=== PATIENT | female | born 1940 | race Hispanic/Latino ===

== ENCOUNTER 2019-06-23 12:27 | Inpatient (IN) | payer MEDICARE, OTHER ==
[~2019-06-23] VITALS: Ht 157.5 cm; Wt 82.2 kg
--- OUTSIDE RECORDS SUMMARY | 2019-06-23 12:31 | XMS REPORT | Continuity of Care Document ---
Author Author [employer] Address Unknown Phone Unavailable Care Team Providers Care Aurist Name Role Phone [employer] Unavailable Unavailable Problems Problem Status Onset Date Classification Date Reported Comments Source Noninfective gastroenteritis and colitis, unspecified 11/03/2017 02/09/2018 [facility] CHEST PAIN, HEADACHE Active 05/26/2016 [facility] HEADACHE Active 05/26/2016 [facility] Essential (primary) hypertension 02/09/2018 [facility] Type 2 diabetes mellitus without complications 02/09/2018 [facility] Anxiety (finding) Active Problem 02/09/2018 [facility] Cerebrovascular accident (disorder) Resolved Problem 02/09/2018 [facility] Diabetes mellitus (disorder) Active Problem 02/09/2018 [facility] Gastroesophageal reflux disease (disorder) Active Problem 02/09/2018 [facility] Hypertensive disorder, systemic arterial (disorder) Active Problem 02/09/2018 [facility] Insomnia (disorder) Active Problem 02/09/2018 [facility] Meningitis (disorder) Resolved Problem 02/09/2018 [facility] Medications Medication Details Route Status Patient Instructions Ordering Provider Order Date Source Famotidine 20 MG Oral Tablet [Pepcid] 20 mg=1 tab, PO, BID, # 14 tab, 0 Refill(s) Active 11/04/2017 [facility] Ondansetron 4 MG Oral Tablet [Zofran] 4 mg=1 tab, PO, BID, PRN Nausea, # 10 tab, 0 Refill(s) Active 11/04/2017 [facility] Ondansetron 4 mg, 2 mL, Route: IVP, Drug form: INJ, ONCE, Dosing Weight 81.818, kg, Priority: STAT, Start date: 11/03/17 18:30:00 [employer], Stop date: 11/03/17 18:30:00 CSTNotes: (Same as: Zofran) MEDICATION WASTE Product Size: 4 mg Product Wasted: ___ mg Inactive 11/04/2017 [facility] Famotidine 20 mg, 2 mL, Route: IVP, Drug form: INJ, ONCE, Dosing Weight 81.818, kg, Priority: STAT, Start date: 11/03/17 18:30:00 [employer]URN[employer], Stop date: 11/03/17 18:30:00 CSTNotes: (Same as: Pepcid) Can be dilute in 5-10cc NS IVP: Slow IV push over at least 2 minutes. Inactive 11/04/2017 [facility] GI cocktail 30 mL, Route: PO, Drug Form: SUSP, Dosing Weight 81.818, kg, ONCE, STAT, Start date: 11/03/17 18:30:00 [employer]URN[employer], Stop date: 11/03/17 18:30:00 CSTNotes: G.I. Cocktail=antacid with simethicone 22.5 mL - lidocaine viscous 7.5 mL Inactive 11/04/2017 [facility] Solu-Medrol 125 mg, 2 mL, Route: IV, Drug form: INJ, ONCE, Dosing Weight 83.6, kg, Priority: NOW, Start date: 05/27/16 16:54:00 CDT, Stop date: 05/27/16 16:54:00 CDTNotes: (Same as:Solu-MEDROL, A-Methapred) Inactive 05/27/2016 [facility] gabapentin 300 MG Oral Capsule 300 mg=1 cap, PO, BID, # 60 cap, 0 Refill(s) Active 05/27/2016 [facility] Protonix 40 mg, 1 tab, Route: PO, Drug form: ECTAB, Before Dinner, Dosing Weight 83.636, kg, Start date: 05/27/16 16:30:00 CDT, Duration: 30 day, Stop date: 06/25/16 16:30:00 CDTNotes: Tablet should not be chewed or crushed. (Same as: Protonix) Inactive 05/27/2016 [facility] Acetaminophen 300 MG / Codeine Phosphate 30 MG Oral Tablet [Tylenol with Codeine #3] 1 tab, PO, Q6H, PRN Pain, X 5 day, # 20 tab, 0 Refill(s) Active 05/27/2016 [facility] Acetaminophen 325 MG / Hydrocodone Bitartrate 5 MG Oral Tablet 1 tab, Route: PO, Drug Form: TAB, Dosing Weight 83.6, kg, Q6H, PRN Pain Score 4-6, Start date: 05/27/16 12:07:00 CDT, Duration: 30 day, Stop date: 06/26/16 12:06:00 CDTNotes: (Same as: [place] 325/5) Do not exceed 4gm/day of acetaminophen. Inactive 05/27/2016 [facility] Saline Flush 0.9% 10 ml, Route: IVP, Drug Form: INJ, Dosing Weight 83.636, kg, Q12H, Start date: 05/27/16 9:00:00 CDT, Duration: 30 day, Stop date: 06/25/16 21:00:00 CDTNotes: (Same as: BD Posiflush) Inactive 05/27/2016 [facility] Streptococcus pneumoniae serotype 1 capsular antigen diphtheria [id number] protein conjugate vaccine / Streptococcus pneumoniae serotype 14 capsular antigen diphtheria [id number] protein conjugate vaccine / Streptococcus pneumoniae serotype 18C capsular antigen d 0.5 mL, Route: IM, Drug Form: INJ, Daily, Start date: 05/27/16 9:00:00 CDT, Duration: 1 doses or times, Stop date: 05/27/16 9:00:00 CDTNotes: Lightly roll vial (DO NOT SHAKE) before administration. (Same as: Prevnar 13) Inactive 05/27/2016 [facility] Aspirin 81 mg, 1 tab, Route: PO, Drug form: ECTAB, Daily, Dosing Weight 83.636, kg, Start date: 05/27/16 9:00:00 CDT, Duration: 30 day, Stop date: 06/25/16 9:00:00 CDTNotes: Do not crush or chew. (Same As: Ecotrin) Inactive 05/27/2016 [facility] Hydrochlorothiazide 12.5 MG / valsartan 160 MG Oral Tablet 1 tab, PO, Daily, # 30 tab, 0 Refill(s) Active 05/27/2016 [facility] Alprazolam 0.25 MG Oral Tablet 0.25 mg=1 tab, PO, TID, PRN as needed for anxiety, 0 Refill(s) Active 05/27/2016 [facility] Trazodone Hydrochloride 50 MG Oral Tablet 50 mg=1 tab, PO, Bedtime, # 30 tab, 1 Refill(s) Active 05/27/2016 [facility] glimepiride 2 mg oral tablet 2 mg=1 tab, PO, Breakfast, # 30 tab, 0 Refill(s) Active 05/27/2016 [facility] omeprazole 40 mg oral delayed release capsule 40 mg=1 cap, PO, Daily, # 30 cap, 0 Refill(s) Active 05/27/2016 [facility] ferrous sulfate 325 mg oral enteric coated tablet 325 mg=1 tab, PO, BID, give with orange juice, # 60 tab, 1 Refill(s) Active 05/27/2016 [facility] Saline Flush 0.9% 10 ml, Route: IVP, Drug Form: INJ, Dosing Weight 83.636, kg, PRN, PRN Line Flush, Start date: 05/27/16 5:56:00 CDT, Duration: 30 day, Stop date: 06/26/16 5:55:00 CDTNotes: (Same as: BD Posiflush) Inactive 05/27/2016 [facility] Morphine 2 mg, 1 mL, Route: IVP, Drug form: INJ, Q15Min, Dosing Weight 83.636, kg, PRN Chest Pain, Start date: 05/27/16 5:56:00 CDT, Duration: 2 doses or times, Stop date: Limited # of timesNotes: (Same as:MO RPhine Sulfate) Inactive 05/27/2016 [facility] Nitroglycerin 0.4 mg, 1 tab, Route: SL, Drug form: TAB, Q5Min, Dosing Weight 83.636, kg, PRN Chest Pain, Start date: 05/27/16 5:56:00 CDT, Duration: 3 doses or times, Stop date: Limited # of timesNotes: (Same as:N itroquick, Nitrostat) "Do Not Crush" Sublingual tablet Inactive 05/27/2016 [facility] Ondansetron 4 mg, 1 tab, Route: PO, Drug form: TAB, Q8H, Dosing Weight 83.636, kg, PRN Nausea & Vomiting, Start date: 05/27/16 5:56:00 CDT, Duration: 30 day, Stop date: 06/26/16 5:55:00 CDTNotes: (Same as: Zofran) Inactive 05/27/2016 [facility] Acetaminophen 650 mg, 2 tab, Route: PO, Drug form: TAB, Q4H, Dosing Weight 83.636, kg, PRN Headache 1-5, Start date: 05/27/16 5:56:00 CDT, Duration: 30 day, Stop date: 06/26/16 5:55:00 CDTNotes: Do not exceed 4 gm /day. (Same as: Tylenol) Inactive 05/27/2016 [facility] Lovenox 40 mg, 0.4 mL, Route: SUB-Q, Drug form: INJ, [id number], Dosing Weight 83.636, kg, Start date: 05/27/16 5:00:00 CDT, Duration: 30 day, Stop date: 06/25/16 5:00:00 CDTNotes: (Same as: Lovenox) Inactive 05/27/2016 [facility] Aspirin 325 mg, 1 tab, Route: PO, Drug form: TAB, ONCE, Dosing Weight 83.636, kg, Priority: STAT, Start date: 05/27/16 3:38:00 CDT, Stop date: 05/27/16 3:38:00 CDTNotes: Take with food. Inactive 05/27/2016 [facility] Ibuprofen 600 mg, Route: PO, ONCE, Dosing Weight 83.636, kg, Priority: STAT, Start date: 05/27/16 0:21:00 CDT, Stop date: 05/27/16 0:21:00 CDT Inactive 05/27/2016 [facility] Acetaminophen 650 mg, Route: PO, Drug form: TAB, ONCE, Dosing Weight 83.636, kg, Priority: STAT, Start date: 05/27/16 0:21:00 CDT, Stop date: 05/27/16 0:21:00 CDT Inactive 05/27/2016 [facility] Allergies, Adverse Reactions, Alerts No Known Medication Allergies Immunizations Immunization Date Given Site Status Last Updated Comments Source pneumococcal 13-valent vaccine 05/27/2016 Not Given [facility] Results Order Name Results Value Reference Range Date Interpretation Comments Source CARDIAC ENZYMES CK MB Index <1.7 0.0 - 2.5 11/03/2017 [facility] CARDIAC ENZYMES CK MB <0.5 0.5 - 3.6 11/03/2017 [facility] CARDIAC ENZYMES Total CK 30 12 - 191 11/03/2017 [facility] CARDIAC ENZYMES Troponin-I <0.02 0.00 - 0.40 11/03/2017 [facility] CHEM PANEL Lipase Lvl 140 73 - 393 11/03/2017 [facility] CHEM PANEL eGFR 77 11/03/2017 Result Comment: The eGFR is calculated using the CKD-EPI formula. In most young, healthy individuals the eGFR will be >90 mL/min/1.73m2. The eGFR declines with age. An eGFR of 60-89 may be normal in some populations, particularly the elderly, for whom the CKD-EPI formula has not been extensively validated. Use of the eGFR is not recommended in the following populations:

Individuals with unstable creatinine concentrations, including patients and those with serious co-morbid conditions.

Patients with extremes in muscle mass or diet.

The data above are obtained from the National Kidney Disease Education Program (NKDEP) which additionally recommends that when the eGFR is used in patients with extremes of body mass index for purposes of drug dosing, the eGFR should be multiplied by the estimated BMI. [facility] CHEM PANEL A/G Ratio 0.9 0.7 - 1.6 11/03/2017 [facility] CHEM PANEL Globulin 4.4 2.7 - 4.2 11/03/2017 [facility] CHEM PANEL AGAP 14.7 10.0 - 20.0 11/03/2017 [facility] CHEM PANEL B/C Ratio 19 6 - 25 11/03/2017 [facility] CHEM PANEL Bili Total 0.5 0.2 - 1.3 11/03/2017 [facility] CHEM PANEL Alk Phos 85 39 - 136 11/03/2017 [facility] CHEM PANEL Albumin Lvl 3.8 3.5 - 5.0 11/03/2017 [facility] CHEM PANEL ALT 24 0 - 65 11/03/2017 [facility] CHEM PANEL AST 17 0 - 37 11/03/2017 [facility] CHEM PANEL Calcium Lvl 9.1 8.5 - 10.5 11/03/2017 [facility] CHEM PANEL Total Protein 8.2 6.4 - 8.4 11/03/2017 [facility] CHEM PANEL Potassium Lvl 3.7 3.5 - 5.1 11/03/2017 [facility] CHEM PANEL Chloride Lvl 102 95 - 109 11/03/2017 [facility] CHEM PANEL CO2 23 24 - 32 11/03/2017 [facility] CHEM PANEL Glucose Lvl 162 70 - 99 11/03/2017 [facility] CHEM PANEL BUN 15 7 - 22 11/03/2017 [facility] CHEM PANEL Creatinine Lvl 0.77 0.50 - 1.40 11/03/2017 [facility] CHEM PANEL Sodium Lvl 136 135 - 145 11/03/2017 [facility] CHEM PANEL eGFR 86 11/03/2017 Result Comment: The eGFR is calculated using the CKD-EPI formula. In most young, healthy individuals the eGFR will be >90 mL/min/1.73m2. The eGFR declines with age. An eGFR of 60-89 may be normal in some populations, particularly the elderly, for whom the CKD-EPI formula has not been extensively validated. Use of the eGFR is not recommended in the following populations:

Individuals with unstable creatinine concentrations, including patients and those with serious co-morbid conditions.

Patients with extremes in muscle mass or diet.

The data above are obtained from the National Kidney Disease Education Program (NKDEP) which additionally recommends that when the eGFR is used in patients with extremes of body mass index for purposes of drug dosing, the eGFR should be multiplied by the estimated BMI. [facility] CHEM PANEL POC Creatinine 0.7 0.5 - 1.4 11/03/2017 [facility] HEMATOLOGY Lymphocytes 12.3 20.0 - 40.0 11/03/2017 [facility] HEMATOLOGY Segs 83.2 45.0 - 75.0 11/03/2017 [facility] HEMATOLOGY Segs-Bands # 11.1 1.5 - 8.1 11/03/2017 [facility] HEMATOLOGY Basophils 0.4 0.0 - 1.0 11/03/2017 [facility] HEMATOLOGY Eosinophils 0.4 0.0 - 4.0 11/03/2017 [facility] HEMATOLOGY Monocytes 3.7 2.0 - 12.0 11/03/2017 [facility] HEMATOLOGY Lymphocytes # 1.6 1.0 - 5.5 11/03/[address] [facility] Monocytes # 0.5 0.0 - 0.8 11/03/2017 [facility] HEMATOLOGY RBC 4.52 4.20 - 5.40 11/03/[address] [facility] Hgb 13.5 12.0 - 16.0 11/03/[address] [facility] WBC 13.3 3.7 - 10.4 11/03/[address] [facility] Platelet 267 133 - 450 11/03/[address] [facility] MPV 7.4 7.4 - 10.4 11/03/2017 [facility] HEMATOLOGY MCH 29.9 27.0 - 31.0 11/03/2017 [facility] HEMATOLOGY MCHC 33.7 32.0 - 36.0 11/03/2017 [facility] HEMATOLOGY RDW 14.3 11.5 - 14.5 11/03/2017 [facility] HEMATOLOGY Hct 40.2 36.0 - 48.0 11/03/2017 [facility] HEMATOLOGY MCV 88.8 80.0 - 98.0 11/03/2017 [facility] CARDIAC ENZYMES Total CK 46 12 - 191 05/27/2016 [facility] CARDIAC ENZYMES Troponin-I <0.02 0.00 - 0.40 05/27/2016 [facility] CARDIAC ENZYMES Troponin-I <0.02 0.00 - 0.40 05/27/2016 [facility] CARDIAC ENZYMES Total CK 48 12 - 191 05/27/2016 [facility] LIPIDS VLDL 73 05/27/2016 [facility] LIPIDS LDL (Calculated) 66 <=99 mg/dL 05/27/2016 [facility] LIPIDS Trig 364 <=149 mg/dL 05/27/2016 [facility] LIPIDS Chol 168 <=199 mg/dL 05/27/2016 [facility] LIPIDS HDL 29 >=61 mg/dL 05/27/2016 [facility] LIPIDS CHD Risk 5.79 3.90 - 5.80 05/27/2016 [facility] URINE AND STOOL UA Urobilinogen <=1.0 mg/dL 0.1 - 1.0 05/27/2016 [facility] URINE AND STOOL UA Color Ltyellow 05/27/2016 [facility] URINE AND STOOL UA RBC 1 0 - 2 05/27/2016 [facility] URINE AND STOOL UA Ketones Negative mg/dL Negative mg/dL 05/27/2016 [facility] URINE AND STOOL UA Nitrite Negative (05/27/16 1:15 AM) Negative 05/27/2016 [facility] URINE AND STOOL UA Leuk Est Trace *ABN* (05/27/16 1:15 AM) Negative 05/27/2016 [facility] URINE AND STOOL UA Sq Epi Occasional /LPF Few /LPF 05/27/2016 [facility] URINE AND STOOL UA WBC 2 0 - 5 05/27/2016 [facility] URINE AND STOOL UA Protein Negative mg/dL Negative mg/dL 05/27/2016 [facility] URINE AND STOOL UA Spec Grav 1.010 <=1.030 05/27/2016 [facility] URINE AND STOOL UA pH 6.0 5.0 - 8.0 05/27/2016 [facility] URINE AND STOOL UA Blood Negative (05/27/16 1:15 AM) Negative 05/27/2016 [facility] URINE AND STOOL UA Bili Negative *NA* (05/27/16 1:15 AM) Negative 05/27/2016 [facility] URINE AND STOOL UA Glucose Negative mg/dL Negative mg/dL 05/27/2016 [facility] URINE AND STOOL UA Turbidity Clear (05/27/16 1:15 AM) Clear 05/27/2016 [facility] CARDIAC ENZYMES Total CK 67 12 - 191 05/27/2016 [facility] CARDIAC ENZYMES CK MB 1.0 0.5 - 3.6 05/27/2016 [facility] CARDIAC ENZYMES Troponin-I <0.02 0.00 - 0.40 05/27/2016 [facility] CARDIAC ENZYMES CK MB Index 1.5 0.0 - 2.5 05/27/2016 [facility] CHEM PANEL Globulin 4.1 2.7 - 4.2 05/27/2016 [facility] CHEM PANEL A/G Ratio 0.9 0.7 - 1.6 05/27/2016 [facility] CHEM PANEL AGAP 10.6 10.0 - 20.0 05/27/2016 [facility] CHEM PANEL B/C Ratio 22 6 - 25 05/27/2016 [facility] CHEM PANEL eGFR 81 05/27/2016 Result Comment: The eGFR is calculated using the CKD-EPI formula. In most young, healthy individuals the eGFR will be >90 mL/min/1.73m2. The eGFR declines with age. An eGFR of 60-89 may be normal in some populations, particularly the elderly, for whom the CKD-EPI formula has not been extensively validated. Use of the eGFR is not recommended in the following populations:

Individuals with unstable creatinine concentrations, including patients and those with serious co-morbid conditions.

Patients with extremes in muscle mass or diet.

The data above are obtained from the National Kidney Disease Education Program (NKDEP) which additionally recommends that when the eGFR is used in patients with extremes of body mass index for purposes of drug dosing, the eGFR should be multiplied by the estimated BMI. [facility] CHEM PANEL Bili Total 0.2 0.2 - 1.3 05/27/2016 [facility] CHEM PANEL BUN 16 7 - 22 05/27/2016 [facility] CHEM PANEL Glucose Lvl 121 70 - 99 05/27/2016 [facility] CHEM PANEL Chloride Lvl 103 95 - 109 05/27/2016 [facility] CHEM PANEL Potassium Lvl 3.6 3.5 - 5.1 05/27/2016 [facility] CHEM PANEL Total Protein 7.7 6.4 - 8.4 05/27/2016 [facility] CHEM PANEL Creatinine Lvl 0.74 0.50 - 1.40 05/27/2016 [facility] CHEM PANEL Calcium Lvl 8.8 8.5 - 10.5 05/27/2016 [facility] CHEM PANEL Sodium Lvl 136 135 - 145 05/27/2016 [facility] CHEM PANEL CO2 26 24 - 32 05/27/2016 [facility] CHEM PANEL Alk Phos 68 39 - 136 05/27/2016 [facility] CHEM PANEL AST 24 0 - 37 05/27/2016 [facility] CHEM PANEL ALT 33 0 - 65 05/27/2016 [facility] CHEM PANEL Albumin Lvl 3.6 3.5 - 5.0 05/27/2016 [facility] HEMATOLOGY MCH 30.6 27.0 - 31.0 05/27/2016 [facility] HEMATOLOGY MCV 89.6 80.0 - 98.0 05/27/2016 [facility] HEMATOLOGY Hct 37.1 36.0 - 48.0 05/27/2016 [facility] HEMATOLOGY Hgb 12.7 12.0 - 16.0 05/27/2016 [facility] HEMATOLOGY RDW 13.3 11.5 - 14.5 05/27/2016 [facility] HEMATOLOGY Platelet 261 133 - 450 05/27/2016 [facility] HEMATOLOGY MPV 7.1 7.4 - 10.4 05/27/2016 [facility] HEMATOLOGY MCHC 34.1 32.0 - 36.0 05/27/2016 [facility] HEMATOLOGY RBC 4.14 4.20 - 5.40 05/27/2016 [facility] HEMATOLOGY WBC 7.1 3.7 - 10.4 05/27/2016 [facility] HEMATOLOGY Eosinophils 3.6 0.0 - 4.0 05/27/2016 [facility] HEMATOLOGY Basophils 0.6 0.0 - 1.0 05/27/2016 [facility] HEMATOLOGY Monocytes 6.6 2.0 - 12.0 05/27/2016 [facility] HEMATOLOGY Segs 51.1 45.0 - 75.0 05/27/2016 [facility] HEMATOLOGY Lymphocytes 38.1 20.0 - 40.0 05/27/2016 [facility] HEMATOLOGY Monocytes # 0.5 0.0 - 0.8 05/27/2016 [facility] HEMATOLOGY Lymphocytes # 2.7 1.0 - 5.5 05/27/2016 [facility] HEMATOLOGY Segs-Bands # 3.7 1.5 - 8.1 05/27/2016 [facility] HEMATOLOGY Eosinophils # 0.3 0.0 - 0.5 05/27/2016 [facility] Pathology Reports No Data Provided for This Section Diagnostic Reports Report Value Date Source Brain wo contrast CT Patient Name: FAHEEM KNAPP : 1940; Age: 75 years y/o Female MR: [id number] Study: Brain wo contrast CT 05/26/2016 10:12 PM CDT Ordering Physician: Agus Acevedo Comparison: 08/04/2005 Clinical Indication: Headache with Dizziness and Giddiness; cephalgia Multiple computerized axial tomograms of the head were obtained without contrast. Age-appropriate cortical and cerebellar volume loss is noted with compensatory enlargement of the ventricles and subarachnoid spaces. Vascular calcification is noted at the carotid siphons and/or vertebrobasilar arteries. There is no acute cortical infarction, hemorrhage or mass lesion noted. No mass effect or midline shift. Ventricles are otherwise normal in size, shape and position. The base of skull and bony calvarium are intact. Old infarcts are present at the dorsal right cerebellar hemisphere. Old lacunar infarcts are present at the left basal ganglia. A 10 x 11 mm old lacunar infarction is present at the left basal ganglia interval from the previous exam. Mastoid air cells and paranasal sinuses are otherwise clear. IMPRESSION: 1. No acute intracranial abnormality. 2. Senescent and chronic ischemic changes are noted intracranially similar to the previous exam. There is interval demonstration of a 10 x 11 mm chronic or old lacunar infarction present at the left basal ganglia when compared to the previous exam. SL: [id number] 05/26/2016 [facility] Consultation Notes No Data Provided for This Section Discharge Summaries No Data Provided for This Section History and Physicals No Data Provided for This Section Vital Signs Vital Sign Value Date Comments Source Systolic (mm Hg) 147 11/04/2017 [facility] Diastolic (mm Hg) 62 11/04/2017 [facility] Respitory Rate 17 11/04/2017 [facility] Temperature Oral (F) 98.4 F 11/04/2017 [facility] Systolic (mm Hg) 165 11/04/2017 [facility] Diastolic (mm Hg) 56 11/04/2017 [facility] Respitory Rate 20 11/04/2017 [facility] Temperature Oral (F) 98.3 F 11/04/2017 [facility] Systolic (mm Hg) 160 11/04/2017 [facility] Diastolic (mm Hg) 62 11/04/2017 [facility] Respitory Rate 21 11/04/2017 [facility] Weight 81.818 11/03/2017 [facility] BMI Calculated 35.23 11/03/2017 [facility] Height 152.4 cm 11/03/2017 [facility] Temperature Oral (F) 97.8 F 11/03/2017 [facility] Heart Rate 89 11/03/2017 [facility] Respitory Rate 15 05/27/2016 [facility] Systolic (mm Hg) 151 05/27/2016 [facility] Diastolic (mm Hg) 65 05/27/2016 [facility] Temperature Oral (F) 98.0 F 05/27/2016 [facility] Heart Rate 74 05/27/2016 [facility] Systolic (mm Hg) 124 05/27/2016 [facility] Diastolic (mm Hg) 56 05/27/2016 [facility] Respitory Rate 15 05/27/2016 [facility] Heart Rate 66 05/27/2016 [facility] Temperature Oral (F) 98.3 F 05/27/2016 [facility] Respitory Rate 18 05/27/2016 [facility] Systolic (mm Hg) 150 05/27/2016 [facility] Diastolic (mm Hg) 72 05/27/2016 [facility] Temperature Oral (F) 97.6 F 05/27/2016 [facility] Height 152.4 cm 05/27/2016 [facility] Weight 83.6 05/27/2016 [facility] BMI Calculated 35.99 05/27/2016 [facility] Heart Rate 64 05/27/2016 [facility] Weight 83.636 05/27/2016 [facility] Encounters Location Location Details Encounter Type Encounter Number Reason For Visit Attending Provider ADM Date DC Date Status Source [facility] Observation [id number] Marcus Kohli 05/27/2016 05/27/2016 [facility] [id number] Ike Arizmendi 11/03/2017 11/04/2017 [facility] Procedures Procedure Code Date Perfomer Comments Source Cholecystectomy [id number] [facility] Assessment and Plan No Data Provided for This Section Plan of Care No Data Provided for This Section Social History Social History Date Source Social History TypeResponse Substance Abuse Use: None. Alcohol Never Smoking Status Never smoker; Previous treatment: None; Exposure to Tobacco Smoke None; Cigarette Smoking Last 365 Days No; Reg Smoking Cessation Counseling No entered on: 11/03/17 05/27/2016 [facility] Family History No Data Provided for This Section Advance Directives No Data Provided for This Section Functional Status No Data Provided for This Section
--- OUTSIDE RECORDS SUMMARY | 2019-06-23 12:31 | XMS REPORT | Summary of Care ---
Author Author [facility] Organization [facility] Address Unknown Phone Unavailable Encounter HQ Meghna(FIN) [id number] Date(s): 11/03/17 - 11/03/17 [facility] [address] [place] [address]- Encounter Diagnosis Enteritis (Discharge Diagnosis) - 11/03/17 Noninfective gastroenteritis and colitis, unspecified (Final) - 11/08/17 Essential (primary) hypertension (Final) - Type 2 diabetes mellitus without complications (Final) - Discharge Disposition: Home or Self Care Attending Physician: Ike Arizmendi DO Vital Signs 1 2 3 Most recent to oldest [Reference Range]: 152.4 cm (11/03/17 2:55 PM) Height 98.4 DegF (11/03/17 8:50 PM) 98.3 DegF (11/03/17 7:05 PM) 97.8 DegF (11/03/17 2:55 PM) Temperature Oral [96.4-99.1 DegF] 147/62 mmHg *HI* (11/03/17 8:50 PM) 165/56 mmHg *HI* (11/03/17 8:00 PM) 160/62 mmHg *HI* (11/03/17 7:05 PM) Blood Pressure [90-140/60-90 mmHg] 17 BRMIN (11/03/17 8:50 PM) 20 BRMIN (11/03/17 8:00 PM) 21 BRMIN *HI* (11/03/17 7:05 PM) Respiratory Rate [14-20 BRMIN] 89 bpm (11/03/17 2:55 PM) Peripheral Pulse Rate [60-100 bpm] 81.818 kg (11/03/17 2:55 PM) Weight 35.23 m2 (11/03/17 2:55 PM) Body Mass Index Problem List Condition Effective Dates Status Health Status Informant Anxiety(Confirmed) Active Stroke(Confirmed) Resolved Diabetes(Confirmed) Active GERD Active (gastroesophageal reflux disease)(Confirmed) HTN Active (hypertension)(Confi rmed) Insomnia(Confirmed) Active Meningitis(Confirmed Resolved ) Allergies, Adverse Reactions, Alerts Substance Reaction Severity Status NKDA Active Medications famotidine 20 mg, 2 mL, Route: IVP, Drug form: INJ, ONCE, Dosing Weight 81.818, kg, Priorit y: STAT, Start date: 11/03/17 18:30:00 [employer], Stop date: 11/03/17 18:30:00 [employer] Notes: (Same as: Pepcid)Can be dilute in 5-10cc NS IVP: Slow IV push over at le ast 2 minutes. Start Date: 11/03/17 Stop Date: 11/03/17 Status: Completed GI cocktail 30 mL, Route: PO, Drug Form: SUSP, Dosing Weight 81.818, kg, ONCE, STAT, Start d ate: 11/03/17 18:30:00 [employer], Stop date: 11/03/17 18:30:00 [employer] Notes: G.I. Cocktail=antacid with simethicone 22.5 mL - lidocaine viscous 7.5 mL Start Date: 11/03/17 Stop Date: 11/03/17 Status: Completed ondansetron 4 mg, 2 mL, Route: IVP, Drug form: INJ, ONCE, Dosing Weight 81.818, kg, Priority : STAT, Start date: 11/03/17 18:30:00 [employer], Stop date: 11/03/17 18:30:00 [employer] Notes: (Same as: Zofran) MEDICATION WASTE Product Size: 4 mgProduct Was marin: ___ mg Start Date: 11/03/17 Stop Date: 11/03/17 Status: Completed Pepcid 20 mg oral tablet 20 mg=1 tab, PO, BID, # 14 tab, 0 Refill(s) Start Date: 11/03/17 Stop Date: 11/10/17 Status: Ordered Zofran 4 mg oral tablet 4 mg=1 tab, PO, BID, PRN Nausea, # 10 tab, 0 Refill(s) Start Date: 11/03/17 Stop Date: 11/08/17 Status: Ordered Results ELECTROLYTES Most recent to 1 2 oldest [Reference Range]: Sodium Lvl [135-145 136 mEq/L mEq/L] (11/03/17 5:36 PM) Potassium Lvl 3.7 mEq/L [3.5-5.1 mEq/L] (11/03/17 5:36 PM) Chloride Lvl [95-109 102 mEq/L mEq/L] (11/03/17 5:36 PM) CO2 [24-32 mEq/L] 23 mEq/L *LOW* (11/03/17 5:36 PM) AGAP [10.0-20.0 14.7 mEq/L mEq/L] (11/03/17 5:36 PM) CHEM PANEL Most recent to 1 2 oldest [Reference Range]: Creatinine Lvl 0.77 mg/dL [0.50-1.40 mg/dL] (11/03/17 5:36 PM) eGFR 77 mL/min/1.73m2 1 86 mL/min/1.73m2 2 *NA* *NA* (11/03/17 5:36 PM) (11/03/17 5:36 PM) BUN [7-22 mg/dL] 15 mg/dL (11/03/17 5:36 PM) B/C Ratio [6-25] 19 (11/03/17 5:36 PM) Glucose Lvl [70-99 162 mg/dL mg/dL] *HI* (11/03/17 5:36 PM) POC Creatinine 0.7 mg/dL [0.5-1.4 mg/dL] (11/03/17 5:36 PM) Total Protein 8.2 g/dL [6.4-8.4 g/dL] (11/03/17 5:36 PM) Albumin Lvl [3.5-5.0 3.8 g/dL g/dL] (11/03/17 5:36 PM) Globulin [2.7-4.2 4.4 g/dL g/dL] *HI* (11/03/17 5:36 PM) A/G Ratio [0.7-1.6] 0.9 (11/03/17 5:36 PM) Calcium Lvl 9.1 mg/dL [8.5-10.5 mg/dL] (11/03/17 5:36 PM) ALT [0-65 unit/L] 24 unit/L (11/03/17 5:36 PM) AST [0-37 unit/L] 17 unit/L (11/03/17 5:36 PM) Alk Phos [39-136 85 unit/L unit/L] (11/03/17 5:36 PM) Bili Total [0.2-1.3 0.5 mg/dL mg/dL] (11/03/17 5:36 PM) Lipase Lvl [73-393 140 unit/L unit/L] (11/03/17 5:36 PM) 1Result Comment: The eGFR is calculated using the [...] from the National Kidney Disease Education Program ( NKDEP) which additionally recommends that when the eGFR is used in patients with extremes of body mass index for purposes of drug dosing, the eGFR should be mul tiplied by the estimated BMI. 2Result Comment: The eGFR is calculated using the [...] from the National Kidney Disease Education Program ( NKDEP) which additionally recommends that when the eGFR is used in patients with extremes of body mass index for purposes of drug dosing, the eGFR should be mul tiplied by the estimated BMI. CARDIAC ENZYMES Most recent to 1 2 oldest [Reference Range]: Total CK [12-191 30 unit/L unit/L] (11/03/17 5:36 PM) CK MB [0.5-3.6 <0.5 ng/mL ng/mL] (11/03/17 5:36 PM) CK MB Index <1.7 [0.0-2.5] (11/03/17 5:36 PM) Troponin-I <0.02 ng/mL [0.00-0.40 ng/mL] (11/03/17 5:36 PM) HEMATOLOGY Most recent to 1 2 oldest [Reference Range]: WBC [3.7-10.4 K/CMM] 13.3 K/CMM *HI* (11/03/17 5:36 PM) RBC [4.20-5.40 4.52 M/CMM M/CMM] (11/03/17 5:36 PM) Hgb [12.0-16.0 g/dL] 13.5 g/dL (11/03/17 5:36 PM) Hct [36.0-48.0 %] 40.2 % (11/03/17 5:36 PM) MCV [80.0-98.0 fL] 88.8 fL (11/03/17 5:36 PM) MCH [27.0-31.0 pg] 29.9 pg (11/03/17 5:36 PM) MCHC [32.0-36.0 33.7 g/dL g/dL] (11/03/17 5:36 PM) RDW [11.5-14.5 %] 14.3 % (11/03/17 5:36 PM) MPV [7.4-10.4 fL] 7.4 fL (11/03/17 5:36 PM) Platelet [133-450 267 K/CMM K/CMM] (11/03/17 5:36 PM) Segs [45.0-75.0 %] 83.2 % *HI* (11/03/17 5:36 PM) Lymphocytes 12.3 % [20.0-40.0 %] *LOW* (11/03/17 5:36 PM) Monocytes [2.0-12.0 3.7 % %] (11/03/17 5:36 PM) Eosinophils [0.0-4.0 0.4 % %] (11/03/17 5:36 PM) Basophils [0.0-1.0 0.4 % %] (11/03/17 5:36 PM) Segs-Bands # 11.1 K/CMM [1.5-8.1 K/CMM] *HI* (11/03/17 5:36 PM) Lymphocytes # 1.6 K/CMM [1.0-5.5 K/CMM] (11/03/17 5:36 PM) Monocytes # [0.0-0.8 0.5 K/CMM K/CMM] (11/03/17 5:36 PM) Immunizations Not Given Vaccine Date Status Refusal Reason pneumococcal 13-valent vaccine 05/27/16 Not Given Patient Refuses Procedures Procedure Date Related Diagnosis Body Site Status Cholecystectomy Completed Social History Social History Type Response Substance Abuse Use: None. Alcohol Never Smoking Status Never smoker; Previous treatment: None; Exposure to Tobacco Smoke None; Cigarette Smoking Last 365 Days No; Reg Smoking Cessation Counseling No entered on: 11/03/17 Assessment and Plan No data available for this section
--- OUTSIDE RECORDS SUMMARY | 2019-06-23 12:31 | XMS REPORT | Summary of Care ---
Author Author [facility] Organization [facility] Address Unknown Phone Unavailable Encounter HQ Meghna(PABLO) [id number] Date(s): 05/26/16 - 05/27/16 [facility] [address] [place] [address]- [phone] Discharge Disposition: Home or Self Care Attending Physician: Marcus Kohli MD Admitting Physician: Marcus Kohli MD Vital Signs 1 2 3 Most recent to oldest [Reference Range]: 152.4 cm (05/27/16 5:56 AM) Height 98.0 DegF (05/27/16 3:47 PM) 98.3 DegF (05/27/16 11:40 AM) 97.6 DegF (05/27/16 7:20 AM) Temperature Oral [96.4-99.1 DegF] 151/65 mmHg *HI* (05/27/16 3:47 PM) 124/56 mmHg (05/27/16 11:40 AM) 150/72 mmHg *HI* (05/27/16 7:20 AM) Blood Pressure [90-140/60-90 mmHg] 15 BRMIN (05/27/16 3:47 PM) 15 BRMIN (05/27/16 11:40 AM) 18 BRMIN (05/27/16 7:20 AM) Respiratory Rate [14-20 BRMIN] 74 bpm (05/27/16 3:47 PM) 66 bpm (05/27/16 11:40 AM) 64 bpm (05/26/16 11:54 PM) Peripheral Pulse Rate [60-100 bpm] 83.6 kg (05/27/16 5:56 AM) 83.636 kg (05/26/16 10:08 PM) Weight 35.99 m2 (05/27/16 5:56 AM) Body Mass Index Problem List Condition Effective Dates Status Health Status Informant Anxiety(Confirmed) Active Stroke(Confirmed) Resolved Diabetes(Confirmed) Active GERD Active (gastroesophageal reflux disease)(Confirmed) HTN Active (hypertension)(Confi rmed) Insomnia(Confirmed) Active Meningitis(Confirmed Resolved ) Allergies, Adverse Reactions, Alerts Substance Reaction Severity Status NKDA Active Medications acetaminophen 650 mg, 2 tab, Route: PO, Drug form: TAB, Q4H, Dosing Weight 83.636, kg, PRN Hea dache 1-5, Start date: 05/27/16 5:56:00 CDT, Duration: 30 day, Stop date: 5:55:00 CDT Notes: Do not exceed 4 gm/day. (Same as: Tylenol) Start Date: 05/27/16 Stop Date: 05/27/16 Status: Discontinued acetaminophen 650 mg, Route: PO, Drug form: TAB, ONCE, Dosing Weight 83.636, kg, Priority: STA T, Start date: 05/27/16 0:21:00 CDT, Stop date: 05/27/16 0:21:00 CDT Start Date: 05/27/16 Stop Date: 05/27/16 Status: Completed acetaminophen-hydrocodone 325 mg-5 mg oral tablet 1 tab, Route: PO, Drug Form: TAB, Dosing Weight 83.6, kg, Q6H, PRN Pain Score 4- 6, Start date: 05/27/16 12:07:00 CDT, Duration: 30 day, Stop date: 06/26/16 12:0 6:00 CDT Notes: (Same as: [place] 325/5) Do not exceed 4gm/day of acetaminophen. Start Date: 05/27/16 Stop Date: 05/27/16 Status: Discontinued ALPRAZOLam 0.25 mg oral tablet 0.25 mg=1 tab, PO, TID, PRN as needed for anxiety, 0 Refill(s) Start Date: 05/27/16 Status: Ordered aspirin 325 mg, 1 tab, Route: PO, Drug form: TAB, ONCE, Dosing Weight 83.636, kg, Priori ty: STAT, Start date: 05/27/16 3:38:00 CDT, Stop date: 05/27/16 3:38:00 CDT Notes: Take with food. Start Date: 05/27/16 Stop Date: 05/27/16 Status: Completed aspirin 81 mg, 1 tab, Route: PO, Drug form: ECTAB, Daily, Dosing Weight 83.636, kg, Star t date: 05/27/16 9:00:00 CDT, Duration: 30 day, Stop date: 06/25/16 9:00:00 CDT Notes: Do not crush or chew.(Same As: Ecotrin) Start Date: 05/27/16 Stop Date: 05/27/16 Status: Discontinued ferrous sulfate 325 mg oral enteric coated tablet 325 mg=1 tab, PO, BID, give with orange juice, # 60 tab, 1 Refill(s) Start Date: 05/27/16 Status: Ordered gabapentin 300 mg oral capsule 300 mg=1 cap, PO, BID, # 60 cap, 0 Refill(s) Start Date: 05/27/16 Status: Ordered glimepiride 2 mg oral tablet 2 mg=1 tab, PO, Breakfast, # 30 tab, 0 Refill(s) Start Date: 05/27/16 Status: Ordered hydrochlorothiazide-valsartan 12.5 mg-160 mg oral tablet 1 tab, PO, Daily, # 30 tab, 0 Refill(s) Start Date: 05/27/16 Status: Ordered ibuprofen 600 mg, Route: PO, ONCE, Dosing Weight 83.636, kg, Priority: STAT, Start date: 0 05/27/16 0:21:00 CDT, Stop date: 05/27/16 0:21:00 CDT Start Date: 05/27/16 Stop Date: 05/27/16 Status: Completed Lovenox 40 mg, 0.4 mL, Route: SUB-Q, Drug form: INJ, [id number], Dosing Weight 83.636, kg, Start date: 05/27/16 5:00:00 CDT, Duration: 30 day, Stop date: 06/25/16 5:00:00 CDT Notes: (Same as: Lovenox) Start Date: 05/27/16 Stop Date: 05/27/16 Status: Discontinued morphine Sulfate 2 mg, 1 mL, Route: IVP, Drug form: INJ, Q15Min, Dosing Weight 83.636, kg, PRN Ch est Pain, Start date: 05/27/16 5:56:00 CDT, Duration: 2 doses or times, Stop lucy e: Limited # of times Notes: (Same as:MORPhine Sulfate) Start Date: 05/27/16 Stop Date: 05/27/16 Status: Discontinued nitroglycerin SL Tab 0.4 mg, 1 tab, Route: SL, Drug form: TAB, Q5Min, Dosing Weight 83.636, kg, PRN C hest Pain, Start date: 05/27/16 5:56:00 CDT, Duration: 3 doses or times, Stop da te: Limited # of times Notes: (Same as:Nitroquick, Nitrostat)"Do Not Crush" Sublingual tablet Start Date: 05/27/16 Stop Date: 05/27/16 Status: Discontinued omeprazole 40 mg oral delayed release capsule 40 mg=1 cap, PO, Daily, # 30 cap, 0 Refill(s) Start Date: 05/27/16 Status: Ordered ondansetron 4 mg, 1 tab, Route: PO, Drug form: TAB, Q8H, Dosing Weight 83.636, kg, PRN Nause a & Vomiting, Start date: 05/27/16 5:56:00 CDT, Duration: 30 day, Stop date: 06/26/16 5:55:00 CDT Notes: (Same as: Zofran) Start Date: 05/27/16 Stop Date: 05/27/16 Status: Discontinued pneumococcal 13-valent vaccine 0.5 mL, Route: IM, Drug Form: INJ, Daily, Start date: 05/27/16 9:00:00 CDT, Dura tion: 1 doses or times, Stop date: 05/27/16 9:00:00 CDT Notes: Lightly roll vial (DO NOT SHAKE) before administration. (Same as: Prevna r 13) Start Date: 05/27/16 Stop Date: 05/27/16 Status: Completed Protonix 40 mg, 1 tab, Route: PO, Drug form: ECTAB, Before Dinner, Dosing Weight 83.636, kg, Start date: 05/27/16 16:30:00 CDT, Duration: 30 day, Stop date: 06/25/16 16: 30:00 CDT Notes: Tablet should not be chewed or crushed.(Same as: Protonix) Start Date: 05/27/16 Stop Date: 05/27/16 Status: Discontinued Saline Flush 0.9% 10 ml, Route: IVP, Drug Form: INJ, Dosing Weight 83.636, kg, PRN, PRN Line Flush , Start date: 05/27/16 5:56:00 CDT, Duration: 30 day, Stop date: 06/26/16 5:55:0 0 CDT Notes: (Same as: BD Posiflush) Start Date: 05/27/16 Stop Date: 05/27/16 Status: Discontinued Saline Flush 0.9% 10 ml, Route: IVP, Drug Form: INJ, Dosing Weight 83.636, kg, Q12H, Start date: 0 05/27/16 9:00:00 CDT, Duration: 30 day, Stop date: 06/25/16 21:00:00 CDT Notes: (Same as: BD Posiflush) Start Date: 05/27/16 Stop Date: 05/27/16 Status: Discontinued Solu-MEDROL 125 mg, 2 mL, Route: IV, Drug form: INJ, ONCE, Dosing Weight 83.6, kg, Priority: NOW, Start date: 05/27/16 16:54:00 CDT, Stop date: 05/27/16 16:54:00 CDT Notes: (Same as:Solu-MEDROL, A-Methapred) Start Date: 05/27/16 Stop Date: 05/27/16 Status: Completed trazodone 50 mg oral tablet 50 mg=1 tab, PO, Bedtime, # 30 tab, 1 Refill(s) Start Date: 05/27/16 Status: Ordered Tylenol with Codeine #3 oral tablet 1 tab, PO, Q6H, PRN Pain, X 5 day, # 20 tab, 0 Refill(s) Start Date: 05/27/16 Stop Date: 06/01/16 Status: Ordered Results ELECTROLYTES 1 2 3 Most recent to oldest [Reference Range]: 136 mEq/L (05/27/16 1:08 AM) Sodium Lvl [135-145 mEq/L] 3.6 mEq/L (05/27/16 1:08 AM) Potassium Lvl [3.5-5.1 mEq/L] 103 mEq/L (05/27/16 1:08 AM) Chloride Lvl [95-109 mEq/L] 26 mEq/L (05/27/16 1:08 AM) CO2 [24-32 mEq/L] 10.6 mEq/L (05/27/16 1:08 AM) AGAP [10.0-20.0 mEq/L] CHEM PANEL 1 2 3 Most recent to oldest [Reference Range]: 0.74 mg/dL (05/27/16 1:08 AM) Creatinine Lvl [0.50-1.40 mg/dL] 81 mL/min/1.73m2 1 *NA* (05/27/16 1:08 AM) eGFR 16 mg/dL (05/27/16 1:08 AM) BUN [7-22 mg/dL] 22 (05/27/16 1:08 AM) B/C Ratio [6-25] 121 mg/dL *HI* (05/27/16 1:08 AM) Glucose Lvl [70-99 mg/dL] 7.7 g/dL (05/27/16 1:08 AM) Total Protein [6.4-8.4 g/dL] 3.6 g/dL (05/27/16 1:08 AM) Albumin Lvl [3.5-5.0 g/dL] 4.1 g/dL (05/27/16 1:08 AM) Globulin [2.7-4.2 g/dL] 0.9 (05/27/16 1:08 AM) A/G Ratio [0.7-1.6] 8.8 mg/dL (05/27/16 1:08 AM) Calcium Lvl [8.5-10.5 mg/dL] 33 unit/L (05/27/16 1:08 AM) ALT [0-65 unit/L] 24 unit/L (05/27/16 1:08 AM) AST [0-37 unit/L] 68 unit/L (05/27/16 1:08 AM) Alk Phos [39-136 unit/L] 0.2 mg/dL (05/27/16 1:08 AM) Bili Total [0.2-1.3 mg/dL] 1Result Comment: The eGFR is calculated using [...] tiplied by the estimated BMI. CARDIAC ENZYMES 1 2 3 Most recent to oldest [Reference Range]: 46 unit/L (05/27/16 1:03 PM) 48 unit/L (05/27/16 6:39 AM) 67 unit/L (05/27/16 1:08 AM) Total CK [12-191 unit/L] 1.0 ng/mL (05/27/16 1:08 AM) CK MB [0.5-3.6 ng/mL] 1.5 (05/27/16 1:08 AM) CK MB Index [0.0-2.5] <0.02 ng/mL (05/27/16 1:03 PM) <0.02 ng/mL (05/27/16 6:39 AM) <0.02 ng/mL (05/27/16 1:08 AM) Troponin-I [0.00-0.40 ng/mL] LIPIDS 1 2 3 Most recent to oldest [Reference Range]: 5.79 (05/27/16 6:39 AM) CHD Risk [3.90-5.80] 168 mg/dL (05/27/16 6:39 AM) Chol [<=199 mg/dL] 364 mg/dL *HI* (05/27/16 6:39 AM) Trig [<=149 mg/dL] 29 mg/dL *LOW* (05/27/16 6:39 AM) HDL [>=61 mg/dL] 66 mg/dL (05/27/16 6:39 AM) LDL (Calculated) [<=99 mg/dL] 73 *NA* (05/27/16 6:39 AM) VLDL URINE AND STOOL 1 2 3 Most recent to oldest [Reference Range]: Clear (05/27/16 1:15 AM) UA Turbidity [Clear] Ltyellow *NA* (05/27/16 1:15 AM) UA Color 6.0 (05/27/16 1:15 AM) UA pH [5.0-8.0] 1.010 (05/27/16 1:15 AM) UA Spec Grav [<=1.030] Negative mg/dL *NA* (05/27/16 1:15 AM) UA Glucose [Negative mg/dL] Negative (05/27/16 1:15 AM) UA Blood [Negative] Negative mg/dL *NA* (05/27/16 1:15 AM) UA Ketones [Negative mg/dL] Negative mg/dL (05/27/16 1:15 AM) UA Protein [Negative mg/dL] <=1.0 mg/dL *NA* (05/27/16 1:15 AM) UA Urobilinogen [0.1-1.0 mg/dL] Negative *NA* (05/27/16 1:15 AM) UA Bili [Negative] Trace *ABN* (05/27/16 1:15 AM) UA Leuk Est [Negative] Negative (05/27/16 1:15 AM) UA Nitrite [Negative] 2 /HPF (05/27/16 1:15 AM) UA WBC [0-5 /HPF] 1 /HPF (05/27/16 1:15 AM) UA RBC [0-2 /HPF] Occasional /LPF *NA* (05/27/16 1:15 AM) UA Sq Epi [Few /LPF] HEMATOLOGY 1 2 3 Most recent to oldest [Reference Range]: 7.1 K/CMM (05/27/16 1:08 AM) WBC [3.7-10.4 K/CMM] 4.14 M/CMM *LOW* (05/27/16 1:08 AM) RBC [4.20-5.40 M/CMM] 12.7 g/dL (05/27/16 1:08 AM) Hgb [12.0-16.0 g/dL] 37.1 % (05/27/16 1:08 AM) Hct [36.0-48.0 %] 89.6 fL (05/27/16 1:08 AM) MCV [80.0-98.0 fL] 30.6 pg (05/27/16 1:08 AM) MCH [27.0-31.0 pg] 34.1 g/dL (05/27/16 1:08 AM) MCHC [32.0-36.0 g/dL] 13.3 % (05/27/16 1:08 AM) RDW [11.5-14.5 %] 261 K/CMM (05/27/16 1:08 AM) Platelet [133-450 K/CMM] 7.1 fL *LOW* (05/27/16 1:08 AM) MPV [7.4-10.4 fL] 51.1 % (05/27/16 1:08 AM) Segs [45.0-75.0 %] 38.1 % (05/27/16 1:08 AM) Lymphocytes [20.0-40.0 %] 6.6 % (05/27/16 1:08 AM) Monocytes [2.0-12.0 %] 3.6 % (05/27/16 1:08 AM) Eosinophils [0.0-4.0 %] 0.6 % (05/27/16 1:08 AM) Basophils [0.0-1.0 %] 3.7 K/CMM (05/27/16 1:08 AM) Segs-Bands # [1.5-8.1 K/CMM] 2.7 K/CMM (05/27/16 1:08 AM) Lymphocytes # [1.0-5.5 K/CMM] 0.5 K/CMM (05/27/16 1:08 AM) Monocytes # [0.0-0.8 K/CMM] 0.3 K/CMM (05/27/16 1:08 AM) Eosinophils # [0.0-0.5 K/CMM] Immunizations Not Given Vaccine Date Status Refusal Reason pneumococcal 13-valent vaccine 05/27/16 Not Given Patient Refuses Procedures Procedure Date Related Diagnosis Body Site Cholecystectomy Social History Social History Type Response Substance Abuse Use: None. Alcohol Never Smoking Status Never smoker; Ready to change: No; Concerns about tobacco use in household: No; Exposure to Tobacco Smoke None; Cigarette Smoking Last 365 Days No; Reg Smoking Cessation Counseling No Assessment and Plan No data available for this section
--- OUTSIDE RECORDS SUMMARY | 2019-06-23 12:32 | XMS REPORT ---
Author Author [facility] Address Unknown Phone Unavailable Care Team Providers Care Surgical Rn Name Role Phone Unavailable Unavailable Payers Payer Name Policy Type Policy Number Effective Date Expiration Date Problems This patient has no known problems. Allergies, Adverse Reactions, Alerts Allergy Name Allergy Type Status Severity Reaction(s) Onset Date Inactive Date Treating Clinician Comments No Known Allergies DA Active U 2018-11-30 00:00:00 No Known Allergies DA Active U 2016-10-23 00:00:00 Medications This patient has no known medications. Results Test Description Test Time Test Comments Text Results Atomic Results Result Comments GLUBED 2019-01-30 16:01:00 GLUBED (test code=GLUBED) 110 mg/dL 74-106 Performed by certified sprayer operator at [facility] [id number] 11:43:00* Test Item Value Reference Range Comments GLUBED (test code=GLUBED) 150 mg/dL 74-106 Performed by certified sprayer operator at [facility] [id number] 07:53:00* Test Item Value Reference Range Comments GLUBED (test code=GLUBED) 172 mg/dL 74-106 Performed by certified sprayer operator at [facility] COMPREHENSIVE METABOLIC [id number] 06:26:00* Test Item Value Reference Range Comments SODIUM (test code=NA) 144 mmol/L 136-145 POTASSIUM (test code=K) 3.5 mmol/L 3.5-5.1 CHLORIDE (test code=CL) 110.0 mmol/L 98-107 CARBON DIOXIDE (test code=CO2) 26.0 mmol/L 21-32 ANION GAP (test code=GAP) 11.5 10-20 GLUCOSE (test code=GLU) 148 mg/dL 74-106 BLOOD UREA NITROGEN (test code=BUN) 3 mg/dL 7-18 GLOMERULAR FILTRATION RATE (test code=GFR) > 60 mL/min >=60 Estimated GFR by using Modified MDRD formula.Chronic kidney disease is defined as either kidney damageor GFR <60 mL/min/1.73 m2 for >3 months. CREATININE (test code=CREAT) 0.50 mg/dL 0.55-1.02 Note change in reference range due to change in reagent. BUN/CREATININE RATIO (test code=BUN/CREA) 6.0 10-20 TOTAL PROTEIN (test code=PROT) 5.6 gram/dL 6.4-8.2 ALBUMIN (test code=ALB) 2.4 g/dL 3.4-5.0 GLOBULIN (test code=GLOB) 3.2 gram/dL 2.7-4.2 ALBUMIN/GLOBULIN RATIO (test code=A/G) 0.8 0.75-1.50 CALCIUM (test code=CA) 8.3 mg/dL 8.5-10.1 BILIRUBIN TOTAL (test code=BILT) 0.20 mg/dL 0.0-1.0 SGOT/AST (test code=AST) 17 IUnit/L 15-37 SGPT/ALT (test code=ALT) 14 IUnit/L 12-78 ALKALINE PHOSPHATASE TOTAL (test code=ALKP) 46 IUnit/L 45-117 Note change in reference range due to change in reagent. COMPREHENSIVE METABOLIC [id number] 06:19:00* Test Item Value Reference Range Comments SODIUM (test code=NA) 144 mmol/L 136-145 POTASSIUM (test code=K) 3.5 mmol/L 3.5-5.1 CHLORIDE (test code=CL) 110.0 mmol/L 98-107 CARBON DIOXIDE (test code=CO2) mmol/L 21-32 ANION GAP (test code=GAP) 10-20 GLUCOSE (test code=GLU) mg/dL 74-106 BLOOD UREA NITROGEN (test code=BUN) mg/dL 7-18 GLOMERULAR FILTRATION RATE (test code=GFR) mL/min >=60 CREATININE (test code=CREAT) mg/dL 0.55-1.02 BUN/CREATININE RATIO (test code=BUN/CREA) 10-20 TOTAL PROTEIN (test code=PROT) gram/dL 6.4-8.2 ALBUMIN (test code=ALB) g/dL 3.4-5.0 GLOBULIN (test code=GLOB) gram/dL 2.7-4.2 ALBUMIN/GLOBULIN RATIO (test code=A/G) 0.75-1.50 CALCIUM (test code=CA) mg/dL 8.5-10.1 BILIRUBIN TOTAL (test code=BILT) mg/dL 0.0-1.0 SGOT/AST (test code=AST) IUnit/L 15-37 SGPT/ALT (test code=ALT) IUnit/L 12-78 ALKALINE PHOSPHATASE TOTAL (test code=ALKP) IUnit/L 45-117 CBC W/AUTO [id number] 06:01:00* Test Item Value Reference Range Comments WHITE BLOOD CELL (test code=WBC) 7.0 K/mm3 4.5-12.5 RED BLOOD CELL (test code=RBC) 3.28 mill/mm3 3.7-5.2 HEMOGLOBIN (test code=HGB) 9.1 gram/dL 11.5-15.5 HEMATOCRIT (test code=HCT) 29.9 % 36.0-46.0 MEAN CELL VOLUME (test code=MCV) 91.2 fL 80-98 MEAN CELL HGB (test code=MCH) 27.7 picogram 27.0-33.0 MEAN CELL HGB CONCETRATION (test code=MCHC) 30.4 gram/dL 33.0-36.0 RED CELL DISTRIBUTION WIDTH (test code=RDW) 14.7 % 11.6-16.2 RED CELL DISTRIBUTION WIDTH SD (test code=RDW-SD) 49.1 fL 37.0-51.0 PLATELET COUNT (test code=PLT) 158 K/mm3 150-450 MEAN PLATELET VOLUME (test code=MPV) 10.4 fL 6.7-11.0 NEUTROPHIL % (test code=NT%) 63.0 % 39.0-69.0 IMMATURE GRANULOCYTE % (test code=IG%) 0.4 % 0.0-5.0 LYMPHOCYTE % (test code=LY%) 24.6 % 25.0-55.0 MONOCYTE % (test code=MO%) 8.7 % 0.0-10.0 EOSINOPHIL % (test code=EO%) 3.0 % 0.0-5.0 BASOPHIL % (test code=BA%) 0.3 % 0.0-1.0 NUCLEATED RBC % (test code=NRBC%) 0.0 % 0-0 NEUTROPHIL # (test code=NT#) 4.42 K/mm3 1.8-7.7 IMMATURE GRANULOCYTE # (test code=IG#) 0.03 x10 3/uL 0-0.03 LYMPHOCYTE # (test code=LY#) 1.73 K/mm3 1.0-5.0 MONOCYTE # (test code=MO#) 0.61 K/mm3 0-0.8 EOSINOPHIL # (test code=EO#) 0.21 K/mm3 0.0-0.5 BASOPHIL # (test code=BA#) 0.02 K/mm3 0.0-0.2 NUCLEATED RBC # (test code=NRBC#) 0.00 K/mm3 0.0-0.1 [id number] 22:13:00* Test Item Value Reference Range Comments GLUBED (test code=GLUBED) 178 mg/dL 74-106 Performed by certified sprayer operator at [facility] [id number] 15:16:00* Test Item Value Reference Range Comments GLUBED (test code=GLUBED) 109 mg/dL 74-106 Performed by certified sprayer operator at [facility] [id number] 11:45:00* Test Item Value Reference Range Comments GLUBED (test code=GLUBED) 163 mg/dL 74-106 Performed by certified sprayer operator at [facility] [id number] 08:13:00* Test Item Value Reference Range Comments GLUBED (test code=GLUBED) 145 mg/dL 74-106 Performed by certified sprayer operator at [facility] [id number] 20:10:00* Test Item Value Reference Range Comments GLUBED (test code=GLUBED) 155 mg/dL 74-106 Performed by certified sprayer operator at [facility] [id number] 17:08:00* Test Item Value Reference Range Comments GLUBED (test code=GLUBED) 110 mg/dL 74-106 Performed by certified sprayer operator at [facility] [id number] 13:35:00* Test Item Value Reference Range Comments GLUBED (test code=GLUBED) 213 mg/dL 74-106 Performed by certified sprayer operator at [facility] [id number] 07:27:00* Test Item Value Reference Range Comments GLUBED (test code=GLUBED) 133 mg/dL 74-106 Performed by certified sprayer operator at [facility] COMPREHENSIVE METABOLIC [id number] 06:24:00* Test Item Value Reference Range Comments SODIUM (test code=NA) 140 mmol/L 136-145 POTASSIUM (test code=K) 3.4 mmol/L 3.5-5.1 CHLORIDE (test code=CL) 108.0 mmol/L 98-107 CARBON DIOXIDE (test code=CO2) 26.0 mmol/L 21-32 ANION GAP (test code=GAP) 9.4 10-20 GLUCOSE (test code=GLU) 142 mg/dL 74-106 BLOOD UREA NITROGEN (test code=BUN) 4 mg/dL 7-18 GLOMERULAR FILTRATION RATE (test code=GFR) > 60 mL/min >=60 Estimated GFR by using Modified MDRD formula.Chronic kidney disease is defined as either kidney damageor GFR <60 mL/min/1.73 m2 for >3 months. CREATININE (test code=CREAT) 0.50 mg/dL 0.55-1.02 Note change in reference range due to change in reagent. BUN/CREATININE RATIO (test code=BUN/CREA) 8.0 10-20 TOTAL PROTEIN (test code=PROT) 5.7 gram/dL 6.4-8.2 ALBUMIN (test code=ALB) 2.4 g/dL 3.4-5.0 GLOBULIN (test code=GLOB) 3.3 gram/dL 2.7-4.2 ALBUMIN/GLOBULIN RATIO (test code=A/G) 0.7 0.75-1.50 CALCIUM (test code=CA) 8.1 mg/dL 8.5-10.1 BILIRUBIN TOTAL (test code=BILT) 0.20 mg/dL 0.0-1.0 SGOT/AST (test code=AST) 11 IUnit/L 15-37 SGPT/ALT (test code=ALT) 15 IUnit/L 12-78 ALKALINE PHOSPHATASE TOTAL (test code=ALKP) 46 IUnit/L 45-117 Note change in reference range due to change in reagent. COMPREHENSIVE METABOLIC [id number] 06:19:00* Test Item Value Reference Range Comments SODIUM (test code=NA) 140 mmol/L 136-145 POTASSIUM (test code=K) 3.4 mmol/L 3.5-5.1 CHLORIDE (test code=CL) 108.0 mmol/L 98-107 CARBON DIOXIDE (test code=CO2) mmol/L 21-32 ANION GAP (test code=GAP) 10-20 GLUCOSE (test code=GLU) mg/dL 74-106 BLOOD UREA NITROGEN (test code=BUN) mg/dL 7-18 GLOMERULAR FILTRATION RATE (test code=GFR) mL/min >=60 CREATININE (test code=CREAT) mg/dL 0.55-1.02 BUN/CREATININE RATIO (test code=BUN/CREA) 10-20 TOTAL PROTEIN (test code=PROT) gram/dL 6.4-8.2 ALBUMIN (test code=ALB) g/dL 3.4-5.0 GLOBULIN (test code=GLOB) gram/dL 2.7-4.2 ALBUMIN/GLOBULIN RATIO (test code=A/G) 0.75-1.50 CALCIUM (test code=CA) mg/dL 8.5-10.1 BILIRUBIN TOTAL (test code=BILT) mg/dL 0.0-1.0 SGOT/AST (test code=AST) IUnit/L 15-37 SGPT/ALT (test code=ALT) IUnit/L 12-78 ALKALINE PHOSPHATASE TOTAL (test code=ALKP) IUnit/L 45-117 CBC W/AUTO [id number] 06:01:00* Test Item Value Reference Range Comments WHITE BLOOD CELL (test code=WBC) 8.2 K/mm3 4.5-12.5 RED BLOOD CELL (test code=RBC) 3.10 mill/mm3 3.7-5.2 HEMOGLOBIN (test code=HGB) 8.7 gram/dL 11.5-15.5 HEMATOCRIT (test code=HCT) 28.5 % 36.0-46.0 MEAN CELL VOLUME (test code=MCV) 91.9 fL 80-98 MEAN CELL HGB (test code=MCH) 28.1 picogram 27.0-33.0 MEAN CELL HGB CONCETRATION (test code=MCHC) 30.5 gram/dL 33.0-36.0 RED CELL DISTRIBUTION WIDTH (test code=RDW) 14.7 % 11.6-16.2 RED CELL DISTRIBUTION WIDTH SD (test code=RDW-SD) 49.1 fL 37.0-51.0 PLATELET COUNT (test code=PLT) 182 K/mm3 150-450 MEAN PLATELET VOLUME (test code=MPV) 9.6 fL 6.7-11.0 NEUTROPHIL % (test code=NT%) 74.9 % 39.0-69.0 IMMATURE GRANULOCYTE % (test code=IG%) 0.5 % 0.0-5.0 LYMPHOCYTE % (test code=LY%) 15.9 % 25.0-55.0 MONOCYTE % (test code=MO%) 7.2 % 0.0-10.0 EOSINOPHIL % (test code=EO%) 1.3 % 0.0-5.0 BASOPHIL % (test code=BA%) 0.2 % 0.0-1.0 NUCLEATED RBC % (test code=NRBC%) 0.0 % 0-0 NEUTROPHIL # (test code=NT#) 6.10 K/mm3 1.8-7.7 IMMATURE GRANULOCYTE # (test code=IG#) 0.04 x10 3/uL 0-0.03 LYMPHOCYTE # (test code=LY#) 1.30 K/mm3 1.0-5.0 MONOCYTE # (test code=MO#) 0.59 K/mm3 0-0.8 EOSINOPHIL # (test code=EO#) 0.11 K/mm3 0.0-0.5 BASOPHIL # (test code=BA#) 0.02 K/mm3 0.0-0.2 NUCLEATED RBC # (test code=NRBC#) 0.00 K/mm3 0.0-0.1 [id number] 04:29:00* Test Item Value Reference Range Comments GLUBED (test code=GLUBED) 134 mg/dL 74-106 Performed by certified sprayer operator at [facility] [id number] 20:38:00* Test Item Value Reference Range Comments GLUBED (test code=GLUBED) 146 mg/dL 74-106 Performed by certified sprayer operator at [facility] [id number] 17:14:00 RUN DATE: 01/27/19 [place] - Lab PAGE 1 RUN TIME: 1714 Specimen Inqui ry RUN USER: INTERFACE PATIENT: DEBRA TOWNSEND ACCT #: [id number] LOC: KAY U #: [id number] AGE/SX: 78/F ROOM: [facility] RE01/19/19SHARYN DR: Shayne Jones MD : 42 BED: A DIS: STATUS: ADM IN TLOC: SPEC #: [id number] RECD: 01/25/19 STATUS: SOUT REQ #: [id number] FER: 01/25/[address] [facility] [address]: David Razo MD ENTERED: 01/25/19 SP TYPE: COLON OTHR DR: Geneva Sol MD,Gilda Molina MD, MD, David MDORDERED: GROSS COPIES TO: Cristian Sol MD [address] [place] [address] Ike Allen MD [address] [place] [address] Gilda Nicholas MD [address] [place] [address] David Razo MD [address] [place] [address] PROCEDURES: JAQUELINE (01/27/19-1224) TISSUES: SIGMOID COLON CLINICAL HISTORY CO LLECTION DATE: 01/25/19 RECURRENT SIGMOID DIVERTICULITIS CONTINUED ON NEXT PAGE RUN DATE: 01/27/19 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 Both mucosal margins are stapled closed. The segment measures 13 cm in length with a circumference up to 4.0 cm. With the attached fatty tissue the segment of colon measures 8 cm in diameter. The sp ecimen is opened to reveal pink-holliday folded mucosa. The specimen is allowed to fix prior to sectioning. After the specimen is allowed to fix it is r eexamined. A moderate amount of adipose tissue is attached to the colon. No nodules, masses, or polyps are seen. Multiple diverticula are present within the colon segment and the wall is thickened measuring up to 0.6 cm in thicknes s. A 0.5 cm nodule is present in the adipose tissue. A 0.6 cm smooth nodule is present in the adipose tissue. On cut section it has a yellow appearance. Samples of the diverticula are submitted for microscopic evaluation in casset pamela (1A-1D). The nodule is submitted for microscopic evaluation in cassette (1 E). GROSS PERFORMED AT [facility] [address] [place] [address] (P)[phone] MICROSCOPIC All of the stains, including any controls performed, stain appropriately. MICROSCOPIC PERFORMED AT [facility] [address] [place] [address] (P)[phone] CONTINUED ON NEXT PAGE RUN D ATE: 01/27/19 [facility] DOSHI GE 3 RUN TIME: 1714 Specimen Inquiry RUN USER: INTERFACE SPEC #: [id number] PATIENT: DEBRA TOWNSEND #[id number] (Continued) PERFORMING SITE Diagnosis pe rformed at: [facility] [address] [facility] [place] [address] Signed SIGNATURE ON FILE Willian Bhandari MD 01/27/19 1714 END OF REPORT [id number] 16:36:00* Test Item Value Reference Range Comments GLUBED (test code=GLUBED) 146 mg/dL 74-106 Performed by certified sprayer operator at [facility] [id number] 12:53:00* Test Item Value Reference Range Comments GLUBED (test code=GLUBED) 158 mg/dL 74-106 Performed by certified sprayer operator at [facility] [id number] 09:04:00* Test Item Value Reference Range Comments GLUBED (test code=GLUBED) 116 mg/dL 74-106 Performed by certified sprayer operator at [facility] COMPREHENSIVE METABOLIC [id number] 06:42:00* Test Item Value Reference Range Comments SODIUM (test code=NA) 141 mmol/L 136-145 POTASSIUM (test code=K) 3.4 mmol/L 3.5-5.1 CHLORIDE (test code=CL) 109.0 mmol/L 98-107 CARBON DIOXIDE (test code=CO2) 26.0 mmol/L 21-32 ANION GAP (test code=GAP) 9.4 10-20 GLUCOSE (test code=GLU) 113 mg/dL 74-106 BLOOD UREA NITROGEN (test code=BUN) 4 mg/dL 7-18 GLOMERULAR FILTRATION RATE (test code=GFR) > 60 mL/min >=60 Estimated GFR by using Modified MDRD formula.Chronic kidney disease is defined as either kidney damageor GFR <60 mL/min/1.73 m2 for >3 months. CREATININE (test code=CREAT) 0.60 mg/dL 0.55-1.02 Note change in reference range due to change in reagent. BUN/CREATININE RATIO (test code=BUN/CREA) 6.7 10-20 TOTAL PROTEIN (test code=PROT) 6.1 gram/dL 6.4-8.2 ALBUMIN (test code=ALB) 2.5 g/dL 3.4-5.0 GLOBULIN (test code=GLOB) 3.6 gram/dL 2.7-4.2 ALBUMIN/GLOBULIN RATIO (test code=A/G) 0.7 0.75-1.50 CALCIUM (test code=CA) 8.4 mg/dL 8.5-10.1 BILIRUBIN TOTAL (test code=BILT) 0.40 mg/dL 0.0-1.0 SGOT/AST (test code=AST) 16 IUnit/L 15-37 SGPT/ALT (test code=ALT) 17 IUnit/L 12-78 ALKALINE PHOSPHATASE TOTAL (test code=ALKP) 52 IUnit/L 45-117 Note change in reference range due to change in reagent. COMPREHENSIVE METABOLIC [id number] 06:27:00* Test Item Value Reference Range Comments SODIUM (test code=NA) 141 mmol/L 136-145 POTASSIUM (test code=K) 3.4 mmol/L 3.5-5.1 CHLORIDE (test code=CL) 109.0 mmol/L 98-107 CARBON DIOXIDE (test code=CO2) mmol/L 21-32 ANION GAP (test code=GAP) 10-20 GLUCOSE (test code=GLU) mg/dL 74-106 BLOOD UREA NITROGEN (test code=BUN) mg/dL 7-18 GLOMERULAR FILTRATION RATE (test code=GFR) mL/min >=60 CREATININE (test code=CREAT) mg/dL 0.55-1.02 BUN/CREATININE RATIO (test code=BUN/CREA) 10-20 TOTAL PROTEIN (test code=PROT) gram/dL 6.4-8.2 ALBUMIN (test code=ALB) g/dL 3.4-5.0 GLOBULIN (test code=GLOB) gram/dL 2.7-4.2 ALBUMIN/GLOBULIN RATIO (test code=A/G) 0.75-1.50 CALCIUM (test code=CA) mg/dL 8.5-10.1 BILIRUBIN TOTAL (test code=BILT) mg/dL 0.0-1.0 SGOT/AST (test code=AST) IUnit/L 15-37 SGPT/ALT (test code=ALT) IUnit/L 12-78 ALKALINE PHOSPHATASE TOTAL (test code=ALKP) IUnit/L 45-117 CBC W/AUTO [id number] 06:00:00* Test Item Value Reference Range Comments WHITE BLOOD CELL (test code=WBC) 10.8 K/mm3 4.5-12.5 RED BLOOD CELL (test code=RBC) 3.01 mill/mm3 3.7-5.2 HEMOGLOBIN (test code=HGB) 8.7 gram/dL 11.5-15.5 HEMATOCRIT (test code=HCT) 27.5 % 36.0-46.0 MEAN CELL VOLUME (test code=MCV) 91.4 fL 80-98 MEAN CELL HGB (test code=MCH) 28.9 picogram 27.0-33.0 MEAN CELL HGB CONCETRATION (test code=MCHC) 31.6 gram/dL 33.0-36.0 RED CELL DISTRIBUTION WIDTH (test code=RDW) 14.9 % 11.6-16.2 RED CELL DISTRIBUTION WIDTH SD (test code=RDW-SD) 49.9 fL 37.0-51.0 PLATELET COUNT (test code=PLT) 168 K/mm3 150-450 MEAN PLATELET VOLUME (test code=MPV) 9.7 fL 6.7-11.0 NEUTROPHIL % (test code=NT%) 72.9 % 39.0-69.0 IMMATURE GRANULOCYTE % (test code=IG%) 0.4 % 0.0-5.0 LYMPHOCYTE % (test code=LY%) 20.2 % 25.0-55.0 MONOCYTE % (test code=MO%) 5.9 % 0.0-10.0 EOSINOPHIL % (test code=EO%) 0.4 % 0.0-5.0 BASOPHIL % (test code=BA%) 0.2 % 0.0-1.0 NUCLEATED RBC % (test code=NRBC%) 0.0 % 0-0 NEUTROPHIL # (test code=NT#) 7.86 K/mm3 1.8-7.7 IMMATURE GRANULOCYTE # (test code=IG#) 0.04 x10 3/uL 0-0.03 LYMPHOCYTE # (test code=LY#) 2.17 K/mm3 1.0-5.0 MONOCYTE # (test code=MO#) 0.63 K/mm3 0-0.8 EOSINOPHIL # (test code=EO#) 0.04 K/mm3 0.0-0.5 BASOPHIL # (test code=BA#) 0.02 K/mm3 0.0-0.2 NUCLEATED RBC # (test code=NRBC#) 0.00 K/mm3 0.0-0.1 MANUAL DIFF REQUIRED (test code=MDIFF) NO [id number] 04:09:00* Test Item Value Reference Range Comments GLUBED (test code=GLUBED) 121 mg/dL 74-106 Performed by certified sprayer operator at [facility] [id number] 21:56:00* Test Item Value Reference Range Comments GLUBED (test code=GLUBED) 110 mg/dL 74-106 Performed by certified sprayer operator at [facility] [id number] 20:06:00* Test Item Value Reference Range Comments GLUBED (test code=GLUBED) 123 mg/dL 74-106 Performed by certified sprayer operator at [facility] [id number] 16:45:00* Test Item Value Reference Range Comments GLUBED (test code=GLUBED) 144 mg/dL 74-106 Performed by certified sprayer operator at [facility] [id number] 12:29:00* Test Item Value Reference Range Comments GLUBED (test code=GLUBED) 172 mg/dL 74-106 Performed by certified sprayer operator at [facility] [id number] 08:23:00* Test Item Value Reference Range Comments GLUBED (test code=GLUBED) 153 mg/dL 74-106 Performed by certified sprayer operator at [facility] BASIC METABOLIC [id number] 05:36:00* Test Item Value Reference Range Comments SODIUM (test code=NA) 145 mmol/L 136-145 POTASSIUM (test code=K) 3.4 mmol/L 3.5-5.1 CHLORIDE (test code=CL) 114.0 mmol/L 98-107 CARBON DIOXIDE (test code=CO2) 25.0 mmol/L 21-32 ANION GAP (test code=GAP) 9.4 10-20 GLUCOSE (test code=GLU) 148 mg/dL 74-106 BLOOD UREA NITROGEN (test code=BUN) 4 mg/dL 7-18 GLOMERULAR FILTRATION RATE (test code=GFR) > 60 mL/min >=60 Estimated GFR by using Modified MDRD formula.Chronic kidney disease is defined as either kidney damageor GFR <60 mL/min/1.73 m2 for >3 months. CREATININE (test code=CREAT) 0.60 mg/dL 0.55-1.02 Note change in reference range due to change in reagent. BUN/CREATININE RATIO (test code=BUN/CREA) 6.7 10-20 CALCIUM (test code=CA) 8.3 mg/dL 8.5-10.1 BASIC METABOLIC [id number] 05:32:00* Test Item Value Reference Range Comments SODIUM (test code=NA) 145 mmol/L 136-145 POTASSIUM (test code=K) 3.4 mmol/L 3.5-5.1 CHLORIDE (test code=CL) 114.0 mmol/L 98-107 CARBON DIOXIDE (test code=CO2) mmol/L 21-32 ANION GAP (test code=GAP) 10-20 GLUCOSE (test code=GLU) mg/dL 74-106 BLOOD UREA NITROGEN (test code=BUN) mg/dL 7-18 GLOMERULAR FILTRATION RATE (test code=GFR) mL/min >=60 CREATININE (test code=CREAT) mg/dL 0.55-1.02 BUN/CREATININE RATIO (test code=BUN/CREA) 10-20 CALCIUM (test code=CA) mg/dL 8.5-10.1 CBC W/AUTO [id number] 05:22:00* Test Item Value Reference Range Comments WHITE BLOOD CELL (test code=WBC) 10.9 K/mm3 4.5-12.5 RED BLOOD CELL (test code=RBC) 3.39 mill/mm3 3.7-5.2 HEMOGLOBIN (test code=HGB) 9.6 gram/dL 11.5-15.5 HEMATOCRIT (test code=HCT) 30.7 % 36.0-46.0 MEAN CELL VOLUME (test code=MCV) 90.6 fL 80-98 MEAN CELL HGB (test code=MCH) 28.3 picogram 27.0-33.0 MEAN CELL HGB CONCETRATION (test code=MCHC) 31.3 gram/dL 33.0-36.0 RED CELL DISTRIBUTION WIDTH (test code=RDW) 15.1 % 11.6-16.2 RED CELL DISTRIBUTION WIDTH SD (test code=RDW-SD) 49.8 fL 37.0-51.0 PLATELET COUNT (test code=PLT) 203 K/mm3 150-450 MEAN PLATELET VOLUME (test code=MPV) 9.6 fL 6.7-11.0 NEUTROPHIL % (test code=NT%) 77.3 % 39.0-69.0 IMMATURE GRANULOCYTE % (test code=IG%) 0.4 % 0.0-5.0 LYMPHOCYTE % (test code=LY%) 15.6 % 25.0-55.0 MONOCYTE % (test code=MO%) 6.5 % 0.0-10.0 EOSINOPHIL % (test code=EO%) 0.1 % 0.0-5.0 BASOPHIL % (test code=BA%) 0.1 % 0.0-1.0 NUCLEATED RBC % (test code=NRBC%) 0.0 % 0-0 NEUTROPHIL # (test code=NT#) 8.43 K/mm3 1.8-7.7 IMMATURE GRANULOCYTE # (test code=IG#) 0.04 x10 3/uL 0-0.03 LYMPHOCYTE # (test code=LY#) 1.70 K/mm3 1.0-5.0 MONOCYTE # (test code=MO#) 0.71 K/mm3 0-0.8 EOSINOPHIL # (test code=EO#) 0.01 K/mm3 0.0-0.5 BASOPHIL # (test code=BA#) 0.01 K/mm3 0.0-0.2 NUCLEATED RBC # (test code=NRBC#) 0.00 K/mm3 0.0-0.1 [id number] 04:32:00* Test Item Value Reference Range Comments GLUBED (test code=GLUBED) 145 mg/dL 74-106 Performed by certified sprayer operator at [facility] [id number] 21:13:00* Test Item Value Reference Range Comments GLUBED (test code=GLUBED) 186 mg/dL 74-106 Performed by certified sprayer operator at [facility] [id number] 17:23:00* Test Item Value Reference Range Comments GLUBED (test code=GLUBED) 214 mg/dL 74-106 Performed by certified sprayer operator at [facility] [id number] 16:30:00* Test Item Value Reference Range Comments GLUBED (test code=GLUBED) 229 mg/dL 74-106 Performed by certified sprayer operator at [facility] [id number] 08:10:00* Test Item Value Reference Range Comments GLUBED (test code=GLUBED) 127 mg/dL 74-106 Performed by certified sprayer operator at [facility] [id number] 03:54:00* Test Item Value Reference Range Comments GLUBED (test code=GLUBED) 105 mg/dL 74-106 Performed by certified sprayer operator at [facility] [id number] 20:40:00* Test Item Value Reference Range Comments GLUBED (test code=GLUBED) 156 mg/dL 74-106 Performed by certified sprayer operator at [facility] [id number] 16:41:00* Test Item Value Reference Range Comments GLUBED (test code=GLUBED) 119 mg/dL 74-106 Performed by certified sprayer operator at [facility] [id number] 12:20:00* Test Item Value Reference Range Comments GLUBED (test code=GLUBED) 159 mg/dL 74-106 Performed by certified sprayer operator at [facility] [id number] 08:03:00* Test Item Value Reference Range Comments GLUBED (test code=GLUBED) 125 mg/dL 74-106 Performed by certified sprayer operator at [facility] COMPREHENSIVE METABOLIC [id number] 06:37:00* Test Item Value Reference Range Comments SODIUM (test code=NA) 142 mmol/L 136-145 POTASSIUM (test code=K) 3.4 mmol/L 3.5-5.1 CHLORIDE (test code=CL) 112.0 mmol/L 98-107 CARBON DIOXIDE (test code=CO2) 24.0 mmol/L 21-32 ANION GAP (test code=GAP) 9.4 10-20 GLUCOSE (test code=GLU) 124 mg/dL 74-106 BLOOD UREA NITROGEN (test code=BUN) 6 mg/dL 7-18 GLOMERULAR FILTRATION RATE (test code=GFR) > 60 mL/min >=60 Estimated GFR by using Modified MDRD formula.Chronic kidney disease is defined as either kidney damageor GFR <60 mL/min/1.73 m2 for >3 months. CREATININE (test code=CREAT) 0.60 mg/dL 0.55-1.02 Note change in reference range due to change in reagent. BUN/CREATININE RATIO (test code=BUN/CREA) 10.0 10-20 TOTAL PROTEIN (test code=PROT) 6.3 gram/dL 6.4-8.2 ALBUMIN (test code=ALB) 2.9 g/dL 3.4-5.0 GLOBULIN (test code=GLOB) 3.4 gram/dL 2.7-4.2 ALBUMIN/GLOBULIN RATIO (test code=A/G) 0.9 0.75-1.50 CALCIUM (test code=CA) 8.8 mg/dL 8.5-10.1 BILIRUBIN TOTAL (test code=BILT) 0.30 mg/dL 0.0-1.0 SGOT/AST (test code=AST) 17 IUnit/L 15-37 SGPT/ALT (test code=ALT) 25 IUnit/L 12-78 ALKALINE PHOSPHATASE TOTAL (test code=ALKP) 58 IUnit/L 45-117 Note change in reference range due to change in reagent. CBC W/AUTO [id number] 06:31:00* Test Item Value Reference Range Comments WHITE BLOOD CELL (test code=WBC) 8.3 K/mm3 4.5-12.5 RED BLOOD CELL (test code=RBC) 3.51 mill/mm3 3.7-5.2 HEMOGLOBIN (test code=HGB) 9.7 gram/dL 11.5-15.5 HEMATOCRIT (test code=HCT) 31.5 % 36.0-46.0 MEAN CELL VOLUME (test code=MCV) 89.7 fL 80-98 MEAN CELL HGB (test code=MCH) 27.6 picogram 27.0-33.0 MEAN CELL HGB CONCETRATION (test code=MCHC) 30.8 gram/dL 33.0-36.0 RED CELL DISTRIBUTION WIDTH (test code=RDW) 14.8 % 11.6-16.2 RED CELL DISTRIBUTION WIDTH SD (test code=RDW-SD) 47.8 fL 37.0-51.0 PLATELET COUNT (test code=PLT) 244 K/mm3 150-450 MEAN PLATELET VOLUME (test code=MPV) 9.2 fL 6.7-11.0 NEUTROPHIL % (test code=NT%) 63.0 % 39.0-69.0 IMMATURE GRANULOCYTE % (test code=IG%) 0.5 % 0.0-5.0 LYMPHOCYTE % (test code=LY%) 26.1 % 25.0-55.0 MONOCYTE % (test code=MO%) 5.9 % 0.0-10.0 EOSINOPHIL % (test code=EO%) 4.1 % 0.0-5.0 BASOPHIL % (test code=BA%) 0.4 % 0.0-1.0 NUCLEATED RBC % (test code=NRBC%) 0.0 % 0-0 NEUTROPHIL # (test code=NT#) 5.25 K/mm3 1.8-7.7 IMMATURE GRANULOCYTE # (test code=IG#) 0.04 x10 3/uL 0-0.03 LYMPHOCYTE # (test code=LY#) 2.17 K/mm3 1.0-5.0 MONOCYTE # (test code=MO#) 0.49 K/mm3 0-0.8 EOSINOPHIL # (test code=EO#) 0.34 K/mm3 0.0-0.5 BASOPHIL # (test code=BA#) 0.03 K/mm3 0.0-0.2 NUCLEATED RBC # (test code=NRBC#) 0.00 K/mm3 0.0-0.1 COMPREHENSIVE METABOLIC [id number] 06:31:00* Test Item Value Reference Range Comments SODIUM (test code=NA) 142 mmol/L 136-145 POTASSIUM (test code=K) 3.4 mmol/L 3.5-5.1 CHLORIDE (test code=CL) 112.0 mmol/L 98-107 CARBON DIOXIDE (test code=CO2) mmol/L 21-32 ANION GAP (test code=GAP) 10-20 GLUCOSE (test code=GLU) mg/dL 74-106 BLOOD UREA NITROGEN (test code=BUN) mg/dL 7-18 GLOMERULAR FILTRATION RATE (test code=GFR) mL/min >=60 CREATININE (test code=CREAT) mg/dL 0.55-1.02 BUN/CREATININE RATIO (test code=BUN/CREA) 10-20 TOTAL PROTEIN (test code=PROT) gram/dL 6.4-8.2 ALBUMIN (test code=ALB) g/dL 3.4-5.0 GLOBULIN (test code=GLOB) gram/dL 2.7-4.2 ALBUMIN/GLOBULIN RATIO (test code=A/G) 0.75-1.50 CALCIUM (test code=CA) mg/dL 8.5-10.1 BILIRUBIN TOTAL (test code=BILT) mg/dL 0.0-1.0 SGOT/AST (test code=AST) IUnit/L 15-37 SGPT/ALT (test code=ALT) IUnit/L 12-78 ALKALINE PHOSPHATASE TOTAL (test code=ALKP) IUnit/L 45-117 [id number] 20:29:00* Test Item Value Reference Range Comments GLUBED (test code=GLUBED) 132 mg/dL 74-106 Performed by certified sprayer operator at [facility] [id number] 15:49:00* Test Item Value Reference Range Comments GLUBED (test code=GLUBED) 109 mg/dL 74-106 Performed by certified sprayer operator at [facility] [id number] 15:19:00* Test Item Value Reference Range Comments GLUBED (test code=GLUBED) 136 mg/dL 74-106 Performed by certified sprayer operator at [facility] [id number] 12:48:00* Test Item Value Reference Range Comments GLUBED (test code=GLUBED) 191 mg/dL 74-106 Performed by certified sprayer operator at [facility] COMPREHENSIVE METABOLIC [id number] 07:30:00* Test Item Value Reference Range Comments SODIUM (test code=NA) 144 mmol/L 136-145 POTASSIUM (test code=K) 3.6 mmol/L 3.5-5.1 CHLORIDE (test code=CL) 113.0 mmol/L 98-107 CARBON DIOXIDE (test code=CO2) 25.0 mmol/L 21-32 ANION GAP (test code=GAP) 9.6 10-20 GLUCOSE (test code=GLU) 123 mg/dL 74-106 BLOOD UREA NITROGEN (test code=BUN) 7 mg/dL 7-18 GLOMERULAR FILTRATION RATE (test code=GFR) > 60 mL/min >=60 Estimated GFR by using Modified MDRD formula.Chronic kidney disease is defined as either kidney damageor GFR <60 mL/min/1.73 m2 for >3 months. CREATININE (test code=CREAT) 0.60 mg/dL 0.55-1.02 Note change in reference range due to change in reagent. BUN/CREATININE RATIO (test code=BUN/CREA) 11.7 10-20 TOTAL PROTEIN (test code=PROT) 6.2 gram/dL 6.4-8.2 ALBUMIN (test code=ALB) 2.7 g/dL 3.4-5.0 GLOBULIN (test code=GLOB) 3.5 gram/dL 2.7-4.2 ALBUMIN/GLOBULIN RATIO (test code=A/G) 0.8 0.75-1.50 CALCIUM (test code=CA) 8.6 mg/dL 8.5-10.1 BILIRUBIN TOTAL (test code=BILT) 0.30 mg/dL 0.0-1.0 SGOT/AST (test code=AST) 19 IUnit/L 15-37 SGPT/ALT (test code=ALT) 26 IUnit/L 12-78 ALKALINE PHOSPHATASE TOTAL (test code=ALKP) 58 IUnit/L 45-117 Note change in reference range due to change in reagent. CBC W/AUTO [id number] 07:22:00* Test Item Value Reference Range Comments WHITE BLOOD CELL (test code=WBC) 7.7 K/mm3 4.5-12.5 RED BLOOD CELL (test code=RBC) 3.34 mill/mm3 3.7-5.2 HEMOGLOBIN (test code=HGB) 9.6 gram/dL 11.5-15.5 HEMATOCRIT (test code=HCT) 30.1 % 36.0-46.0 MEAN CELL VOLUME (test code=MCV) 90.1 fL 80-98 MEAN CELL HGB (test code=MCH) 28.7 picogram 27.0-33.0 MEAN CELL HGB CONCETRATION (test code=MCHC) 31.9 gram/dL 33.0-36.0 RED CELL DISTRIBUTION WIDTH (test code=RDW) 14.8 % 11.6-16.2 RED CELL DISTRIBUTION WIDTH SD (test code=RDW-SD) 49.1 fL 37.0-51.0 PLATELET COUNT (test code=PLT) 233 K/mm3 150-450 MEAN PLATELET VOLUME (test code=MPV) 9.3 fL 6.7-11.0 NEUTROPHIL % (test code=NT%) 59.9 % 39.0-69.0 IMMATURE GRANULOCYTE % (test code=IG%) 0.4 % 0.0-5.0 LYMPHOCYTE % (test code=LY%) 28.7 % 25.0-55.0 MONOCYTE % (test code=MO%) 6.7 % 0.0-10.0 EOSINOPHIL % (test code=EO%) 3.9 % 0.0-5.0 BASOPHIL % (test code=BA%) 0.4 % 0.0-1.0 NUCLEATED RBC % (test code=NRBC%) 0.0 % 0-0 NEUTROPHIL # (test code=NT#) 4.63 K/mm3 1.8-7.7 IMMATURE GRANULOCYTE # (test code=IG#) 0.03 x10 3/uL 0-0.03 LYMPHOCYTE # (test code=LY#) 2.22 K/mm3 1.0-5.0 MONOCYTE # (test code=MO#) 0.52 K/mm3 0-0.8 EOSINOPHIL # (test code=EO#) 0.30 K/mm3 0.0-0.5 BASOPHIL # (test code=BA#) 0.03 K/mm3 0.0-0.2 NUCLEATED RBC # (test code=NRBC#) 0.00 K/mm3 0.0-0.1 MANUAL DIFF REQUIRED (test code=MDIFF) NO [id number] 03:53:00* Test Item Value Reference Range Comments GLUBED (test code=GLUBED) 120 mg/dL 74-106 Performed by certified sprayer operator at [facility] [id number] 02:35:00* Test Item Value Reference Range Comments GLUBED (test code=GLUBED) 119 mg/dL 74-106 Performed by certified sprayer operator at [facility] [id number] 17:13:00* Test Item Value Reference Range Comments GLUBED (test code=GLUBED) 126 mg/dL 74-106 Performed by certified sprayer operator at [facility] [id number] 12:43:00* Test Item Value Reference Range Comments GLUBED (test code=GLUBED) 128 mg/dL 74-106 Performed by certified sprayer operator at [facility] COMPREHENSIVE METABOLIC [id number] 08:26:00* Test Item Value Reference Range Comments SODIUM (test code=NA) 142 mmol/L 136-145 POTASSIUM (test code=K) 4.0 mmol/L 3.5-5.1 CHLORIDE (test code=CL) 112.0 mmol/L 98-107 CARBON DIOXIDE (test code=CO2) 24.0 mmol/L 21-32 ANION GAP (test code=GAP) 10.0 10-20 GLUCOSE (test code=GLU) 140 mg/dL 74-106 BLOOD UREA NITROGEN (test code=BUN) 6 mg/dL 7-18 GLOMERULAR FILTRATION RATE (test code=GFR) > 60 mL/min >=60 Estimated GFR by using Modified MDRD formula.Chronic kidney disease is defined as either kidney damageor GFR <60 mL/min/1.73 m2 for >3 months. CREATININE (test code=CREAT) 0.70 mg/dL 0.55-1.02 Note change in reference range due to change in reagent. BUN/CREATININE RATIO (test code=BUN/CREA) 8.6 10-20 TOTAL PROTEIN (test code=PROT) 6.8 gram/dL 6.4-8.2 ALBUMIN (test code=ALB) 3.0 g/dL 3.4-5.0 GLOBULIN (test code=GLOB) 3.8 gram/dL 2.7-4.2 ALBUMIN/GLOBULIN RATIO (test code=A/G) 0.8 0.75-1.50 CALCIUM (test code=CA) 9.0 mg/dL 8.5-10.1 BILIRUBIN TOTAL (test code=BILT) 0.20 mg/dL 0.0-1.0 SGOT/AST (test code=AST) 17 IUnit/L 15-37 SGPT/ALT (test code=ALT) 33 IUnit/L 12-78 ALKALINE PHOSPHATASE TOTAL (test code=ALKP) 71 IUnit/L 45-117 Note change in reference range due to change in reagent. CBC W/AUTO [id number] 08:25:00* Test Item Value Reference Range Comments WHITE BLOOD CELL (test code=WBC) 6.7 K/mm3 4.5-12.5 RED BLOOD CELL (test code=RBC) 3.61 mill/mm3 3.7-5.2 HEMOGLOBIN (test code=HGB) 10.0 gram/dL 11.5-15.5 HEMATOCRIT (test code=HCT) 33.3 % 36.0-46.0 MEAN CELL VOLUME (test code=MCV) 92.2 fL 80-98 MEAN CELL HGB (test code=MCH) 27.7 picogram 27.0-33.0 MEAN CELL HGB CONCETRATION (test code=MCHC) 30.0 gram/dL 33.0-36.0 RED CELL DISTRIBUTION WIDTH (test code=RDW) 15.0 % 11.6-16.2 RED CELL DISTRIBUTION WIDTH SD (test code=RDW-SD) 49.8 fL 37.0-51.0 PLATELET COUNT (test code=PLT) 263 K/mm3 150-450 MEAN PLATELET VOLUME (test code=MPV) 9.7 fL 6.7-11.0 NEUTROPHIL % (test code=NT%) 48.4 % 39.0-69.0 IMMATURE GRANULOCYTE % (test code=IG%) 0.4 % 0.0-5.0 LYMPHOCYTE % (test code=LY%) 40.2 % 25.0-55.0 MONOCYTE % (test code=MO%) 6.4 % 0.0-10.0 EOSINOPHIL % (test code=EO%) 4.0 % 0.0-5.0 BASOPHIL % (test code=BA%) 0.6 % 0.0-1.0 NUCLEATED RBC % (test code=NRBC%) 0.0 % 0-0 NEUTROPHIL # (test code=NT#) 3.24 K/mm3 1.8-7.7 IMMATURE GRANULOCYTE # (test code=IG#) 0.03 x10 3/uL 0-0.03 LYMPHOCYTE # (test code=LY#) 2.70 K/mm3 1.0-5.0 MONOCYTE # (test code=MO#) 0.43 K/mm3 0-0.8 EOSINOPHIL # (test code=EO#) 0.27 K/mm3 0.0-0.5 BASOPHIL # (test code=BA#) 0.04 K/mm3 0.0-0.2 NUCLEATED RBC # (test code=NRBC#) 0.00 K/mm3 0.0-0.1 MANUAL DIFF REQUIRED (test code=MDIFF) NO COMPREHENSIVE METABOLIC [id number] 08:21:00* Test Item Value Reference Range Comments SODIUM (test code=NA) 142 mmol/L 136-145 POTASSIUM (test code=K) 4.0 mmol/L 3.5-5.1 CHLORIDE (test code=CL) 112.0 mmol/L 98-107 CARBON DIOXIDE (test code=CO2) mmol/L 21-32 ANION GAP (test code=GAP) 10-20 GLUCOSE (test code=GLU) mg/dL 74-106 BLOOD UREA NITROGEN (test code=BUN) mg/dL 7-18 GLOMERULAR FILTRATION RATE (test code=GFR) mL/min >=60 CREATININE (test code=CREAT) mg/dL 0.55-1.02 BUN/CREATININE RATIO (test code=BUN/CREA) 10-20 TOTAL PROTEIN (test code=PROT) gram/dL 6.4-8.2 ALBUMIN (test code=ALB) g/dL 3.4-5.0 GLOBULIN (test code=GLOB) gram/dL 2.7-4.2 ALBUMIN/GLOBULIN RATIO (test code=A/G) 0.75-1.50 CALCIUM (test code=CA) mg/dL 8.5-10.1 BILIRUBIN TOTAL (test code=BILT) mg/dL 0.0-1.0 SGOT/AST (test code=AST) IUnit/L 15-37 SGPT/ALT (test code=ALT) IUnit/L 12-78 ALKALINE PHOSPHATASE TOTAL (test code=ALKP) IUnit/L 45-117 [id number] 08:17:00* Test Item Value Reference Range Comments GLUBED (test code=GLUBED) 136 mg/dL 74-106 Performed by certified sprayer operator at [facility] [id number] 04:36:00* Test Item Value Reference Range Comments GLUBED (test code=GLUBED) 137 mg/dL 74-106 Performed by certified sprayer operator at [facility] [id number] 20:06:00* Test Item Value Reference Range Comments GLUBED (test code=GLUBED) 144 mg/dL 74-106 Performed by certified sprayer operator at [facility] [id number] 18:42:00* Test Item Value Reference Range Comments GLUBED (test code=GLUBED) 80 mg/dL 74-106 Performed by certified sprayer operator at [facility] [id number] 12:23:00* Test Item Value Reference Range Comments GLUBED (test code=GLUBED) 110 mg/dL 74-106 Performed by certified sprayer operator at [facility] [id number] 09:01:00* Test Item Value Reference Range Comments GLUBED (test code=GLUBED) 208 mg/dL 74-106 Performed by certified sprayer operator at [facility] COMPREHENSIVE METABOLIC [id number] 05:18:00* Test Item Value Reference Range Comments SODIUM (test code=NA) 142 mmol/L 136-145 POTASSIUM (test code=K) 3.4 mmol/L 3.5-5.1 CHLORIDE (test code=CL) 111.0 mmol/L 98-107 CARBON DIOXIDE (test code=CO2) 25.0 mmol/L 21-32 ANION GAP (test code=GAP) 9.4 10-20 GLUCOSE (test code=GLU) 135 mg/dL 74-106 BLOOD UREA NITROGEN (test code=BUN) 8 mg/dL 7-18 GLOMERULAR FILTRATION RATE (test code=GFR) > 60 mL/min >=60 Estimated GFR by using Modified MDRD formula.Chronic kidney disease is defined as either kidney damageor GFR <60 mL/min/1.73 m2 for >3 months. CREATININE (test code=CREAT) 0.70 mg/dL 0.55-1.02 Note change in reference range due to change in reagent. BUN/CREATININE RATIO (test code=BUN/CREA) 11.4 10-20 TOTAL PROTEIN (test code=PROT) 6.5 gram/dL 6.4-8.2 ALBUMIN (test code=ALB) 2.9 g/dL 3.4-5.0 GLOBULIN (test code=GLOB) 3.6 gram/dL 2.7-4.2 ALBUMIN/GLOBULIN RATIO (test code=A/G) 0.8 0.75-1.50 CALCIUM (test code=CA) 8.4 mg/dL 8.5-10.1 BILIRUBIN TOTAL (test code=BILT) 0.20 mg/dL 0.0-1.0 SGOT/AST (test code=AST) 21 IUnit/L 15-37 SGPT/ALT (test code=ALT) 40 IUnit/L 12-78 ALKALINE PHOSPHATASE TOTAL (test code=ALKP) 72 IUnit/L 45-117 Note change in reference range due to change in reagent. CBC W/AUTO [id number] 04:34:00* Test Item Value Reference Range Comments WHITE BLOOD CELL (test code=WBC) 6.9 K/mm3 4.5-12.5 RED BLOOD CELL (test code=RBC) 3.38 mill/mm3 3.7-5.2 HEMOGLOBIN (test code=HGB) 9.7 gram/dL 11.5-15.5 HEMATOCRIT (test code=HCT) 30.7 % 36.0-46.0 MEAN CELL VOLUME (test code=MCV) 90.8 fL 80-98 MEAN CELL HGB (test code=MCH) 28.7 picogram 27.0-33.0 MEAN CELL HGB CONCETRATION (test code=MCHC) 31.6 gram/dL 33.0-36.0 RED CELL DISTRIBUTION WIDTH (test code=RDW) 14.8 % 11.6-16.2 RED CELL DISTRIBUTION WIDTH SD (test code=RDW-SD) 49.1 fL 37.0-51.0 PLATELET COUNT (test code=PLT) 239 K/mm3 150-450 MEAN PLATELET VOLUME (test code=MPV) 9.2 fL 6.7-11.0 NEUTROPHIL % (test code=NT%) 54.7 % 39.0-69.0 IMMATURE GRANULOCYTE % (test code=IG%) 0.3 % 0.0-5.0 LYMPHOCYTE % (test code=LY%) 33.9 % 25.0-55.0 MONOCYTE % (test code=MO%) 7.9 % 0.0-10.0 EOSINOPHIL % (test code=EO%) 2.8 % 0.0-5.0 BASOPHIL % (test code=BA%) 0.4 % 0.0-1.0 NUCLEATED RBC % (test code=NRBC%) 0.0 % 0-0 NEUTROPHIL # (test code=NT#) 3.76 K/mm3 1.8-7.7 IMMATURE GRANULOCYTE # (test code=IG#) 0.02 x10 3/uL 0-0.03 LYMPHOCYTE # (test code=LY#) 2.33 K/mm3 1.0-5.0 MONOCYTE # (test code=MO#) 0.54 K/mm3 0-0.8 EOSINOPHIL # (test code=EO#) 0.19 K/mm3 0.0-0.5 BASOPHIL # (test code=BA#) 0.03 K/mm3 0.0-0.2 NUCLEATED RBC # (test code=NRBC#) 0.00 K/mm3 0.0-0.1 [id number] 04:08:00* Test Item Value Reference Range Comments GLUBED (test code=GLUBED) 140 mg/dL 74-106 Performed by certified sprayer operator at [facility] [id number] 20:21:00* Test Item Value Reference Range Comments GLUBED (test code=GLUBED) 159 mg/dL 74-106 Performed by certified sprayer operator at [facility] [id number] 16:52:00* Test Item Value Reference Range Comments GLUBED (test code=GLUBED) 131 mg/dL 74-106 Performed by certified sprayer operator at [facility] [id number] 12:03:00* Test Item Value Reference Range Comments GLUBED (test code=GLUBED) 205 mg/dL 74-106 Performed by certified sprayer operator at [facility] COMPREHENSIVE METABOLIC [id number] 06:06:00* Test Item Value Reference Range Comments SODIUM (test code=NA) 141 mmol/L 136-145 POTASSIUM (test code=K) 3.8 mmol/L 3.5-5.1 CHLORIDE (test code=CL) 107.0 mmol/L 98-107 CARBON DIOXIDE (test code=CO2) 27.0 mmol/L 21-32 ANION GAP (test code=GAP) 10.8 10-20 GLUCOSE (test code=GLU) 133 mg/dL 74-106 BLOOD UREA NITROGEN (test code=BUN) 8 mg/dL 7-18 GLOMERULAR FILTRATION RATE (test code=GFR) > 60 mL/min >=60 Estimated GFR by using Modified MDRD formula.Chronic kidney disease is defined as either kidney damageor GFR <60 mL/min/1.73 m2 for >3 months. CREATININE (test code=CREAT) 0.60 mg/dL 0.55-1.02 Note change in reference range due to change in reagent. BUN/CREATININE RATIO (test code=BUN/CREA) 13.3 10-20 TOTAL PROTEIN (test code=PROT) 6.4 gram/dL 6.4-8.2 ALBUMIN (test code=ALB) 3.0 g/dL 3.4-5.0 GLOBULIN (test code=GLOB) 3.4 gram/dL 2.7-4.2 ALBUMIN/GLOBULIN RATIO (test code=A/G) 0.9 0.75-1.50 CALCIUM (test code=CA) 8.8 mg/dL 8.5-10.1 BILIRUBIN TOTAL (test code=BILT) 0.30 mg/dL 0.0-1.0 SGOT/AST (test code=AST) 36 IUnit/L 15-37 SGPT/ALT (test code=ALT) 55 IUnit/L 12-78 ALKALINE PHOSPHATASE TOTAL (test code=ALKP) 87 IUnit/L 45-117 Note change in reference range due to change in reagent. COMPREHENSIVE METABOLIC [id number] 05:52:00* Test Item Value Reference Range Comments SODIUM (test code=NA) 141 mmol/L 136-145 POTASSIUM (test code=K) 3.8 mmol/L 3.5-5.1 CHLORIDE (test code=CL) 107.0 mmol/L 98-107 CARBON DIOXIDE (test code=CO2) mmol/L 21-32 ANION GAP (test code=GAP) 10-20 GLUCOSE (test code=GLU) mg/dL 74-106 BLOOD UREA NITROGEN (test code=BUN) mg/dL 7-18 GLOMERULAR FILTRATION RATE (test code=GFR) mL/min >=60 CREATININE (test code=CREAT) mg/dL 0.55-1.02 BUN/CREATININE RATIO (test code=BUN/CREA) 10-20 TOTAL PROTEIN (test code=PROT) gram/dL 6.4-8.2 ALBUMIN (test code=ALB) g/dL 3.4-5.0 GLOBULIN (test code=GLOB) gram/dL 2.7-4.2 ALBUMIN/GLOBULIN RATIO (test code=A/G) 0.75-1.50 CALCIUM (test code=CA) mg/dL 8.5-10.1 BILIRUBIN TOTAL (test code=BILT) mg/dL 0.0-1.0 SGOT/AST (test code=AST) IUnit/L 15-37 SGPT/ALT (test code=ALT) IUnit/L 12-78 ALKALINE PHOSPHATASE TOTAL (test code=ALKP) IUnit/L 45-117 CBC W/AUTO [id number] 05:38:00* Test Item Value Reference Range Comments WHITE BLOOD CELL (test code=WBC) 7.6 K/mm3 4.5-12.5 RED BLOOD CELL (test code=RBC) 3.54 mill/mm3 3.7-5.2 HEMOGLOBIN (test code=HGB) 10.0 gram/dL 11.5-15.5 HEMATOCRIT (test code=HCT) 31.7 % 36.0-46.0 MEAN CELL VOLUME (test code=MCV) 89.5 fL 80-98 MEAN CELL HGB (test code=MCH) 28.2 picogram 27.0-33.0 MEAN CELL HGB CONCETRATION (test code=MCHC) 31.5 gram/dL 33.0-36.0 RED CELL DISTRIBUTION WIDTH (test code=RDW) 14.9 % 11.6-16.2 RED CELL DISTRIBUTION WIDTH SD (test code=RDW-SD) 48.4 fL 37.0-51.0 PLATELET COUNT (test code=PLT) 253 K/mm3 150-450 MEAN PLATELET VOLUME (test code=MPV) 9.2 fL 6.7-11.0 NEUTROPHIL % (test code=NT%) 65.0 % 39.0-69.0 IMMATURE GRANULOCYTE % (test code=IG%) 0.3 % 0.0-5.0 LYMPHOCYTE % (test code=LY%) 27.0 % 25.0-55.0 MONOCYTE % (test code=MO%) 5.8 % 0.0-10.0 EOSINOPHIL % (test code=EO%) 1.6 % 0.0-5.0 BASOPHIL % (test code=BA%) 0.3 % 0.0-1.0 NUCLEATED RBC % (test code=NRBC%) 0.0 % 0-0 NEUTROPHIL # (test code=NT#) 4.97 K/mm3 1.8-7.7 IMMATURE GRANULOCYTE # (test code=IG#) 0.02 x10 3/uL 0-0.03 LYMPHOCYTE # (test code=LY#) 2.06 K/mm3 1.0-5.0 MONOCYTE # (test code=MO#) 0.44 K/mm3 0-0.8 EOSINOPHIL # (test code=EO#) 0.12 K/mm3 0.0-0.5 BASOPHIL # (test code=BA#) 0.02 K/mm3 0.0-0.2 NUCLEATED RBC # (test code=NRBC#) 0.00 K/mm3 0.0-0.1 [id number] 22:40:00* Test Item Value Reference Range Comments GLUBED (test code=GLUBED) 162 mg/dL 74-106 Performed by certified sprayer operator at [facility] [id number] 21:27:00* Test Item Value Reference Range Comments GLUBED (test code=GLUBED) 146 mg/dL 74-106 Performed by certified sprayer operator at [facility] [id number] 20:28:00* Test Item Value Reference Range Comments GLUBED (test code=GLUBED) 142 mg/dL 74-106 Performed by certified sprayer operator at [facility] [id number] 17:34:00* Test Item Value Reference Range Comments GLUBED (test code=GLUBED) 172 mg/dL 74-106 Performed by certified sprayer operator at [facility] [id number] 12:35:00* Test Item Value Reference Range Comments GLUBED (test code=GLUBED) 193 mg/dL 74-106 Performed by certified sprayer operator at [facility] [id number] 11:02:00* Test Item Value Reference Range Comments GLUBED (test code=GLUBED) 210 mg/dL 74-106 Performed by certified sprayer operator at [facility] URINALYSIS [id number] 03:32:00* Test Item Value Reference Range Comments UA COLOR (test code=COLU) ORANGE YELLOW UA APPEARANCE (test code=APPU) CLEAR UA GLUCOSE DIPSTICK (test code=DGLUU) TRACE mg/dL NEGATIVE UA BILIRUBIN DIPSTICK (test code=BILU) NEGATIVE NEGATIVE UA KETONE DIPSTICK (test code=KETU) NEGATIVE mg/dL NEGATIVE UA SPECIFIC GRAVITY (test code=SGU) 1.015 1.001-1.035 UA BLOOD DIPSTICK (test code=BRAVO) NEGATIVE NEGATIVE UA PH DIPSTICK (test code=RADHA) 5.5 5.0-8.0 UA PROTEIN DIPSTICK (test code=PROU) TRACE (15) mg/dL Neg-15 UA UROBILINIOGEN DIPSTICK (test code=URO) INTERFERING SUBST. mg/dL 0.0-0.2 UA NITRITE DIPSTICK (test code=DOMINIK) INTERFERING SUBST. NEGATIVE UA LEUKOCYTE ESTERASE W REFLEX (test code=LEUUR) TRACE NEGATIVE UA WBC (test code=WBCU) 3-5 per HPF 0-5 IN SOME URINARY TRACT INFECTIONS THERE MAY NOT BE ENOUGHWBCs IN THE URINE TO TRIGGER AN AUTOMATIC (REFLEX) URINECULTURE. A SEPERATE ORDER FOR URINE CULTURE IS RECOMMENDEDIF THERE IS STRONG SUPPORT FOR A URINARY TRACT INFECTIONCLINICALLY. UA RBC (test code=RBCU) 0-3 per HPF 0-5 UA EPITHELIAL CELLS (test code=EPIU) Few (2-5/hpf) per HPF Few UA BACTERIA (test code=BACU) TRACE per HPF NONE UA MUCUS (test code=MUCU) FEW per LPF NONE-FEW Urine Source? Clean CatchURINALYSIS [id number] 03:32:00* Test Item Value Reference Range Comments UA COLOR (test code=COLU) ORANGE YELLOW UA APPEARANCE (test code=APPU) SLIGHTLY HAZY CLEAR UA GLUCOSE DIPSTICK (test code=DGLUU) TRACE mg/dL NEGATIVE UA BILIRUBIN DIPSTICK (test code=BILU) NEGATIVE NEGATIVE UA KETONE DIPSTICK (test code=KETU) NEGATIVE mg/dL NEGATIVE UA SPECIFIC GRAVITY (test code=SGU) 1.015 1.001-1.035 UA BLOOD DIPSTICK (test code=BRAVO) NEGATIVE NEGATIVE UA PH DIPSTICK (test code=RADHA) 5.5 5.0-8.0 UA PROTEIN DIPSTICK (test code=PROU) TRACE (15) mg/dL Neg-15 UA UROBILINIOGEN DIPSTICK (test code=URO) INTERFERING SUBST. mg/dL 0.0-0.2 UA NITRITE DIPSTICK (test code=DOMINIK) INTERFERING SUBST. NEGATIVE UA LEUKOCYTE ESTERASE W REFLEX (test code=LEUUR) TRACE NEGATIVE UA WBC (test code=WBCU) 3-5 per HPF 0-5 IN SOME URINARY TRACT INFECTIONS THERE MAY NOT BE ENOUGHWBCs IN THE URINE TO TRIGGER AN AUTOMATIC (REFLEX) URINECULTURE. A SEPERATE ORDER FOR URINE CULTURE IS RECOMMENDEDIF THERE IS STRONG SUPPORT FOR A URINARY TRACT INFECTIONCLINICALLY. UA RBC (test code=RBCU) 0-3 per HPF 0-5 UA EPITHELIAL CELLS (test code=EPIU) Few (2-5/hpf) per HPF Few UA BACTERIA (test code=BACU) TRACE per HPF NONE UA MUCUS (test code=MUCU) FEW per LPF NONE-FEW Urine Source? Clean Catch- CT ABD PELVIS [id number] 03:16:00 Name: DEBRA TOWNSEND [facility] : 1940 Age/S: 78 / [facility] [address] [facility] [id number] Loc: [place] [id number] Phys: Johanna Hardin MD Acct: [id number] Di s Date: Status: REG ER PHONE #: Exam Date: 01/19/2019 0240 FAX #: [phone] Reason: lower abd pain EXAMS: CPT CODE: [id number] CT ABD PELVIS W/CONT [id number] EXAM: CT ABDOMEN AND PELV IS WITH IV CONTRAST Location code: R16 HISTORY: Fe male, 78 years of age with lower abdominal pain TECHNIQUE: Contrast - Nonionic IV contrast was given. No GI contrast was given. Port al venous phase: Abdomen and pelvis Delayed phase: Abdomen and pelvis Reconstructions: Coronal and sagittal One or more of the follow ing dose reduction techniques were used: Automated exposure control; adjus tment of the mA and/or kV according to the patient size; and/or use of ite rative reconstruction technique. COMPARISON: Previous CT abdomen a nd pelvis without contrast 11/29/2018 FINDINGS: Statements: E xam quality is acceptable. Lower thorax: 5 mm calcified granuloma seen in right lower lobe. Hepatobiliary: Liver is diffusely fatty infiltrated. No hepatic mass or enlargement. Gallbladder is absent. No caitlin iary dilation. Pancreas: Normal. Spleen: Normal. Adrenals: Normal. Genitourinary: Mild multifocal corti angelo scarring seen in both kidneys. No solid renal mass, obvious renal ston e or hydronephrosis. Ureters are unremarkable. . The bladder is contracted but wall appears mildly thickened. The visualized reproductive organs are unremarkable. Gastrointestinal: Wall thickening and pericolic str anding seen in the proximal sigmoid colon associated with numerous diverti cula and consistent with acute diverticulitis. No well-defined drainable pericolic abscess. No pneumatosis intestinalis. No other focal bowel wall thickening or para anterior inflammation. The appendix is normal. No bowel distention to suggest obstruction. Small hiatal hernia is present. PAGE 1 Signed Report (RON NUED) Name: DEBRA TOWNSEND [facility] : 1940 Age/S: 78 / F [address] [facility] Unit #: [id number] Loc: MIC[place]EL [place] [address] Phys: Qi aguilarRylee MD Acct: [id number] Dis Date: Status: REG ER PHON E #: [phone] Exam Date: 01/19/2019 0240 FAX #: [phone] Reason: lower abd pain EXAMS : CPT CODE: [id number] CT ABD PELVIS W/CONT [id number] <Continued> Vascular: Atherosclerotic calcifications are seen within the aorta and branch vessels. No aneurysm or dissection. Lymphatics: No en larged lymph nodes by CT size criteria. Bones/Soft Tissues: No acu te osseous findings. Old compression deformity again noted at T11. No vent ral hernias. Peritoneum/Other: No free intraperitoneal air. No tawana e intraperitoneal fluid. IMPRESSION: 1. Acute si gmoid diverticulitis. 2. No abscess, free fluid, or free air. 3. Normal appendix. 4. Small hiatal hernia. 5. Urinary bladder wall appears thickened but this has been present on prior studies. Please c orrelate for chronic cystitis. at 0316 Reported and signed by: Vanessa Batista MD CC: Gilda Nicholas MD Technologist:GEORGE TAYLOR CTDI: DLP: Trnscb Date/Time: 01/19/2019 (315) [email or web address] Orig Print D/T: S: 01/19/2019 (0319) CTDI: DLP: PAGE 2 Signed Report URINALYSIS COMPLETE 2019-01-19 03:11:00* Test Item Value Reference Range Comments UA COLOR (test code=COLU) ORANGE YELLOW UA APPEARANCE (test code=APPU) CLEAR UA GLUCOSE DIPSTICK (test code=DGLUU) TRACE mg/dL NEGATIVE UA BILIRUBIN DIPSTICK (test code=BILU) NEGATIVE NEGATIVE UA KETONE DIPSTICK (test code=KETU) NEGATIVE mg/dL NEGATIVE UA SPECIFIC GRAVITY (test code=SGU) 1.015 1.001-1.035 UA BLOOD DIPSTICK (test code=BRAVO) NEGATIVE NEGATIVE UA PH DIPSTICK (test code=RADHA) 5.5 5.0-8.0 UA PROTEIN DIPSTICK (test code=PROU) TRACE (15) mg/dL Neg-15 UA UROBILINIOGEN DIPSTICK (test code=URO) INTERFERING SUBST. mg/dL 0.0-0.2 UA NITRITE DIPSTICK (test code=DOMINIK) INTERFERING SUBST. NEGATIVE UA LEUKOCYTE ESTERASE W REFLEX (test code=LEUUR) TRACE NEGATIVE UA WBC (test code=WBCU) per HPF 0-5 UA RBC (test code=RBCU) per HPF 0-5 UA EPITHELIAL CELLS (test code=EPIU) per HPF Few UA BACTERIA (test code=BACU) per HPF NONE Urine Source? Clean CatchCBC W/O [id number] 01:10:00* Test Item Value Reference Range Comments WHITE BLOOD CELL (test code=WBC) 12.7 K/mm3 4.5-12.5 RED BLOOD CELL (test code=RBC) 3.97 mill/mm3 3.7-5.2 HEMOGLOBIN (test code=HGB) 11.1 gram/dL 11.5-15.5 HEMATOCRIT (test code=HCT) 37.9 % 36.0-46.0 MEAN CELL VOLUME (test code=MCV) 95.5 fL 80-98 MEAN CELL HGB (test code=MCH) 28.0 picogram 27.0-33.0 MEAN CELL HGB CONCETRATION (test code=MCHC) 29.3 gram/dL 33.0-36.0 RED CELL DISTRIBUTION WIDTH (test code=RDW) 14.9 % 11.6-16.2 PLATELET COUNT (test code=PLT) 236 K/mm3 150-450 MEAN PLATELET VOLUME (test code=MPV) 10.0 fL 6.7-11.0 CBC W/O [id number] 01:06:00* Test Item Value Reference Range Comments WHITE BLOOD CELL (test code=WBC) K/mm3 4.5-12.5 RED BLOOD CELL (test code=RBC) mill/mm3 3.7-5.2 HEMOGLOBIN (test code=HGB) gram/dL 11.5-15.5 HEMATOCRIT (test code=HCT) 37.9 % 36.0-46.0 MEAN CELL VOLUME (test code=MCV) fL 80-98 MEAN CELL HGB (test code=MCH) picogram 27.0-33.0 MEAN CELL HGB CONCETRATION (test code=MCHC) gram/dL 33.0-36.0 RED CELL DISTRIBUTION WIDTH (test code=RDW) % 11.6-16.2 PLATELET COUNT (test code=PLT) K/mm3 150-450 MEAN PLATELET VOLUME (test code=MPV) fL 6.7-11.0 BASIC METABOLIC [id number] 00:44:00* Test Item Value Reference Range Comments SODIUM (test code=NA) 134 mmol/L 136-145 POTASSIUM (test code=K) 3.8 mmol/L 3.5-5.1 CHLORIDE (test code=CL) 105.0 mmol/L 98-107 CARBON DIOXIDE (test code=CO2) 21.0 mmol/L 21-32 ANION GAP (test code=GAP) 11.8 10-20 GLUCOSE (test code=GLU) 163 mg/dL 74-106 BLOOD UREA NITROGEN (test code=BUN) 17 mg/dL 7-18 GLOMERULAR FILTRATION RATE (test code=GFR) > 60 mL/min >=60 Estimated GFR by using Modified MDRD formula.Chronic kidney disease is defined as either kidney damageor GFR <60 mL/min/1.73 m2 for >3 months. CREATININE (test code=CREAT) 0.80 mg/dL 0.55-1.02 Note change in reference range due to change in reagent. BUN/CREATININE RATIO (test code=BUN/CREA) 21.3 10-20 CALCIUM (test code=CA) 9.1 mg/dL 8.5-10.1 HEPATIC FUNCTION [id number] 00:44:00* Test Item Value Reference Range Comments TOTAL PROTEIN (test code=PROT) 7.7 gram/dL 6.4-8.2 ALBUMIN (test code=ALB) 3.3 g/dL 3.4-5.0 GLOBULIN (test code=GLOB) 4.4 gram/dL 2.7-4.2 ALBUMIN/GLOBULIN RATIO (test code=A/G) 0.8 0.75-1.50 BILIRUBIN TOTAL (test code=BILT) 0.20 mg/dL 0.0-1.0 BILIRUBIN DIRECT (test code=BILD) < 0.05 mg/dL 0.0-0.20 SGOT/AST (test code=AST) 15 IUnit/L 15-37 SGPT/ALT (test code=ALT) 24 IUnit/L 12-78 ALKALINE PHOSPHATASE TOTAL (test code=ALKP) 70 IUnit/L 45-117 Note change in reference range due to change in reagent. [id number] 00:44:00* Test Item Value Reference Range Comments LIPASE (test code=LIP) 141 U/L 73.0-393.0 BASIC METABOLIC [id number] 00:38:00* Test Item Value Reference Range Comments SODIUM (test code=NA) 134 mmol/L 136-145 POTASSIUM (test code=K) 3.8 mmol/L 3.5-5.1 CHLORIDE (test code=CL) 105.0 mmol/L 98-107 CARBON DIOXIDE (test code=CO2) mmol/L 21-32 ANION GAP (test code=GAP) 10-20 GLUCOSE (test code=GLU) mg/dL 74-106 BLOOD UREA NITROGEN (test code=BUN) mg/dL 7-18 GLOMERULAR FILTRATION RATE (test code=GFR) mL/min >=60 CREATININE (test code=CREAT) mg/dL 0.55-1.02 BUN/CREATININE RATIO (test code=BUN/CREA) 10-20 CALCIUM (test code=CA) mg/dL 8.5-10.1 HEPATIC FUNCTION [id number] 00:38:00* Test Item Value Reference Range Comments TOTAL PROTEIN (test code=PROT) gram/dL 6.4-8.2 ALBUMIN (test code=ALB) g/dL 3.4-5.0 GLOBULIN (test code=GLOB) gram/dL 2.7-4.2 ALBUMIN/GLOBULIN RATIO (test code=A/G) 0.75-1.50 BILIRUBIN TOTAL (test code=BILT) mg/dL 0.0-1.0 BILIRUBIN DIRECT (test code=BILD) mg/dL 0.0-0.20 SGOT/AST (test code=AST) IUnit/L 15-37 SGPT/ALT (test code=ALT) IUnit/L 12-78 ALKALINE PHOSPHATASE TOTAL (test code=ALKP) IUnit/L 45-117 [id number] 00:38:00* Test Item Value Reference Range Comments LIPASE (test code=LIP) U/L 73.0-393.0 [id number] 08:23:00* Test Item Value Reference Range Comments GLUBED (test code=GLUBED) 131 mg/dL 74-106 Performed by certified sprayer operator at [facility] CBC W/AUTO [id number] 06:22:00* Test Item Value Reference Range Comments WHITE BLOOD CELL (test code=WBC) 6.9 K/mm3 4.5-12.5 RED BLOOD CELL (test code=RBC) 3.35 mill/mm3 3.7-5.2 HEMOGLOBIN (test code=HGB) 9.0 gram/dL 11.5-15.5 HEMATOCRIT (test code=HCT) 28.9 % 36.0-46.0 MEAN CELL VOLUME (test code=MCV) 86.3 fL 80-98 MEAN CELL HGB (test code=MCH) 26.9 picogram 27.0-33.0 MEAN CELL HGB CONCETRATION (test code=MCHC) 31.1 gram/dL 33.0-36.0 RED CELL DISTRIBUTION WIDTH (test code=RDW) 20.8 % 11.6-16.2 RED CELL DISTRIBUTION WIDTH SD (test code=RDW-SD) 66.0 fL 37.0-51.0 PLATELET COUNT (test code=PLT) 231 K/mm3 150-450 RESULT VERIFIED BY REPEAT ANALYSIS MEAN PLATELET VOLUME (test code=MPV) 9.4 fL 6.7-11.0 NEUTROPHIL % (test code=NT%) 44.7 % 39.0-69.0 IMMATURE GRANULOCYTE % (test code=IG%) 0.3 % 0.0-5.0 LYMPHOCYTE % (test code=LY%) 43.1 % 25.0-55.0 MONOCYTE % (test code=MO%) 6.8 % 0.0-10.0 EOSINOPHIL % (test code=EO%) 4.5 % 0.0-5.0 BASOPHIL % (test code=BA%) 0.6 % 0.0-1.0 NUCLEATED RBC % (test code=NRBC%) 0.0 % 0-0 NEUTROPHIL # (test code=NT#) 3.08 K/mm3 1.8-7.7 IMMATURE GRANULOCYTE # (test code=IG#) 0.02 x10 3/uL 0-0.03 LYMPHOCYTE # (test code=LY#) 2.97 K/mm3 1.0-5.0 MONOCYTE # (test code=MO#) 0.47 K/mm3 0-0.8 EOSINOPHIL # (test code=EO#) 0.31 K/mm3 0.0-0.5 BASOPHIL # (test code=BA#) 0.04 K/mm3 0.0-0.2 NUCLEATED RBC # (test code=NRBC#) 0.00 K/mm3 0.0-0.1 MANUAL DIFF REQUIRED (test code=MDIFF) NO, ONLY SCAN NEEDED DIFFERENTIAL [id number] 06:22:00* Test Item Value Reference Range Comments STAIN ACCEPTABILITY (test code=STN ACCEPTABLE) STAIN ACCEPTABLE POLYCHROMASIA (test code=POLC) 1+ POIKILOCYTOSIS (test code=POIK) 1+ ANISOCYTOSIS (test code=ANISO) 1+ MICROCYTOSIS (test code=MICR) 1+ PLATELET ESTIMATE (test code=PLTEST) ADEQUATE PLATELET MORPHOLOGY (test code=PLTMORPH) NORMAL [id number] 06:19:00* Test Item Value Reference Range Comments GLUBED (test code=GLUBED) 135 mg/dL 74-106 Performed by certified sprayer operator at [facility] COMPREHENSIVE METABOLIC [id number] 06:15:00* Test Item Value Reference Range Comments SODIUM (test code=NA) 142 mmol/L 136-145 POTASSIUM (test code=K) 3.5 mmol/L 3.5-5.1 CHLORIDE (test code=CL) 110.0 mmol/L 98-107 CARBON DIOXIDE (test code=CO2) 25.0 mmol/L 21-32 ANION GAP (test code=GAP) 10.5 10-20 GLUCOSE (test code=GLU) 121 mg/dL 74-106 BLOOD UREA NITROGEN (test code=BUN) 8 mg/dL 7-18 GLOMERULAR FILTRATION RATE (test code=GFR) > 60 mL/min >=60 Estimated GFR by using Modified MDRD formula.Chronic kidney disease is defined as either kidney damageor GFR <60 mL/min/1.73 m2 for >3 months. CREATININE (test code=CREAT) 0.70 mg/dL 0.55-1.02 Note change in reference range due to change in reagent. BUN/CREATININE RATIO (test code=BUN/CREA) 11.9 10-20 TOTAL PROTEIN (test code=PROT) 6.3 gram/dL 6.4-8.2 ALBUMIN (test code=ALB) 2.9 g/dL 3.4-5.0 GLOBULIN (test code=GLOB) 3.4 gram/dL 2.7-4.2 ALBUMIN/GLOBULIN RATIO (test code=A/G) 0.9 0.75-1.50 CALCIUM (test code=CA) 8.6 mg/dL 8.5-10.1 BILIRUBIN TOTAL (test code=BILT) 0.30 mg/dL 0.0-1.0 SGOT/AST (test code=AST) 22 IUnit/L 15-37 SGPT/ALT (test code=ALT) 31 IUnit/L 12-78 ALKALINE PHOSPHATASE TOTAL (test code=ALKP) 56 IUnit/L 45-117 Note change in reference range due to change in reagent. COMPREHENSIVE METABOLIC [id number] 06:07:00* Test Item Value Reference Range Comments SODIUM (test code=NA) 142 mmol/L 136-145 POTASSIUM (test code=K) 3.5 mmol/L 3.5-5.1 CHLORIDE (test code=CL) 110.0 mmol/L 98-107 CARBON DIOXIDE (test code=CO2) mmol/L 21-32 ANION GAP (test code=GAP) 10-20 GLUCOSE (test code=GLU) mg/dL 74-106 BLOOD UREA NITROGEN (test code=BUN) mg/dL 7-18 GLOMERULAR FILTRATION RATE (test code=GFR) mL/min >=60 CREATININE (test code=CREAT) mg/dL 0.55-1.02 BUN/CREATININE RATIO (test code=BUN/CREA) 10-20 TOTAL PROTEIN (test code=PROT) gram/dL 6.4-8.2 ALBUMIN (test code=ALB) g/dL 3.4-5.0 GLOBULIN (test code=GLOB) gram/dL 2.7-4.2 ALBUMIN/GLOBULIN RATIO (test code=A/G) 0.75-1.50 CALCIUM (test code=CA) mg/dL 8.5-10.1 BILIRUBIN TOTAL (test code=BILT) mg/dL 0.0-1.0 SGOT/AST (test code=AST) IUnit/L 15-37 SGPT/ALT (test code=ALT) IUnit/L 12-78 ALKALINE PHOSPHATASE TOTAL (test code=ALKP) IUnit/L 45-117 CBC W/AUTO [id number] 06:01:00* Test Item Value Reference Range Comments WHITE BLOOD CELL (test code=WBC) 6.9 K/mm3 4.5-12.5 RED BLOOD CELL (test code=RBC) 3.35 mill/mm3 3.7-5.2 HEMOGLOBIN (test code=HGB) 9.0 gram/dL 11.5-15.5 HEMATOCRIT (test code=HCT) 28.9 % 36.0-46.0 MEAN CELL VOLUME (test code=MCV) 86.3 fL 80-98 MEAN CELL HGB (test code=MCH) 26.9 picogram 27.0-33.0 MEAN CELL HGB CONCETRATION (test code=MCHC) 31.1 gram/dL 33.0-36.0 RED CELL DISTRIBUTION WIDTH (test code=RDW) 20.8 % 11.6-16.2 RED CELL DISTRIBUTION WIDTH SD (test code=RDW-SD) 66.0 fL 37.0-51.0 PLATELET COUNT (test code=PLT) 231 K/mm3 150-450 RESULT VERIFIED BY REPEAT ANALYSIS MEAN PLATELET VOLUME (test code=MPV) 9.4 fL 6.7-11.0 NEUTROPHIL % (test code=NT%) 44.7 % 39.0-69.0 IMMATURE GRANULOCYTE % (test code=IG%) 0.3 % 0.0-5.0 LYMPHOCYTE % (test code=LY%) 43.1 % 25.0-55.0 MONOCYTE % (test code=MO%) 6.8 % 0.0-10.0 EOSINOPHIL % (test code=EO%) 4.5 % 0.0-5.0 BASOPHIL % (test code=BA%) 0.6 % 0.0-1.0 NUCLEATED RBC % (test code=NRBC%) 0.0 % 0-0 NEUTROPHIL # (test code=NT#) 3.08 K/mm3 1.8-7.7 IMMATURE GRANULOCYTE # (test code=IG#) 0.02 x10 3/uL 0-0.03 LYMPHOCYTE # (test code=LY#) 2.97 K/mm3 1.0-5.0 MONOCYTE # (test code=MO#) 0.47 K/mm3 0-0.8 EOSINOPHIL # (test code=EO#) 0.31 K/mm3 0.0-0.5 BASOPHIL # (test code=BA#) 0.04 K/mm3 0.0-0.2 NUCLEATED RBC # (test code=NRBC#) 0.00 K/mm3 0.0-0.1 MANUAL DIFF REQUIRED (test code=MDIFF) NO, ONLY SCAN NEEDED DIFFERENTIAL [id number] 06:01:00* Test Item Value Reference Range Comments STAIN ACCEPTABILITY (test code=STN ACCEPTABLE) MORPHOLOGY COMMENT (test code=MOC) PLATELET ESTIMATE (test code=PLTEST) PLATELET MORPHOLOGY (test code=PLTMORPH) CBC W/AUTO [id number] 05:59:00* Test Item Value Reference Range Comments WHITE BLOOD CELL (test code=WBC) 6.9 K/mm3 4.5-12.5 RED BLOOD CELL (test code=RBC) 3.35 mill/mm3 3.7-5.2 HEMOGLOBIN (test code=HGB) 9.0 gram/dL 11.5-15.5 HEMATOCRIT (test code=HCT) 28.9 % 36.0-46.0 MEAN CELL VOLUME (test code=MCV) 86.3 fL 80-98 MEAN CELL HGB (test code=MCH) 26.9 picogram 27.0-33.0 MEAN CELL HGB CONCETRATION (test code=MCHC) 31.1 gram/dL 33.0-36.0 RED CELL DISTRIBUTION WIDTH (test code=RDW) 20.8 % 11.6-16.2 RED CELL DISTRIBUTION WIDTH SD (test code=RDW-SD) 66.0 fL 37.0-51.0 PLATELET COUNT (test code=PLT) 231 K/mm3 150-450 RESULT VERIFIED BY REPEAT ANALYSIS MEAN PLATELET VOLUME (test code=MPV) 9.4 fL 6.7-11.0 NEUTROPHIL % (test code=NT%) 44.7 % 39.0-69.0 IMMATURE GRANULOCYTE % (test code=IG%) 0.3 % 0.0-5.0 LYMPHOCYTE % (test code=LY%) 43.1 % 25.0-55.0 MONOCYTE % (test code=MO%) 6.8 % 0.0-10.0 EOSINOPHIL % (test code=EO%) 4.5 % 0.0-5.0 BASOPHIL % (test code=BA%) 0.6 % 0.0-1.0 NUCLEATED RBC % (test code=NRBC%) 0.0 % 0-0 NEUTROPHIL # (test code=NT#) 3.08 K/mm3 1.8-7.7 IMMATURE GRANULOCYTE # (test code=IG#) 0.02 x10 3/uL 0-0.03 LYMPHOCYTE # (test code=LY#) 2.97 K/mm3 1.0-5.0 MONOCYTE # (test code=MO#) 0.47 K/mm3 0-0.8 EOSINOPHIL # (test code=EO#) 0.31 K/mm3 0.0-0.5 BASOPHIL # (test code=BA#) 0.04 K/mm3 0.0-0.2 NUCLEATED RBC # (test code=NRBC#) 0.00 K/mm3 0.0-0.1 MANUAL DIFF REQUIRED (test code=MDIFF) NO, ONLY SCAN NEEDED DIFFERENTIAL [id number] 05:59:00* Test Item Value Reference Range Comments STAIN ACCEPTABILITY (test code=STN ACCEPTABLE) CABOT RINGS (test code=CAB) MORPHOLOGY COMMENT (test code=MOC) PLATELET ESTIMATE (test code=PLTEST) PLATELET MORPHOLOGY (test code=PLTMORPH) CBC W/AUTO [id number] 05:59:00* Test Item Value Reference Range Comments WHITE BLOOD CELL (test code=WBC) 6.9 K/mm3 4.5-12.5 RED BLOOD CELL (test code=RBC) 3.35 mill/mm3 3.7-5.2 HEMOGLOBIN (test code=HGB) 9.0 gram/dL 11.5-15.5 HEMATOCRIT (test code=HCT) 28.9 % 36.0-46.0 MEAN CELL VOLUME (test code=MCV) 86.3 fL 80-98 MEAN CELL HGB (test code=MCH) 26.9 picogram 27.0-33.0 MEAN CELL HGB CONCETRATION (test code=MCHC) 31.1 gram/dL 33.0-36.0 RED CELL DISTRIBUTION WIDTH (test code=RDW) 20.8 % 11.6-16.2 RED CELL DISTRIBUTION WIDTH SD (test code=RDW-SD) 66.0 fL 37.0-51.0 PLATELET COUNT (test code=PLT) 231 K/mm3 150-450 RESULT VERIFIED BY REPEAT ANALYSIS MEAN PLATELET VOLUME (test code=MPV) 9.4 fL 6.7-11.0 NEUTROPHIL % (test code=NT%) 44.7 % 39.0-69.0 IMMATURE GRANULOCYTE % (test code=IG%) 0.3 % 0.0-5.0 LYMPHOCYTE % (test code=LY%) 43.1 % 25.0-55.0 MONOCYTE % (test code=MO%) 6.8 % 0.0-10.0 EOSINOPHIL % (test code=EO%) 4.5 % 0.0-5.0 BASOPHIL % (test code=BA%) 0.6 % 0.0-1.0 NUCLEATED RBC % (test code=NRBC%) 0.0 % 0-0 NEUTROPHIL # (test code=NT#) 3.08 K/mm3 1.8-7.7 IMMATURE GRANULOCYTE # (test code=IG#) 0.02 x10 3/uL 0-0.03 LYMPHOCYTE # (test code=LY#) 2.97 K/mm3 1.0-5.0 MONOCYTE # (test code=MO#) 0.47 K/mm3 0-0.8 EOSINOPHIL # (test code=EO#) 0.31 K/mm3 0.0-0.5 BASOPHIL # (test code=BA#) 0.04 K/mm3 0.0-0.2 NUCLEATED RBC # (test code=NRBC#) 0.00 K/mm3 0.0-0.1 MANUAL DIFF REQUIRED (test code=MDIFF) NO, ONLY SCAN NEEDED DIFFERENTIAL [id number] 05:59:00* Test Item Value Reference Range Comments STAIN ACCEPTABILITY (test code=STN ACCEPTABLE) MORPHOLOGY COMMENT (test code=MOC) PLATELET ESTIMATE (test code=PLTEST) PLATELET MORPHOLOGY (test code=PLTMORPH) CBC W/AUTO [id number] 05:59:00* Test Item Value Reference Range Comments WHITE BLOOD CELL (test code=WBC) 6.9 K/mm3 4.5-12.5 RED BLOOD CELL (test code=RBC) 3.35 mill/mm3 3.7-5.2 HEMOGLOBIN (test code=HGB) 9.0 gram/dL 11.5-15.5 HEMATOCRIT (test code=HCT) 28.9 % 36.0-46.0 MEAN CELL VOLUME (test code=MCV) 86.3 fL 80-98 MEAN CELL HGB (test code=MCH) 26.9 picogram 27.0-33.0 MEAN CELL HGB CONCETRATION (test code=MCHC) 31.1 gram/dL 33.0-36.0 RED CELL DISTRIBUTION WIDTH (test code=RDW) 20.8 % 11.6-16.2 RED CELL DISTRIBUTION WIDTH SD (test code=RDW-SD) 66.0 fL 37.0-51.0 PLATELET COUNT (test code=PLT) 231 K/mm3 150-450 RESULT VERIFIED BY REPEAT ANALYSIS MEAN PLATELET VOLUME (test code=MPV) 9.4 fL 6.7-11.0 NEUTROPHIL % (test code=NT%) 44.7 % 39.0-69.0 IMMATURE GRANULOCYTE % (test code=IG%) 0.3 % 0.0-5.0 LYMPHOCYTE % (test code=LY%) 43.1 % 25.0-55.0 MONOCYTE % (test code=MO%) 6.8 % 0.0-10.0 EOSINOPHIL % (test code=EO%) 4.5 % 0.0-5.0 BASOPHIL % (test code=BA%) 0.6 % 0.0-1.0 NUCLEATED RBC % (test code=NRBC%) 0.0 % 0-0 NEUTROPHIL # (test code=NT#) 3.08 K/mm3 1.8-7.7 IMMATURE GRANULOCYTE # (test code=IG#) 0.02 x10 3/uL 0-0.03 LYMPHOCYTE # (test code=LY#) 2.97 K/mm3 1.0-5.0 MONOCYTE # (test code=MO#) 0.47 K/mm3 0-0.8 EOSINOPHIL # (test code=EO#) 0.31 K/mm3 0.0-0.5 BASOPHIL # (test code=BA#) 0.04 K/mm3 0.0-0.2 NUCLEATED RBC # (test code=NRBC#) 0.00 K/mm3 0.0-0.1 MANUAL DIFF REQUIRED (test code=MDIFF) NO, ONLY SCAN NEEDED DIFFERENTIAL [id number] 05:59:00* Test Item Value Reference Range Comments STAIN ACCEPTABILITY (test code=STN ACCEPTABLE) CABOT RINGS (test code=CAB) MORPHOLOGY COMMENT (test code=MOC) PLATELET ESTIMATE (test code=PLTEST) PLATELET MORPHOLOGY (test code=PLTMORPH) [id number] 01:39:00* Test Item Value Reference Range Comments GLUBED (test code=GLUBED) 112 mg/dL 74-106 Performed by certified sprayer operator at [facility] [id number] 20:38:00* Test Item Value Reference Range Comments GLUBED (test code=GLUBED) 104 mg/dL 74-106 [facility] [id number] 16:09:00* Test Item Value Reference Range Comments GLUBED (test code=GLUBED) 154 mg/dL 74-106 Performed by certified sprayer operator at [facility] [id number] 11:55:00* Test Item Value Reference Range Comments GLUBED (test code=GLUBED) 131 mg/dL 74-106 Performed by certified sprayer operator at [facility] [id number] 10:06:00* Test Item Value Reference Range Comments GLUBED (test code=GLUBED) 138 mg/dL 74-106 Performed by certified sprayer operator at [facility] COMPREHENSIVE METABOLIC [id number] 09:17:00* Test Item Value Reference Range Comments SODIUM (test code=NA) 142 mmol/L 136-145 POTASSIUM (test code=K) 3.7 mmol/L 3.5-5.1 CHLORIDE (test code=CL) 110.0 mmol/L 98-107 CARBON DIOXIDE (test code=CO2) 28.0 mmol/L 21-32 ANION GAP (test code=GAP) 7.7 10-20 GLUCOSE (test code=GLU) 129 mg/dL 74-106 BLOOD UREA NITROGEN (test code=BUN) 9 mg/dL 7-18 GLOMERULAR FILTRATION RATE (test code=GFR) > 60 mL/min >=60 Estimated GFR by using Modified MDRD formula.Chronic kidney disease is defined as either kidney damageor GFR <60 mL/min/1.73 m2 for >3 months. CREATININE (test code=CREAT) 0.60 mg/dL 0.55-1.02 Note change in reference range due to change in reagent. BUN/CREATININE RATIO (test code=BUN/CREA) 14.6 10-20 TOTAL PROTEIN (test code=PROT) 6.0 gram/dL 6.4-8.2 ALBUMIN (test code=ALB) 2.7 g/dL 3.4-5.0 GLOBULIN (test code=GLOB) 3.3 gram/dL 2.7-4.2 ALBUMIN/GLOBULIN RATIO (test code=A/G) 0.8 0.75-1.50 CALCIUM (test code=CA) 8.1 mg/dL 8.5-10.1 BILIRUBIN TOTAL (test code=BILT) 0.20 mg/dL 0.0-1.0 SGOT/AST (test code=AST) 30 IUnit/L 15-37 SGPT/ALT (test code=ALT) 38 IUnit/L 12-78 ALKALINE PHOSPHATASE TOTAL (test code=ALKP) 60 IUnit/L 45-117 Note change in reference range due to change in reagent. LACTIC [id number] 09:09:00* Test Item Value Reference Range Comments LACTIC ACID (test code=LACT) 1.1 mmol/L 0.4-1.9 COMPREHENSIVE METABOLIC [id number] 09:09:00* Test Item Value Reference Range Comments SODIUM (test code=NA) 142 mmol/L 136-145 POTASSIUM (test code=K) 3.7 mmol/L 3.5-5.1 CHLORIDE (test code=CL) 110.0 mmol/L 98-107 CARBON DIOXIDE (test code=CO2) mmol/L 21-32 ANION GAP (test code=GAP) 10-20 GLUCOSE (test code=GLU) mg/dL 74-106 BLOOD UREA NITROGEN (test code=BUN) mg/dL 7-18 GLOMERULAR FILTRATION RATE (test code=GFR) mL/min >=60 CREATININE (test code=CREAT) mg/dL 0.55-1.02 BUN/CREATININE RATIO (test code=BUN/CREA) 10-20 TOTAL PROTEIN (test code=PROT) gram/dL 6.4-8.2 ALBUMIN (test code=ALB) g/dL 3.4-5.0 GLOBULIN (test code=GLOB) gram/dL 2.7-4.2 ALBUMIN/GLOBULIN RATIO (test code=A/G) 0.75-1.50 CALCIUM (test code=CA) mg/dL 8.5-10.1 BILIRUBIN TOTAL (test code=BILT) mg/dL 0.0-1.0 SGOT/AST (test code=AST) IUnit/L 15-37 SGPT/ALT (test code=ALT) IUnit/L 12-78 ALKALINE PHOSPHATASE TOTAL (test code=ALKP) IUnit/L 45-117 [id number] 08:26:00* Test Item Value Reference Range Comments GLUBED (test code=GLUBED) 125 mg/dL 74-106 Performed by certified sprayer operator at [facility] CBC W/AUTO [id number] 06:28:00* Test Item Value Reference Range Comments WHITE BLOOD CELL (test code=WBC) 5.9 K/mm3 4.5-12.5 RED BLOOD CELL (test code=RBC) 3.48 mill/mm3 3.7-5.2 HEMOGLOBIN (test code=HGB) 9.2 gram/dL 11.5-15.5 RESULT VERIFIED BY REPEAT ANALYSIS HEMATOCRIT (test code=HCT) 31.1 % 36.0-46.0 MEAN CELL VOLUME (test code=MCV) 89.4 fL 80-98 MEAN CELL HGB (test code=MCH) 26.4 picogram 27.0-33.0 MEAN CELL HGB CONCETRATION (test code=MCHC) 29.6 gram/dL 33.0-36.0 RED CELL DISTRIBUTION WIDTH (test code=RDW) 21.2 % 11.6-16.2 RED CELL DISTRIBUTION WIDTH SD (test code=RDW-SD) 68.7 fL 37.0-51.0 PLATELET COUNT (test code=PLT) 174 K/mm3 150-450 RESULT VERIFIED BY REPEAT ANALYSIS MEAN PLATELET VOLUME (test code=MPV) 9.5 fL 6.7-11.0 NEUTROPHIL % (test code=NT%) 48.3 % 39.0-69.0 IMMATURE GRANULOCYTE % (test code=IG%) 0.3 % 0.0-5.0 LYMPHOCYTE % (test code=LY%) 41.4 % 25.0-55.0 MONOCYTE % (test code=MO%) 5.6 % 0.0-10.0 EOSINOPHIL % (test code=EO%) 4.1 % 0.0-5.0 BASOPHIL % (test code=BA%) 0.3 % 0.0-1.0 NUCLEATED RBC % (test code=NRBC%) 0.0 % 0-0 NEUTROPHIL # (test code=NT#) 2.86 K/mm3 1.8-7.7 IMMATURE GRANULOCYTE # (test code=IG#) 0.02 x10 3/uL 0-0.03 LYMPHOCYTE # (test code=LY#) 2.45 K/mm3 1.0-5.0 MONOCYTE # (test code=MO#) 0.33 K/mm3 0-0.8 EOSINOPHIL # (test code=EO#) 0.24 K/mm3 0.0-0.5 BASOPHIL # (test code=BA#) 0.02 K/mm3 0.0-0.2 NUCLEATED RBC # (test code=NRBC#) 0.00 K/mm3 0.0-0.1 MANUAL DIFF REQUIRED (test code=MDIFF) NO, ONLY SCAN NEEDED DIFFERENTIAL [id number] 06:28:00* Test Item Value Reference Range Comments STAIN ACCEPTABILITY (test code=STN ACCEPTABLE) CABOT RINGS (test code=CAB) MORPHOLOGY COMMENT (test code=MOC) PLATELET ESTIMATE (test code=PLTEST) PLATELET MORPHOLOGY (test code=PLTMORPH) CBC W/AUTO [id number] 06:28:00* Test Item Value Reference Range Comments WHITE BLOOD CELL (test code=WBC) 5.9 K/mm3 4.5-12.5 RED BLOOD CELL (test code=RBC) 3.48 mill/mm3 3.7-5.2 HEMOGLOBIN (test code=HGB) 9.2 gram/dL 11.5-15.5 RESULT VERIFIED BY REPEAT ANALYSIS HEMATOCRIT (test code=HCT) 31.1 % 36.0-46.0 MEAN CELL VOLUME (test code=MCV) 89.4 fL 80-98 MEAN CELL HGB (test code=MCH) 26.4 picogram 27.0-33.0 MEAN CELL HGB CONCETRATION (test code=MCHC) 29.6 gram/dL 33.0-36.0 RED CELL DISTRIBUTION WIDTH (test code=RDW) 21.2 % 11.6-16.2 RED CELL DISTRIBUTION WIDTH SD (test code=RDW-SD) 68.7 fL 37.0-51.0 PLATELET COUNT (test code=PLT) 174 K/mm3 150-450 RESULT VERIFIED BY REPEAT ANALYSIS MEAN PLATELET VOLUME (test code=MPV) 9.5 fL 6.7-11.0 NEUTROPHIL % (test code=NT%) 48.3 % 39.0-69.0 IMMATURE GRANULOCYTE % (test code=IG%) 0.3 % 0.0-5.0 LYMPHOCYTE % (test code=LY%) 41.4 % 25.0-55.0 MONOCYTE % (test code=MO%) 5.6 % 0.0-10.0 EOSINOPHIL % (test code=EO%) 4.1 % 0.0-5.0 BASOPHIL % (test code=BA%) 0.3 % 0.0-1.0 NUCLEATED RBC % (test code=NRBC%) 0.0 % 0-0 NEUTROPHIL # (test code=NT#) 2.86 K/mm3 1.8-7.7 IMMATURE GRANULOCYTE # (test code=IG#) 0.02 x10 3/uL 0-0.03 LYMPHOCYTE # (test code=LY#) 2.45 K/mm3 1.0-5.0 MONOCYTE # (test code=MO#) 0.33 K/mm3 0-0.8 EOSINOPHIL # (test code=EO#) 0.24 K/mm3 0.0-0.5 BASOPHIL # (test code=BA#) 0.02 K/mm3 0.0-0.2 NUCLEATED RBC # (test code=NRBC#) 0.00 K/mm3 0.0-0.1 MANUAL DIFF REQUIRED (test code=MDIFF) NO, ONLY SCAN NEEDED DIFFERENTIAL [id number] 06:28:00* Test Item Value Reference Range Comments STAIN ACCEPTABILITY (test code=STN ACCEPTABLE) MORPHOLOGY COMMENT (test code=MOC) PLATELET ESTIMATE (test code=PLTEST) PLATELET MORPHOLOGY (test code=PLTMORPH) CBC W/AUTO [id number] 06:28:00* Test Item Value Reference Range Comments WHITE BLOOD CELL (test code=WBC) 5.9 K/mm3 4.5-12.5 RED BLOOD CELL (test code=RBC) 3.48 mill/mm3 3.7-5.2 HEMOGLOBIN (test code=HGB) 9.2 gram/dL 11.5-15.5 RESULT VERIFIED BY REPEAT ANALYSIS HEMATOCRIT (test code=HCT) 31.1 % 36.0-46.0 MEAN CELL VOLUME (test code=MCV) 89.4 fL 80-98 MEAN CELL HGB (test code=MCH) 26.4 picogram 27.0-33.0 MEAN CELL HGB CONCETRATION (test code=MCHC) 29.6 gram/dL 33.0-36.0 RED CELL DISTRIBUTION WIDTH (test code=RDW) 21.2 % 11.6-16.2 RED CELL DISTRIBUTION WIDTH SD (test code=RDW-SD) 68.7 fL 37.0-51.0 PLATELET COUNT (test code=PLT) 174 K/mm3 150-450 RESULT VERIFIED BY REPEAT ANALYSIS MEAN PLATELET VOLUME (test code=MPV) 9.5 fL 6.7-11.0 NEUTROPHIL % (test code=NT%) 48.3 % 39.0-69.0 IMMATURE GRANULOCYTE % (test code=IG%) 0.3 % 0.0-5.0 LYMPHOCYTE % (test code=LY%) 41.4 % 25.0-55.0 MONOCYTE % (test code=MO%) 5.6 % 0.0-10.0 EOSINOPHIL % (test code=EO%) 4.1 % 0.0-5.0 BASOPHIL % (test code=BA%) 0.3 % 0.0-1.0 NUCLEATED RBC % (test code=NRBC%) 0.0 % 0-0 NEUTROPHIL # (test code=NT#) 2.86 K/mm3 1.8-7.7 IMMATURE GRANULOCYTE # (test code=IG#) 0.02 x10 3/uL 0-0.03 LYMPHOCYTE # (test code=LY#) 2.45 K/mm3 1.0-5.0 MONOCYTE # (test code=MO#) 0.33 K/mm3 0-0.8 EOSINOPHIL # (test code=EO#) 0.24 K/mm3 0.0-0.5 BASOPHIL # (test code=BA#) 0.02 K/mm3 0.0-0.2 NUCLEATED RBC # (test code=NRBC#) 0.00 K/mm3 0.0-0.1 MANUAL DIFF REQUIRED (test code=MDIFF) NO, ONLY SCAN NEEDED DIFFERENTIAL [id number] 06:28:00* Test Item Value Reference Range Comments STAIN ACCEPTABILITY (test code=STN ACCEPTABLE) STAIN ACCEPTABLE ANISOCYTOSIS (test code=ANISO) 1+ MICROCYTOSIS (test code=MICR) 1+ ELLIPTOCYTES (test code=ELL) 1+ PLATELET ESTIMATE (test code=PLTEST) ADEQUATE PLATELET MORPHOLOGY (test code=PLTMORPH) NORMAL CBC W/AUTO [id number] 06:27:00* Test Item Value Reference Range Comments WHITE BLOOD CELL (test code=WBC) 5.9 K/mm3 4.5-12.5 RED BLOOD CELL (test code=RBC) 3.48 mill/mm3 3.7-5.2 HEMOGLOBIN (test code=HGB) 9.2 gram/dL 11.5-15.5 RESULT VERIFIED BY REPEAT ANALYSIS HEMATOCRIT (test code=HCT) 31.1 % 36.0-46.0 MEAN CELL VOLUME (test code=MCV) 89.4 fL 80-98 MEAN CELL HGB (test code=MCH) 26.4 picogram 27.0-33.0 MEAN CELL HGB CONCETRATION (test code=MCHC) 29.6 gram/dL 33.0-36.0 RED CELL DISTRIBUTION WIDTH (test code=RDW) 21.2 % 11.6-16.2 RED CELL DISTRIBUTION WIDTH SD (test code=RDW-SD) 68.7 fL 37.0-51.0 PLATELET COUNT (test code=PLT) 174 K/mm3 150-450 RESULT VERIFIED BY REPEAT ANALYSIS MEAN PLATELET VOLUME (test code=MPV) 9.5 fL 6.7-11.0 NEUTROPHIL % (test code=NT%) 48.3 % 39.0-69.0 IMMATURE GRANULOCYTE % (test code=IG%) 0.3 % 0.0-5.0 LYMPHOCYTE % (test code=LY%) 41.4 % 25.0-55.0 MONOCYTE % (test code=MO%) 5.6 % 0.0-10.0 EOSINOPHIL % (test code=EO%) 4.1 % 0.0-5.0 BASOPHIL % (test code=BA%) 0.3 % 0.0-1.0 NUCLEATED RBC % (test code=NRBC%) 0.0 % 0-0 NEUTROPHIL # (test code=NT#) 2.86 K/mm3 1.8-7.7 IMMATURE GRANULOCYTE # (test code=IG#) 0.02 x10 3/uL 0-0.03 LYMPHOCYTE # (test code=LY#) 2.45 K/mm3 1.0-5.0 MONOCYTE # (test code=MO#) 0.33 K/mm3 0-0.8 EOSINOPHIL # (test code=EO#) 0.24 K/mm3 0.0-0.5 BASOPHIL # (test code=BA#) 0.02 K/mm3 0.0-0.2 NUCLEATED RBC # (test code=NRBC#) 0.00 K/mm3 0.0-0.1 MANUAL DIFF REQUIRED (test code=MDIFF) NO, ONLY SCAN NEEDED DIFFERENTIAL [id number] 06:27:00* Test Item Value Reference Range Comments STAIN ACCEPTABILITY (test code=STN ACCEPTABLE) CABOT RINGS (test code=CAB) MORPHOLOGY COMMENT (test code=MOC) PLATELET ESTIMATE (test code=PLTEST) PLATELET MORPHOLOGY (test code=PLTMORPH) CBC W/AUTO [id number] 06:27:00* Test Item Value Reference Range Comments WHITE BLOOD CELL (test code=WBC) 5.9 K/mm3 4.5-12.5 RED BLOOD CELL (test code=RBC) 3.48 mill/mm3 3.7-5.2 HEMOGLOBIN (test code=HGB) 9.2 gram/dL 11.5-15.5 RESULT VERIFIED BY REPEAT ANALYSIS HEMATOCRIT (test code=HCT) 31.1 % 36.0-46.0 MEAN CELL VOLUME (test code=MCV) 89.4 fL 80-98 MEAN CELL HGB (test code=MCH) 26.4 picogram 27.0-33.0 MEAN CELL HGB CONCETRATION (test code=MCHC) 29.6 gram/dL 33.0-36.0 RED CELL DISTRIBUTION WIDTH (test code=RDW) 21.2 % 11.6-16.2 RED CELL DISTRIBUTION WIDTH SD (test code=RDW-SD) 68.7 fL 37.0-51.0 PLATELET COUNT (test code=PLT) 174 K/mm3 150-450 RESULT VERIFIED BY REPEAT ANALYSIS MEAN PLATELET VOLUME (test code=MPV) 9.5 fL 6.7-11.0 NEUTROPHIL % (test code=NT%) 48.3 % 39.0-69.0 IMMATURE GRANULOCYTE % (test code=IG%) 0.3 % 0.0-5.0 LYMPHOCYTE % (test code=LY%) 41.4 % 25.0-55.0 MONOCYTE % (test code=MO%) 5.6 % 0.0-10.0 EOSINOPHIL % (test code=EO%) 4.1 % 0.0-5.0 BASOPHIL % (test code=BA%) 0.3 % 0.0-1.0 NUCLEATED RBC % (test code=NRBC%) 0.0 % 0-0 NEUTROPHIL # (test code=NT#) 2.86 K/mm3 1.8-7.7 IMMATURE GRANULOCYTE # (test code=IG#) 0.02 x10 3/uL 0-0.03 LYMPHOCYTE # (test code=LY#) 2.45 K/mm3 1.0-5.0 MONOCYTE # (test code=MO#) 0.33 K/mm3 0-0.8 EOSINOPHIL # (test code=EO#) 0.24 K/mm3 0.0-0.5 BASOPHIL # (test code=BA#) 0.02 K/mm3 0.0-0.2 NUCLEATED RBC # (test code=NRBC#) 0.00 K/mm3 0.0-0.1 MANUAL DIFF REQUIRED (test code=MDIFF) NO, ONLY SCAN NEEDED DIFFERENTIAL [id number] 06:27:00* Test Item Value Reference Range Comments STAIN ACCEPTABILITY (test code=STN ACCEPTABLE) CABOT RINGS (test code=CAB) MORPHOLOGY COMMENT (test code=MOC) PLATELET ESTIMATE (test code=PLTEST) PLATELET MORPHOLOGY (test code=PLTMORPH) LACTIC [id number] 06:24:00* Test Item Value Reference Range Comments LACTIC ACID (test code=LACT) 3.1 mmol/L 0.4-1.9 Results called to [id number] by V.[email or web address] 12/02/18 0624Critical results verified and read back by Nurse? Y [id number] 01:44:00* Test Item Value Reference Range Comments GLUBED (test code=GLUBED) 96 mg/dL 74-106 Performed by certified sprayer operator at [facility] [id number] 21:32:00* Test Item Value Reference Range Comments GLUBED (test code=GLUBED) 152 mg/dL 74-106 Performed by certified sprayer operator at [facility] LACTIC [id number] 18:15:00* Test Item Value Reference Range Comments LACTIC ACID (test code=LACT) 1.9 mmol/L 0.4-1.9 [id number] 17:39:00* Test Item Value Reference Range Comments GLUBED (test code=GLUBED) 132 mg/dL 74-106 Performed by certified sprayer operator at [facility] LACTIC [id number] 16:20:00* Test Item Value Reference Range Comments LACTIC ACID (test code=LACT) 2.7 mmol/L 0.4-1.9 Results called to [id number] by [employer]LAB.LT 12/01/18 1620Critical results verified and read back by Nurse? Y [id number] 14:51:00* Test Item Value Reference Range Comments GLUBED (test code=GLUBED) 190 mg/dL 74-106 Performed by certified sprayer operator at [facility] LACTIC [id number] 12:40:00* Test Item Value Reference Range Comments LACTIC ACID (test code=LACT) 3.0 mmol/L 0.4-1.9 Results called to [id number] by [email or web address] 12/01/18 1240Critical results verified and read back by Nurse? Y PT HAS ULTRSOUND [email or web address] 12/01/18 1029URINALYSIS [id number] 12:00:00 * Test Item Value Reference Range Comments UA COLOR (test code=COLU) YELLOW YELLOW UA APPEARANCE (test code=APPU) CLEAR CLEAR UA GLUCOSE DIPSTICK (test code=DGLUU) NEGATIVE mg/dL NEGATIVE UA BILIRUBIN DIPSTICK (test code=BILU) NEGATIVE mg/dL NEGATIVE UA KETONE DIPSTICK (test code=KETU) Negative mg/dL NEGATIVE UA SPECIFIC GRAVITY (test code=SGU) >1.060 1.001-1.035 UA BLOOD DIPSTICK (test code=BRAVO) Negative NEGATIVE UA PH DIPSTICK (test code=RADHA) 5.0 5.0-8.0 UA PROTEIN DIPSTICK (test code=PROU) Negative mg/dL NEGATIVE UA UROBILINIOGEN DIPSTICK (test code=URO) NEGATIVE mg/dL NEGATIVE UA NITRITE DIPSTICK (test code=DOMINIK) NEGATIVE NEGATIVE UA LEUKOCYTE ESTERASE W REFLEX (test code=LEUUR) NEGATIVE NEGATIVE UA WBC (test code=WBCU) 0-5 #/HPF 0-5 UA RBC (test code=RBCU) 0-2 #/HPF 0-5 UA EPITHELIAL CELLS (test code=EPIU) FEW per HPF FEW UA MUCUS (test code=MUCU) FEW #/LPF FEW Urine Source? Clean CatchURINALYSIS [id number] 11:56:00* Test Item Value Reference Range Comments UA COLOR (test code=COLU) YELLOW YELLOW UA APPEARANCE (test code=APPU) CLEAR CLEAR UA GLUCOSE DIPSTICK (test code=DGLUU) NEGATIVE mg/dL NEGATIVE UA BILIRUBIN DIPSTICK (test code=BILU) NEGATIVE mg/dL NEGATIVE UA KETONE DIPSTICK (test code=KETU) Negative mg/dL NEGATIVE UA SPECIFIC GRAVITY (test code=SGU) >1.060 1.001-1.035 UA BLOOD DIPSTICK (test code=BRAVO) Negative NEGATIVE UA PH DIPSTICK (test code=RADHA) 5.0 5.0-8.0 UA PROTEIN DIPSTICK (test code=PROU) Negative mg/dL NEGATIVE UA UROBILINIOGEN DIPSTICK (test code=URO) NEGATIVE mg/dL NEGATIVE UA NITRITE DIPSTICK (test code=DOMINIK) NEGATIVE NEGATIVE UA LEUKOCYTE ESTERASE W REFLEX (test code=LEUUR) NEGATIVE NEGATIVE UA WBC (test code=WBCU) per HPF 0-5 Urine Source? Clean [id number] 08:02:00* Test Item Value Reference Range Comments TROPONIN-I (test code=TROPI) <0.015 ng/mL 0-0.045 COMMENTS TO TREASURER: COLLECT 3 HOURS AFTER PREVIOUS SAMPLELACTIC [id number] 07:50:00* Test Item Value Reference Range Comments LACTIC ACID (test code=LACT) 2.5 mmol/L 0.4-1.9 Results called to [id number] by VKimLABKimKA 12/01/18 0750Critical results verified and read back by Nurse? Y LACTIC [id number] 04:36:00* Test Item Value Reference Range Comments LACTIC ACID (test code=LACT) 2.3 mmol/L 0.4-1.9 Results called to [id number] by V.[email or web address].AG1 12/01/18 0436Critical results verified and read back by Nurse? Y [id number] 04:19:00* Test Item Value Reference Range Comments TROPONIN-I (test code=TROPI) <0.015 ng/mL 0-0.045 COMMENTS TO TREASURER: COLLECT 3 HOURS AFTER PREVIOUS [id number] 02:16:00* Test Item Value Reference Range Comments GLUBED (test code=GLUBED) 216 mg/dL 74-106 Performed by certified sprayer operator at [facility] LACTIC [id number] 01:56:00* Test Item Value Reference Range Comments LACTIC ACID (test code=LACT) 2.2 mmol/L 0.4-1.9 Results called to [id number] by V.LAB.AG1 12/01/18 0139Critical results verified and read back by Nurse? Y - CT ABD PELVIS W/O [id number] 00:12:00 Name: DEBRA TOWNSEND [facility] : 1940 Age/S: 78 / F [address] [facility] Unit #: [id number] Loc: [place] [address] Phys: Rylee Hardin MD Acct: [id number] Dis Date: Status: REG ER PHONE #: [phone] Exam Date: 11/30/2018 2350 FAX #: [phone] Reason: epigastric pain EXAMS: CPT CODE: [id number] CT ABD PELVIS W/O CONT 17240 AFTER HOURS SERVICE ON: 12/01/2018 12:[address] Scan of the Abdomen and Pelvis Without Contrast Location Code M12 History: epigastric pain Technique: Axial and reconstructed coronal scans were performed on a helical scanner pre oral and IV contrast. Study is limited secondary to lack of oral and IV contrast. One or more of the following dose reduction techniques were used: Automated exposure control, adjustment of the mA and/or kV according to patient size, and/or utilization of iterative reconstruction technique. Findings: Liver, pancreas and spleen are within normal limits. Gallbladder is absent. Trace free fluid is noted in the upper quadrants within the subhepatic and perisplenic spaces extending into the paracolic gutters. The adrenal glands and kidneys are unremarkable. There is no nephrolithiasis or hydronephrosis. There is a small hiatal hernia. Several bowel loops are dilated and fluid-filled with a transition point in the right hemipelvis. This lobe contains some formed stool. The bowel loops distal to this segment are decompressed. There is no pneumatosis or free air. Mild omar a is noted in the small bowel mesentery. Diverticular changes noted in th e sigmoid colon without evidence of diverticulitis. The appendix is vani l. Uterus and bladder are unremarkable. There is no adnexal mass. Impression: Mildly dilated fluid-filled small bowel with transition point in the distal jejunum possibly representing enteritis. Vascular abnormalities cannot be excluded without IV contr ast. No free air. Mild free fluid. Diverticulosis co li without diverticulitis. Small hiatal hernia. PAGE 1 Signed Report (CONTINUED) Name: DEBRA FARRELL [facility] : 1940 e/S: 78 / F [address] [facility] Unit #: [id number] Loc: [place] [address] Phys: Rylee Hardin MD Acct: [id number] Dis Date: Status: REG ER PHONE #: [phone] Exam Date: 11/30/2018 2350 FAX #: [phone] Reason: epigastric pain EXAMS: CPT CODE: [id number] CT ABD PELVIS W/O CONT 16373 <Continued> at 0012 Reported and signed by: Td Arguelles M.D. CC: Gilda Nicholas MD Technologist:GEORGE TAYLOR CTDI: DLP: Trnscb Date/Time: 12/01/2018 (11) [id number] Orig Print D/T: S: 12/01/2018 (001) CTDI: DLP: PAGE 2 Signed Report LACTIC ACID 2018-11-30 23:37:00* Test Item Value Reference Range Comments LACTIC ACID (test code=LACT) 2.1 mmol/L 0.4-1.9 Results called to [place] [address] by V.[email or web address] 11/30/18 2336Critical results verified and read back by Nurse? Y [id number] 23:21:00* Test Item Value Reference Range Comments AMMONIA (test code=AMM) 33 umol/L 11-32 PROCALCITONIN (PCT)2018-11-30 21:57:00* Test Item Value Reference Range Comments PROCALCITONIN (PCT) (test code=PROCAL) < 0.05 ng/ml Concentration Interpretation (ng/mL) <0.51 Sepsis is not likely. Local bacterial infection is possible. (LOW RISK for progression to Sepsis) 0.51 - 2.00 Sepsis is possible, but other conditions are known to elevate PCT as well. (MODERATE RISK for progression to Sepsis) > 2.00 Sepsis is likely, unless other causes are known. (HIGH RISK for progression to Severe Sepsis or Septic Shock) 10.00 High likelihood of Severe Sepsis or Septic or higher Shock. *Increased PCT levels may not always be related to systemic bacterial infection.*Low PCT levels do not automatically exclude the presence of bacterial infection.*All results should be interpreted taking into account the patients history. BASIC METABOLIC [id number] 21:35:00* Test Item Value Reference Range Comments SODIUM (test code=NA) 137 mmol/L 136-145 POTASSIUM (test code=K) 3.8 mmol/L 3.5-5.1 CHLORIDE (test code=CL) 103.0 mmol/L 98-107 CARBON DIOXIDE (test code=CO2) 25.0 mmol/L 21-32 ANION GAP (test code=GAP) 12.8 10-20 GLUCOSE (test code=GLU) 170 mg/dL 74-106 BLOOD UREA NITROGEN (test code=BUN) 11 mg/dL 7-18 GLOMERULAR FILTRATION RATE (test code=GFR) > 60 mL/min >=60 Estimated GFR by using Modified MDRD formula.Chronic kidney disease is defined as either kidney damageor GFR <60 mL/min/1.73 m2 for >3 months. CREATININE (test code=CREAT) 0.70 mg/dL 0.55-1.02 Note change in reference range due to change in reagent. BUN/CREATININE RATIO (test code=BUN/CREA) 15.3 10-20 CALCIUM (test code=CA) 9.1 mg/dL 8.5-10.1 HEPATIC FUNCTION [id number] 21:35:00* Test Item Value Reference Range Comments TOTAL PROTEIN (test code=PROT) 8.3 gram/dL 6.4-8.2 ALBUMIN (test code=ALB) 3.8 g/dL 3.4-5.0 GLOBULIN (test code=GLOB) 4.5 gram/dL 2.7-4.2 ALBUMIN/GLOBULIN RATIO (test code=A/G) 0.8 0.75-1.50 BILIRUBIN TOTAL (test code=BILT) 0.20 mg/dL 0.0-1.0 BILIRUBIN DIRECT (test code=BILD) 0.07 mg/dL 0.0-0.20 SGOT/AST (test code=AST) 18 IUnit/L 15-37 SGPT/ALT (test code=ALT) 23 IUnit/L 12-78 ALKALINE PHOSPHATASE TOTAL (test code=ALKP) 63 IUnit/L 45-117 Note change in reference range due to change in reagent. [id number] 21:35:00* Test Item Value Reference Range Comments LIPASE (test code=LIP) 143 U/L 73.0-393.0 HCG SERUM [id number] 21:35:00* Test Item Value Reference Range Comments HCG SERUM QUAL (test code=HCGQL) NEGATIVE NEGATIVE This HCGQL test is NOT applicable for MALE patients.Check with nurse about probable order error.If Tumor Marker Test needed, nurse should order test "HCGTU"(Test #550.03650) [id number] 21:35:00* Test Item Value Reference Range Comments TROPONIN-I (test code=TROPI) <0.015 ng/mL 0-0.045 BASIC METABOLIC [id number] 21:19:00* Test Item Value Reference Range Comments SODIUM (test code=NA) mmol/L 136-145 POTASSIUM (test code=K) mmol/L 3.5-5.1 CHLORIDE (test code=CL) mmol/L 98-107 CARBON DIOXIDE (test code=CO2) mmol/L 21-32 ANION GAP (test code=GAP) 10-20 GLUCOSE (test code=GLU) mg/dL 74-106 BLOOD UREA NITROGEN (test code=BUN) mg/dL 7-18 GLOMERULAR FILTRATION RATE (test code=GFR) mL/min >=60 CREATININE (test code=CREAT) mg/dL 0.55-1.02 BUN/CREATININE RATIO (test code=BUN/CREA) 10-20 CALCIUM (test code=CA) mg/dL 8.5-10.1 HEPATIC FUNCTION [id number] 21:19:00* Test Item Value Reference Range Comments TOTAL PROTEIN (test code=PROT) gram/dL 6.4-8.2 ALBUMIN (test code=ALB) g/dL 3.4-5.0 GLOBULIN (test code=GLOB) gram/dL 2.7-4.2 ALBUMIN/GLOBULIN RATIO (test code=A/G) 0.75-1.50 BILIRUBIN TOTAL (test code=BILT) mg/dL 0.0-1.0 BILIRUBIN DIRECT (test code=BILD) mg/dL 0.0-0.20 SGOT/AST (test code=AST) IUnit/L 15-37 SGPT/ALT (test code=ALT) IUnit/L 12-78 ALKALINE PHOSPHATASE TOTAL (test code=ALKP) IUnit/L 45-117 [id number] 21:19:00* Test Item Value Reference Range Comments LIPASE (test code=LIP) U/L 73.0-393.0 HCG SERUM [id number] 21:19:00* Test Item Value Reference Range Comments HCG SERUM QUAL (test code=HCGQL) NEGATIVE NEGATIVE This HCGQL test is NOT applicable for MALE patients.Check with nurse about probable order error.If Tumor Marker Test needed, nurse should order test "HCGTU"(Test #550.04919) [id number] 21:19:00* Test Item Value Reference Range Comments TROPONIN-I (test code=TROPI) ng/mL 0-0.045 CBC W/O [id number] 21:16:00* Test Item Value Reference Range Comments WHITE BLOOD CELL (test code=WBC) 10.4 K/mm3 4.5-12.5 RED BLOOD CELL (test code=RBC) 4.52 mill/mm3 3.7-5.2 HEMOGLOBIN (test code=HGB) 11.9 gram/dL 11.5-15.5 HEMATOCRIT (test code=HCT) 38.9 % 36.0-46.0 MEAN CELL VOLUME (test code=MCV) 86.1 fL 80-98 MEAN CELL HGB (test code=MCH) 26.3 picogram 27.0-33.0 MEAN CELL HGB CONCETRATION (test code=MCHC) 30.6 gram/dL 33.0-36.0 RED CELL DISTRIBUTION WIDTH (test code=RDW) 20.4 % 11.6-16.2 PLATELET COUNT (test code=PLT) 317 K/mm3 150-450 MEAN PLATELET VOLUME (test code=MPV) 9.1 fL 6.7-11.0 ALLYSON,[id number] 14:02:00 RUN DATE: 09/30/18 [place] - Lab PAGE 1 RUN TIME: 1402 Specimen Inqui ry RUN USER: INTERFACE PATIENT: TOWNSEND,DEBRA FAHEEM ACCT #: [id number] LOC: [facility] U #: [id number] AGE/SX: 77/F ROOM: [facility] RE09/28/18[facility] DR: George Nguyen MD : 44 BED: B DIS: STATUS: ADM IN TLOC: SPEC #: [id number] RECD: 09/29/18 STATUS: [facility] RE #: [id number] FER: 09/29/18 [facility] [address]: Luis Tomas MD ENTERED: 09/29/18 SP TYPE: BX DUODEN OTHR DR: Gilda Sutton MD, Maurice S MDORDERED: GROSS COPIES TO: Gilda Nicholas MD [address] [place] [address] Luis Tomas MD [address] [place] [address] PROCEDURES: GROSS (09/30/18-1312) TISSUES: 1. DUODENUM, NOS - SECOND PORTION BX 2. ANTRUM - BX 3. CARDIA, NOS - NODULE BX 4. ASCENDING CO KRISTA - POLYP BX 5. DESCENDING COLON - POLYP BX CLINICAL HISTORY COLLECTION DATE: 09/29/2018 ANEMIA ESOPHAGITIS, ESOPHAGEAL STRICT URE, GASTRIC NODULE, 8MM POLYPOID LESION 2ND PORTION OF DUODENUM C OMMENT Intradepartmental consultation: DMW FINAL DIAGNOSIS Second p ortion of duodenum, biopsy: SMALL BOWEL MUCOSA WITH PROMINENTLY DILATED L YMPHATIC SPACES AND MILD CHRONIC INFLAMMATION COMPATIBLE WITH LYMPHANGI ECTASIA NO INTRAEPITHELIAL INFLAMMATION PRESENT NEGATIVE FOR [place] CONTINUED ON NEXT PAGE RU Rafi DATE: 09/30/18 [place] - Lab PAGE 2 RUN TIME: 1402 Specimen Inquiry RUN USER: INTERFACE SPEC #: [id number] PATIENT: DEBRA TOWNSEND #[id number] (Continued) FINAL DIAGNOSIS (Co ntinued) Cardia nodule, biopsy: GASTRIC MUCOSA WITH FEW MILDLY DIL ATED GLANDULAR SPACES AND MILD CHRONIC INFLAMMATION COMPATIBLE WITH MIL D HYPERPLASTIC CHANGE NO ACUTE INFLAMMATORY INFILTRATE PRESENT NEG ATIVE FOR MALIGNANCY Gastric antrum, biopsy: REACTIVE GASTROPATHY NO ACUTE INFLAMMATORY INFILTRATE PRESENT NEGATIVE FOR INTESTINAL ME TAPLASIA NEGATIVE FOR HELICOBACTER ORGANISMS NEGATIVE FOR MALIGNAN CY Ascending colon polyp, biopsy: COLONIC MUCOSA WITH PROMINENT LYM PHOID AGGREGATE, MILD CHRONIC INFLAMMATION AND REACTIVE EPITHELIAL KANG GE NO ADENOMATOUS CHANGE PRESENT NEGATIVE FOR MALIGNANCY C OMPATIBLE WITH PROMINENT MUCOSAL FOLD Descending colon polyp, biopsy: COLONIC MUCOSA WITH MILD ARTIFACTUAL DISTORTION, MILD CHRONIC INFLA MMATION AND LYMPHOID AGGREGATES BLAND SUBMUCOSAL VASCULAR SPACES SUGGEST ROBERT OF AERTERIOVENOUS MALFORMATION NEGATIVE FOR MALIGNANCY RRB/luis D [phone] MACROSCOPIC The first specimen is received in formalin, labeled with the patient's name, identified as "secon d portion of duodenum", and consists of holliday biopsy tissue measuring 0.25 cm, s ubmitted as (1). The second specimen is received in formalin, labeled with the patient's name, identified as "cardia nodule", and consists of holliday biopsy tissue measuring up to 0.3 cm in aggregate, submitted as (2). The third specimen is received in formalin, labeled with the patient's name, identified as "antrum", and consists of holliday biopsy tissue measuring up to 0.3 cm in agg regate, submitted as (3) for H E and Giemsa stains. The fourth specimen is received in formalin, labeled with the patient's name, identified as "ascendi ng colon polyp", and consists of light holliday biopsy tissue CONTINUED ON NEXT PAGE RUN DATE: 09/30/18 [facility] PAGE 3 RUN TIME: 1402 Specimen Inquiry RUN USER: INTERFACE SPEC #: BM: [id number] PATIENT: DEBRA TOWNSEND #[id number] (Continued ) MACROSCOPIC (Continued) measuring 0.2 cm, submitted as (4). The specimen is received in formalin, labeled with the patient's name, identified as "descending colon polyp", and consists of holliday-pi nk biopsy tissue measuring 0.15 cm, submitted as (5). GROSS PERFORMED AT [facility] [address] [place] [address], [place] [address] [phone])[phone] MICROSCOPIC MICROSCOPIC PERFORMED AT [facility] All of the stains, including any controls performed, fartun kramer. [facility] [address] [facility] [place] [address] (p)[phone] PERFORMING SITE Diagnosis performed at: [facility], [address] [place] [address] Signed SIGNATURE ON FILE Candelario Bhandari 09/30/18 1402 END OF REPORT
[2019-06-23] MEDS ORDERED: SODIUM CHLORIDE 0.9% 1000ML 1,000 ML IV ONE (13:00)
[2019-06-23] MEDS ORDERED: HEPARIN SOD (PORCINE) 5,000 UNIT/ML VIAL IV ONE (13:00)
[2019-06-23] MEDS ORDERED: HEPARIN 25,000 UNIT 1,100 UNIT in DEXTROSE 5% 250ML 250 ML IV SCH (13:00)
[2019-06-23] MEDS ORDERED: ASPIRIN 81 MG CHEW TAB PO ONE (13:00)
[2019-06-23] MEDS ORDERED: SODIUM CHLORIDE FLUSH 10 ML SYR INJ PRN (13:00)
--- NOTE | 2019-06-23 13:05 | NUR ---
PT WEIGHED IN TRIAGE FOR ACCURATE WT.
[2019-06-23] MEDS ORDERED: HEPARIN 25,000 UNIT DRIP IV ONE (13:33)
[2019-06-23] MEDS: FAMOTIDINE 20 MG/2 ML VIAL IV SCH (14:02)
--- OUTSIDE RECORDS SUMMARY | 2019-06-23 14:03 | XMS REPORT | Continuity of Care Document ---
Author Author [employer] Address Unknown Phone Unavailable Care Team Providers Care Turner And Former Automatic Name Role Phone [employer] Unavailable Unavailable Problems Problem Status Onset Date Classification Date Reported Comments Source Noninfective gastroenteritis and colitis, unspecified 11/03/2017 02/09/2018 [facility] CHEST PAIN, HEADACHE Active 05/26/2016 [facility] HEADACHE Active 05/26/2016 [facility] Essential (primary) hypertension 02/09/2018 [facility] Type 2 diabetes mellitus without complications 02/09/2018 [facility] Anxiety (finding) Active Problem 02/09/2018 [facility] Cerebrovascular accident (disorder) Resolved Problem 02/09/2018 [facility] Diabetes mellitus (disorder) Active Problem 02/09/2018 [facility] Gastroesophageal reflux disease (disorder) Active Problem 02/09/2018 [facility] Hypertensive disorder, systemic arterial (disorder) Active Problem 02/09/2018 [facility] Insomnia (disorder) Active Problem 02/09/2018 [facility] Meningitis (disorder) Resolved Problem 02/09/2018 [facility] Medications Medication Details Route Status Patient Instructions Ordering Provider Order Date Source Famotidine 20 MG Oral Tablet [Pepcid] 20 mg=1 tab, PO, BID, # 14 tab, 0 Refill(s) Active 11/04/2017 [facility] Ondansetron 4 MG Oral Tablet [Zofran] 4 mg=1 tab, PO, BID, PRN Nausea, # 10 tab, 0 Refill(s) Active 11/04/2017 [facility] Ondansetron 4 mg, 2 mL, Route: IVP, Drug form: INJ, ONCE, Dosing Weight 81.818, kg, Priority: STAT, Start date: 11/03/17 18:30:00 [employer], Stop date: 11/03/17 18:30:00 CSTNotes: (Same as: Zofran) MEDICATION WASTE Product Size: 4 mg Product Wasted: ___ mg Inactive 11/04/2017 [facility] Famotidine 20 mg, 2 mL, Route: IVP, Drug form: INJ, ONCE, Dosing Weight 81.818, kg, Priority: STAT, Start date: 11/03/17 18:30:00 [employer], Stop date: 11/03/17 18:30:00 CSTNotes: (Same as: Pepcid) Can be dilute in 5-10cc NS IVP: Slow IV push over at least 2 minutes. Inactive 11/04/2017 [facility] GI cocktail 30 mL, Route: PO, Drug Form: SUSP, Dosing Weight 81.818, kg, ONCE, STAT, Start date: 11/03/17 18:30:00 [employer], Stop date: 11/03/17 18:30:00 CSTNotes: G.I. Cocktail=antacid with simethicone 22.5 mL - lidocaine viscous 7.5 mL Inactive 11/04/2017 [facility] Solu-Medrol 125 mg, 2 mL, Route: IV, Drug form: INJ, ONCE, Dosing Weight 83.6, kg, Priority: NOW, Start date: 05/27/16 16:54:00 CDT, Stop date: 05/27/16 16:54:00 CDTNotes: (Same as:Solu-MEDROL, A-Methapred) Inactive 05/27/2016 [facility] gabapentin 300 MG Oral Capsule 300 mg=1 cap, PO, BID, # 60 cap, 0 Refill(s) Active 05/27/2016 [facility] Protonix 40 mg, 1 tab, Route: PO, Drug form: ECTAB, Before Dinner, Dosing Weight 83.636, kg, Start date: 05/27/16 16:30:00 CDT, Duration: 30 day, Stop date: 06/25/16 16:30:00 CDTNotes: Tablet should not be chewed or crushed. (Same as: Protonix) Inactive 05/27/2016 [facility] Acetaminophen 300 MG / Codeine Phosphate 30 MG Oral Tablet [Tylenol with Codeine #3] 1 tab, PO, Q6H, PRN Pain, X 5 day, # 20 tab, 0 Refill(s) Active 05/27/2016 [facility] Acetaminophen 325 MG / Hydrocodone Bitartrate 5 MG Oral Tablet 1 tab, Route: PO, Drug Form: TAB, Dosing Weight 83.6, kg, Q6H, PRN Pain Score 4-6, Start date: 05/27/16 12:07:00 CDT, Duration: 30 day, Stop date: 06/26/16 12:06:00 CDTNotes: (Same as: [place] 325/5) Do not exceed 4gm/day of acetaminophen. Inactive 05/27/2016 [facility] Saline Flush 0.9% 10 ml, Route: IVP, Drug Form: INJ, Dosing Weight 83.636, kg, Q12H, Start date: 05/27/16 9:00:00 CDT, Duration: 30 day, Stop date: 06/25/16 21:00:00 CDTNotes: (Same as: BD Posiflush) Inactive 05/27/2016 [facility] Streptococcus pneumoniae serotype 1 capsular antigen diphtheria [id number] protein conjugate vaccine / Streptococcus pneumoniae serotype 14 capsular antigen diphtheria [id number] protein conjugate vaccine / Streptococcus pneumoniae serotype 18C capsular antigen d 0.5 mL, Route: IM, Drug Form: INJ, Daily, Start date: 05/27/16 9:00:00 CDT, Duration: 1 doses or times, Stop date: 05/27/16 9:00:00 CDTNotes: Lightly roll vial (DO NOT SHAKE) before administration. (Same as: Prevnar 13) Inactive 05/27/2016 [facility] Aspirin 81 mg, 1 tab, Route: PO, Drug form: ECTAB, Daily, Dosing Weight 83.636, kg, Start date: 05/27/16 9:00:00 CDT, Duration: 30 day, Stop date: 06/25/16 9:00:00 CDTNotes: Do not crush or chew. (Same As: Ecotrin) Inactive 05/27/2016 [facility] Hydrochlorothiazide 12.5 MG / valsartan 160 MG Oral Tablet 1 tab, PO, Daily, # 30 tab, 0 Refill(s) Active 05/27/2016 [facility] Alprazolam 0.25 MG Oral Tablet 0.25 mg=1 tab, PO, TID, PRN as needed for anxiety, 0 Refill(s) Active 05/27/2016 [facility] Trazodone Hydrochloride 50 MG Oral Tablet 50 mg=1 tab, PO, Bedtime, # 30 tab, 1 Refill(s) Active 05/27/2016 [facility] glimepiride 2 mg oral tablet 2 mg=1 tab, PO, Breakfast, # 30 tab, 0 Refill(s) Active 05/27/2016 [facility] omeprazole 40 mg oral delayed release capsule 40 mg=1 cap, PO, Daily, # 30 cap, 0 Refill(s) Active 05/27/2016 [facility] ferrous sulfate 325 mg oral enteric coated tablet 325 mg=1 tab, PO, BID, give with orange juice, # 60 tab, 1 Refill(s) Active 05/27/2016 [facility] Saline Flush 0.9% 10 ml, Route: IVP, Drug Form: INJ, Dosing Weight 83.636, kg, PRN, PRN Line Flush, Start date: 05/27/16 5:56:00 CDT, Duration: 30 day, Stop date: 06/26/16 5:55:00 CDTNotes: (Same as: BD Posiflush) Inactive 05/27/2016 [facility] Morphine 2 mg, 1 mL, Route: IVP, Drug form: INJ, Q15Min, Dosing Weight 83.636, kg, PRN Chest Pain, Start date: 05/27/16 5:56:00 CDT, Duration: 2 doses or times, Stop date: Limited # of timesNotes: (Same as:MO RPhine Sulfate) Inactive 05/27/2016 [facility] Nitroglycerin 0.4 mg, 1 tab, Route: SL, Drug form: TAB, Q5Min, Dosing Weight 83.636, kg, PRN Chest Pain, Start date: 05/27/16 5:56:00 CDT, Duration: 3 doses or times, Stop date: Limited # of timesNotes: (Same as:N itroquick, Nitrostat) "Do Not Crush" Sublingual tablet Inactive 05/27/2016 [facility] Ondansetron 4 mg, 1 tab, Route: PO, Drug form: TAB, Q8H, Dosing Weight 83.636, kg, PRN Nausea & Vomiting, Start date: 05/27/16 5:56:00 CDT, Duration: 30 day, Stop date: 06/26/16 5:55:00 CDTNotes: (Same as: Zofran) Inactive 05/27/2016 [facility] Acetaminophen 650 mg, 2 tab, Route: PO, Drug form: TAB, Q4H, Dosing Weight 83.636, kg, PRN Headache 1-5, Start date: 05/27/16 5:56:00 CDT, Duration: 30 day, Stop date: 06/26/16 5:55:00 CDTNotes: Do not exceed 4 gm /day. (Same as: Tylenol) Inactive 05/27/2016 [facility] Lovenox 40 mg, 0.4 mL, Route: SUB-Q, Drug form: INJ, [id number], Dosing Weight 83.636, kg, Start date: 05/27/16 5:00:00 CDT, Duration: 30 day, Stop date: 06/25/16 5:00:00 CDTNotes: (Same as: Lovenox) Inactive 05/27/2016 [facility] Aspirin 325 mg, 1 tab, Route: PO, Drug form: TAB, ONCE, Dosing Weight 83.636, kg, Priority: STAT, Start date: 05/27/16 3:38:00 CDT, Stop date: 05/27/16 3:38:00 CDTNotes: Take with food. Inactive 05/27/2016 [facility] Ibuprofen 600 mg, Route: PO, ONCE, Dosing Weight 83.636, kg, Priority: STAT, Start date: 05/27/16 0:21:00 CDT, Stop date: 05/27/16 0:21:00 CDT Inactive 05/27/2016 [facility] Acetaminophen 650 mg, Route: PO, Drug form: TAB, ONCE, Dosing Weight 83.636, kg, Priority: STAT, Start date: 05/27/16 0:21:00 CDT, Stop date: 05/27/16 0:21:00 CDT Inactive 05/27/2016 [facility] Allergies, Adverse Reactions, Alerts No Known Medication Allergies Immunizations Immunization Date Given Site Status Last Updated Comments Source pneumococcal 13-valent vaccine 05/27/2016 Not Given [facility] Results Order Name Results Value Reference Range Date Interpretation Comments Source CARDIAC ENZYMES CK MB Index <1.7 0.0 - 2.5 11/03/2017 [facility] CARDIAC ENZYMES CK MB <0.5 0.5 - 3.6 11/03/2017 [facility] CARDIAC ENZYMES Total CK 30 12 - 191 11/03/2017 [facility] CARDIAC ENZYMES Troponin-I <0.02 0.00 - 0.40 11/03/2017 [facility] CHEM PANEL Lipase Lvl 140 73 - 393 11/03/2017 [facility] CHEM PANEL eGFR 77 11/03/2017 Result [...] should be multiplied by the estimated BMI. [facility] CHEM PANEL A/G Ratio 0.9 0.7 - 1.6 11/03/2017 [facility] CHEM PANEL Globulin 4.4 2.7 - 4.2 11/03/2017 [facility] CHEM PANEL AGAP 14.7 10.0 - 20.0 11/03/2017 [facility] CHEM PANEL B/C Ratio 19 6 - 25 11/03/2017 [facility] CHEM PANEL Bili Total 0.5 0.2 - 1.3 11/03/2017 [facility] CHEM PANEL Alk Phos 85 39 - 136 11/03/2017 [facility] CHEM PANEL Albumin Lvl 3.8 3.5 - 5.0 11/03/2017 [facility] CHEM PANEL ALT 24 0 - 65 11/03/2017 [facility] CHEM PANEL AST 17 0 - 37 11/03/2017 [facility] CHEM PANEL Calcium Lvl 9.1 8.5 - 10.5 11/03/2017 [facility] CHEM PANEL Total Protein 8.2 6.4 - 8.4 11/03/2017 [facility] CHEM PANEL Potassium Lvl 3.7 3.5 - 5.1 11/03/2017 [facility]M PANEL Chloride Lvl 102 95 - 109 11/03/2017 [facility] CHEM PANEL CO2 23 24 - 32 11/03/2017 [facility] CHEM PANEL Glucose Lvl 162 70 - 99 11/03/2017 [facility] CHEM PANEL BUN 15 7 - 22 11/03/2017 [facility] CHEM PANEL Creatinine Lvl 0.77 0.50 - 1.40 11/03/2017 [facility] CHEM PANEL Sodium Lvl 136 135 - 145 11/03/2017 [facility] CHEM PANEL eGFR 86 11/03/2017 Result [...] should be multiplied by the estimated BMI. [facility] CHEM PANEL POC Creatinine 0.7 0.5 - 1.4 11/03/2017 [facility] HEMATOLOGY Lymphocytes 12.3 20.0 - 40.0 11/03/2017 [facility] HEMATOLOGY Segs 83.2 45.0 - 75.0 11/03/2017 [facility] HEMATOLOGY Segs-Bands # 11.1 1.5 - 8.1 11/03/2017 [facility] HEMATOLOGY Basophils 0.4 0.0 - 1.0 11/03/2017 [facility] HEMATOLOGY Eosinophils 0.4 0.0 - 4.0 11/03/2017 [facility] HEMATOLOGY Monocytes 3.7 2.0 - 12.0 11/03/2017 [facility] HEMATOLOGY Lymphocytes # 1.6 1.0 - 5.5 11/03/2017 [facility] Monocytes # 0.5 0.0 - 0.8 11/03/2017 [facility] HEMATOLOGY RBC 4.52 4.20 - 5.40 11/03/2017 [facility] Hgb 13.5 12.0 - 16.0 11/03/2017 [facility] WBC 13.3 3.7 - 10.4 11/03/2017 [facility] Platelet 267 133 - 450 11/03/2017 [facility] MPV 7.4 7.4 - 10.4 11/03/2017 [facility] HEMATOLOGY MCH 29.9 27.0 - 31.0 11/03/2017 [facility] HEMATOLOGY MCHC 33.7 32.0 - 36.0 11/03/2017 [facility] HEMATOLOGY RDW 14.3 11.5 - 14.5 11/03/2017 [facility] HEMATOLOGY Hct 40.2 36.0 - 48.0 11/03/2017 [facility] HEMATOLOGY MCV 88.8 80.0 - 98.0 11/03/2017 [facility] CARDIAC ENZYMES Total CK 46 12 - 191 05/27/2016 [facility] CARDIAC ENZYMES Troponin-I <0.02 0.00 - 0.40 05/27/2016 [facility] CARDIAC ENZYMES Troponin-I <0.02 0.00 - 0.40 05/27/2016 [facility] CARDIAC ENZYMES Total CK 48 12 - 191 05/27/2016 [facility] LIPIDS VLDL 73 05/27/2016 [facility] LIPIDS LDL (Calculated) 66 <=99 mg/dL 05/27/2016 [facility] LIPIDS Trig 364 <=149 mg/dL 05/27/2016 [facility] LIPIDS Chol 168 <=199 mg/dL 05/27/2016 [facility] LIPIDS HDL 29 >=61 mg/dL 05/27/2016 [facility] LIPIDS CHD Risk 5.79 3.90 - 5.80 05/27/2016 [facility] URINE AND STOOL UA Urobilinogen <=1.0 mg/dL 0.1 - 1.0 05/27/2016 [facility] URINE AND STOOL UA Color Ltyellow 05/27/2016 [facility] URINE AND STOOL UA RBC 1 0 - 2 05/27/2016 [facility] URINE AND STOOL UA Ketones Negative mg/dL Negative mg/dL 05/27/2016 [facility] URINE AND STOOL UA Nitrite Negative (05/27/16 1:15 AM) Negative 05/27/2016 [facility] URINE AND STOOL UA Leuk Est Trace *ABN* (05/27/16 1:15 AM) Negative 05/27/2016 [facility] URINE AND STOOL UA Sq Epi Occasional /LPF Few /LPF 05/27/2016 [facility] URINE AND STOOL UA WBC 2 0 - 5 05/27/2016 [facility] URINE AND STOOL UA Protein Negative mg/dL Negative mg/dL 05/27/2016 [facility] URINE AND STOOL UA Spec Grav 1.010 <=1.030 05/27/2016 [facility] URINE AND STOOL UA pH 6.0 5.0 - 8.0 05/27/2016 [facility] URINE AND STOOL UA Blood Negative (05/27/16 1:15 AM) Negative 05/27/2016 [facility] URINE AND STOOL UA Bili Negative *NA* (05/27/16 1:15 AM) Negative 05/27/2016 [facility] URINE AND STOOL UA Glucose Negative mg/dL Negative mg/dL 05/27/2016 [facility] URINE AND STOOL UA Turbidity Clear (05/27/16 1:15 AM) Clear 05/27/2016 [facility] CARDIAC ENZYMES Total CK 67 12 - 191 05/27/2016 [facility] CARDIAC ENZYMES CK MB 1.0 0.5 - 3.6 05/27/2016 [facility] CARDIAC ENZYMES Troponin-I <0.02 0.00 - 0.40 05/27/2016 [facility] CARDIAC ENZYMES CK MB Index 1.5 0.0 - 2.5 05/27/2016 [facility] CHEM PANEL Globulin 4.1 2.7 - 4.2 05/27/2016 [facility] CHEM PANEL A/G Ratio 0.9 0.7 - 1.6 05/27/2016 [facility] CHEM PANEL AGAP 10.6 10.0 - 20.0 05/27/2016 [facility] CHEM PANEL B/C Ratio 22 6 - 25 05/27/2016 [facility] CHEM PANEL eGFR 81 05/27/2016 Result [...] should be multiplied by the estimated BMI. [facility] CHEM PANEL Bili Total 0.2 0.2 - 1.3 05/27/2016 [facility] CHEM PANEL BUN 16 7 - [...] PANEL AST 24 0 - 37 05/27/2016 [facility] CHEM PANEL ALT 33 0 - 65 05/27/2016 [facility] CHEM PANEL Albumin Lvl 3.6 3.5 - 5.0 05/27/2016 [facility] HEMATOLOGY MCH 30.6 27.0 - 31.0 05/27/2016 [facility] HEMATOLOGY MCV 89.6 80.0 - 98.0 05/27/2016 [facility] HEMATOLOGY Hct 37.1 36.0 - 48.0 05/27/2016 [facility] HEMATOLOGY Hgb 12.7 12.0 - 16.0 05/27/2016 [facility] HEMATOLOGY RDW 13.3 11.5 - 14.5 05/27/2016 [facility] HEMATOLOGY Platelet 261 133 - 450 05/27/2016 [facility] HEMATOLOGY MPV 7.1 7.4 - 10.4 05/27/2016 [facility] HEMATOLOGY MCHC 34.1 32.0 - 36.0 05/27/2016 [facility] HEMATOLOGY RBC 4.14 4.20 - 5.40 05/27/2016 [facility] HEMATOLOGY WBC 7.1 3.7 - 10.4 05/27/2016 [facility] HEMATOLOGY Eosinophils 3.6 0.0 - 4.0 05/27/2016 [facility] HEMATOLOGY Basophils 0.6 0.0 - 1.0 05/27/2016 [facility] HEMATOLOGY Monocytes 6.6 2.0 - 12.0 05/27/2016 [facility] HEMATOLOGY Segs 51.1 45.0 - 75.0 05/27/2016 [facility] HEMATOLOGY Lymphocytes 38.1 20.0 - 40.0 05/27/2016 [facility] HEMATOLOGY Monocytes # 0.5 0.0 - 0.8 05/27/2016 [facility] HEMATOLOGY Lymphocytes # 2.7 1.0 - 5.5 05/27/2016 [facility] HEMATOLOGY Segs-Bands # 3.7 1.5 - 8.1 05/27/2016 [facility] HEMATOLOGY Eosinophils # 0.3 0.0 - 0.5 05/27/2016 [facility] Pathology Reports No Data Provided for This Section Diagnostic Reports Report Value Date Source Brain wo contrast CT Patient Name: FAHEEM KNAPP : 1940; Age: 75 years y/o Female MR: [id number] Study: Brain wo contrast CT 05/26/2016 10:12 [...] to the previous exam. SL: PJOHNSON-ALEKSANDR 05/26/2016 [facility] Consultation Notes No Data Provided for This Section Discharge Summaries No Data Provided for This Section History and Physicals No Data Provided for This Section Vital Signs Vital Sign Value Date Comments Source Systolic (mm Hg) 147 11/04/2017 [facility] Diastolic (mm Hg) 62 11/04/2017 [facility] Respitory Rate 17 11/04/2017 [facility] Temperature Oral (F) 98.4 F 11/04/2017 [facility] Systolic (mm Hg) 165 11/04/2017 [facility] Diastolic (mm Hg) 56 11/04/2017 [facility] Respitory Rate 20 11/04/2017 [facility] Temperature Oral (F) 98.3 F 11/04/2017 [facility] Systolic (mm Hg) 160 11/04/2017 [facility] Diastolic (mm Hg) 62 11/04/2017 [facility] Respitory Rate 21 11/04/2017 [facility] Weight 81.818 11/03/2017 [facility] BMI Calculated 35.23 11/03/2017 [facility] Height 152.4 cm 11/03/2017 [facility] Temperature Oral (F) 97.8 F 11/03/2017 [facility] Heart Rate 89 11/03/2017 [facility] Respitory Rate 15 05/27/2016 [facility] Systolic (mm Hg) 151 05/27/2016 [facility] Diastolic (mm Hg) 65 05/27/2016 [facility] Temperature Oral (F) 98.0 F 05/27/2016 [facility] Heart Rate 74 05/27/2016 [facility] Systolic (mm Hg) 124 05/27/2016 [facility] Diastolic (mm Hg) 56 05/27/2016 [facility] Respitory Rate 15 05/27/2016 [facility] Heart Rate 66 05/27/2016 [facility] Temperature Oral (F) 98.3 F 05/27/2016 [facility] Respitory Rate 18 05/27/2016 [facility] Systolic (mm Hg) 150 05/27/2016 [facility] Diastolic (mm Hg) 72 05/27/2016 [facility] Temperature Oral (F) 97.6 F 05/27/2016 [facility] Height 152.4 cm 05/27/2016 [facility] Weight 83.6 05/27/2016 [facility] BMI Calculated 35.99 05/27/2016 [facility] Heart Rate 64 05/27/2016 [facility] Weight 83.636 05/27/2016 [facility] Encounters Location Location Details Encounter Type Encounter Number Reason For Visit Attending Provider ADM Date DC Date Status Source [facility] Observation [id number] Marcus Kohli 05/27/2016 05/27/2016 [facility] Emergency [id number] Ike Arizmendi 11/03/2017 11/04/2017 [facility] Procedures Procedure Code Date Perfomer Comments Source Cholecystectomy [id number] [facility] Assessment and Plan No Data Provided for This Section Plan of Care No Data Provided for This Section Social History Social History Date Source Social History TypeResponse Substance Abuse Use: None. Alcohol Never Smoking Status Never smoker; Previous treatment: None; Exposure to Tobacco Smoke None; Cigarette Smoking Last 365 Days No; Reg Smoking Cessation Counseling No entered on: 11/03/17 05/27/2016 [facility] Family History No Data Provided for This Section Advance Directives No Data Provided for This Section Functional Status No Data Provided for This Section
--- NOTE | 2019-06-23 14:06 | NUR ---
H&P cc: 78yoF, PCP Dr Ann, developed leg pain for 8 days and walking difficulty. PMH: DM, HTN, Stroke PShx: cholecystectomy, GI Allergies; see emr Fh/SH; single; no etoh/cigs/illicits Meds; see emr ROS: no f/c/s/N/V/D/ARANDA/cp/sob/skin rash/back pain v/s revd PE; tired appearing anicteric ns1s2 mod bs soft nt nd no edema; RIGHT TAPER AND FLOATER/HYPEREMIC IN APPEARANCE; unable to palpate DP due to tenderness of feet a&ox3; cordova skin dry labs/meds see emr A/P: 78yoF Ischemic limb disease/PAD- asa/heparin DM-hba1c/lipids HTN- treat as needed HLD- check lipids Prop: pepcid on heparin Dispo: monitor closely; cardiology; Yoav Beckett MD, PhD.
[2019-06-23] MEDS ORDERED: LOSARTAN-HCTZ1 EACH PO (14:10)
[2019-06-23] MEDS ORDERED: FENOFIBRATE160 MG PO (14:10)
[2019-06-23] MEDS ORDERED: OMEPRAZOLE40 MG PO (14:10)
[2019-06-23] MEDS ORDERED: CLOPIDOGREL75 MG PO (14:10)
[2019-06-23 14:15] LABS: BASOPHILS # (AUTO) 0.1 (0.0-0.1); BASOPHILS % 0.7 % (0.0-1.0); EOSINOPHILS # (AUTO) 0.2 (0.0-0.4); EOSINOPHILS % 3.1 % (0.0-6.0); HEMATOCRIT 31.5 % (34.2-44.1); HEMOGLOBIN 9.6 g/dL (12.0-16.0); LYMPHOCYTES # (AUTO) 2.3 (1.0-3.2); LYMPHOCYTES % 32.7 % (18.0-39.1); MEAN CORPUSCULAR HEMOGLOBIN 24.4 pg (28-32); MEAN CORPUSCULAR HGB CONC 30.5 g/dL (31-35); MEAN CORPUSCULAR VOLUME 80.2 fL (81-99); MONOCYTES # (AUTO) 0.4 (0.2-0.8); MONOCYTES % 5.2 % (4.4-11.3); NEUTROPHILS # (AUTO) 4.1 (2.1-6.9); PLATELET COUNT 268 x10e3/uL (140-360); RED BLOOD COUNT 3.93 x10e6/uL (3.6-5.1); RED CELL DISTRIBUTION WIDTH 15.8 % (11.7-14.4)
[2019-06-23 14:25] LABS: INR 0.92; PARTIAL THROMBOPLASTIN TIME 34.3 seconds (23.8-35.5); PROTHROMBIN TIME 12.9 seconds (11.9-14.5)
--- NOTE | 2019-06-23 14:31 | Diagnostic Imaging Report ---
Chest, portable AP view History: PAD, ischemic foot Comparison: No comparisons available for review IMPRESSION: The cardiomediastinal silhouette and pulmonary vasculature are within normal limits. The lungs are clear without evidence of consolidation or effusion. Mild bibasilar atelectasis. There are no acute osseous abnormalities. Signed by: Sam Mcfadden MD on 06/23/2019 2:28 PM
[2019-06-23 14:32] LABS: ALANINE AMINOTRANSFERASE 13 IU/L (0-55); ALBUMIN 3.8 g/dL (3.5-5.0); ALKALINE PHOSPHATASE 60 IU/L (40-150); ANION GAP 12.6 mmol/L (8-16); BLOOD UREA NITROGEN 10 mg/dL (7-26); BUN/CREATININE RATIO 12 (6-25); CARBON DIOXIDE 25 mmol/L (22-29); CHLORIDE 103 mmol/L (98-107); CREATINE KINASE 23 IU/L (29-168); CREATININE, SERUM 0.84 mg/dL (0.57-1.11); EST GLOMERULAR FILTRATION RATE > 60 ML/MIN (60-); GLUCOSE 131 mg/dL (74-118); POTASSIUM 3.6 mmol/L (3.5-5.1); SODIUM 137 mmol/L (136-145)
[2019-06-23] MEDS: MORPHINE SULFATE 2 MG/ML SYR 1ML IV PRN ×3 (14:39→22:00)
[2019-06-23] MEDS: ONDANSETRON HCL INJ 2MG/ML 2ML 2 MG/ML VIAL IV PRN (14:39)
--- NOTE | 2019-06-23 15:40 | NUR ---
RCD PT FROM ER BY BED PT IS ALERT AND ORIENTED VITALS CHECKED PT RESTING ON BED FAMILY AT BED SIDE ADMISSION ASSESSMENT DONE PT C/O PAIN ON RT FOOT REDNESS AND SWELLING OVER THERE STARTED ON LAST WEEK ,PT IN HEPARIN DRIP IV PATENT ,PT IS URUGUAYAN SPEAKING FAMILY WITH PT INSTRUCTED PT AND FAMILY REGARDING HOSPITAL POLICY AND ROUTINE BED LOW AND LOCKED CALL LIGHT IN REACH
[2019-06-23 16:00] VITALS: BP 156/64
[2019-06-23 16:27] VITALS: BP 156/64
[2019-06-23 16:57] VITALS: BP 156/64
--- NOTE | 2019-06-23 19:02 | NUR ---
RECEIVED PT RESTING IN BED WITH NO S/S OF DISTRESS.RESPIRATIONS EVEN/NON LABORED.PT ON HEPARIN INFUSION AT 1100 UNITS/HR AT THIS TIME.PT DENIES NEEDS CURRENTLY.INSTRUCTED PT TO CALL FOR ASSISTANCE NEEDED BY USING CALL LIGHT.FAMILY AT BEDSIDE.CALL LIGHT WITHIN EASY REACH.WILL CONTINUE TO MONITOR.
--- NOTE | 2019-06-23 19:02 | NUR ---
PT RESTING ON BED BED SIDE REPORT GIVEN TO ONCOMING NURSE
[2019-06-23 21:28] VITALS: BP 166/67
[2019-06-23 21:29] VITALS: BP 166/67
--- NOTE | 2019-06-23 21:29 | NUR ---
PTT RESULTS CAME BACK NOTED 236.1,PER PROTOCOL HOLD INFUSION FOR 60 MINUTES AND DECREASE RATE BY 200 UNITS/HR.PTT IN 6 HOURS.
--- NOTE | 2019-06-23 22:29 | NUR ---
HEPARIN INFUSION STARTED BACK AT THIS TIME AT 900 UNITS/HR PER PROTOCOL.
[2019-06-23 22:36] LABS: CREATINE KINASE MB 0.6 ng/mL (0-5.0)
[2019-06-24] VITALS (7 sets, daily range): BP systolic 130–159; BP diastolic 57–70
[2019-06-24] MEDS: MORPHINE SULFATE 2 MG/ML SYR 1ML IV PRN ×7 (01:00→22:36)
[2019-06-24] MEDS: FAMOTIDINE 20 MG/2 ML VIAL IV SCH ×2 (01:07→13:00)
--- NOTE | 2019-06-24 02:32 | Consultation ---
DATE OF CONSULTATION: 06/23/2019 Cardiology Consultation REQUESTING PHYSICIAN: Yoav Beckett MD. REASON FOR CONSULTATION: Peripheral arterial disease. HISTORY OF PRESENT ILLNESS: This is a 78-year-old woman with history of hypertension, hyperlipidemia, diabetes mellitus, and history of CVA, who was seen in clinic earlier this week with discoloration of the toes of her right foot as well as rest pain that improves with sitting upright. Bilateral lower extremity arterial Doppler was performed, which was suggestive of significant stenosis in the right common femoral artery as well as occlusion in bilateral dorsalis pedis arteries. She was scheduled for nuclear stress test given concomitant complaint of chest pain as well as echocardiogram. The patient was seen for nuclear stress test today and reports pain in her lower extremity persists. She was therefore sent to the ER for anticoagulation and expedited peripheral angiogram. The patient has no new complaints other than as above. REVIEW OF SYSTEMS: Negative except as per HPI. PAST MEDICAL HISTORY: 1. Hypertension. 2. Hyperlipidemia. 3. Diabetes mellitus. 4. History of CVA. PAST SURGICAL HISTORY: 1. Cholecystectomy. 2. Intestinal resection. ALLERGIES: NO KNOWN DRUG ALLERGIES. MEDICATIONS: Please see medication list. SOCIAL HISTORY: Denies tobacco, alcohol, or illicit drugs. FAMILY HISTORY: Pertinent for mother who of myocardial infarction and brother who of myocardial infarction. OBJECTIVE: VITAL SIGNS: Temperature 98.1 degrees, pulse 66, respiratory rate 18, blood pressure 182/71, oxygen saturation 100%. GENERAL: Well-developed, well-nourished woman. HEENT: Normocephalic, atraumatic. Pupils equal. No scleral icterus. NECK: Supple. No thyromegaly or cervical lymphadenopathy. No carotid bruits. LUNGS: Clear to auscultation bilaterally. No wheezes or crackles. CVS: Normal rate, regular rhythm. No murmur. Normal S1, S2. ABDOMEN: Soft, nontender. EXTREMITIES: No edema. There is a dusky discoloration at the tip of the right great toe as well as right 4th digit. There is also discoloration of the 2nd and 3rd digits of the right foot. Nonpalpable dorsalis pedis and posterior tibial arteries. LABORATORY DATA: WBC 7.9, hemoglobin 9.6, hematocrit 31.5, platelets 268. Sodium 137, potassium 3.6, chloride 103, CO2 of 25, BUN 10, creatinine 0.84. IMPRESSION: 1. Critical limb ischemia. 2. Hypertension. 3. Hyperlipidemia. 4. Diabetes mellitus. 5. History of cerebrovascular accident. RECOMMENDATIONS: Keep the patient on heparin drip. Plan for peripheral angiogram possibly later, likely Wednesday. Nuclear stress test was without evidence of ischemia. Continue home cardiac medications including Plavix, fenofibrate, and losartan/hydrochlorothiazide. Check fasting lipid panel. The patient's blood pressure is elevated. We will assess response to resuming her home cardiac medications. Thank you for this consult. We will continue to follow. Kassie Estrella MD ABS/MODL /[id number]
--- NOTE | 2019-06-24 03:29 | NUR ---
BLOOD DRAWN FOR LAB PTT.PT TOLERATED WELL.BED IN LOWEST/LOCKED POSITION.CALL LIGHT WITHIN EASY REACH.
--- NOTE | 2019-06-24 04:39 | NUR ---
PTT RESULTS BACK NOTED 70.7 .THERAPEUTIC PER HEPARIN PROTOCOL.PTT IN 6 HOURS.
--- NOTE | 2019-06-24 06:57 | NUR ---
BEDSIDE SHIFT REPORT GIVEN TO ONCOMING NURSE.PT RESTING IN BED WITH NO S/S OF DISTRESS.
--- NOTE | 2019-06-24 07:05 | NUR ---
RCD PT AT BED PT IS ALERT AND ORIENTED PT RESTING ON BED PT IN HEPARIN DRIP IV PATENT BY SALINE FLUSH BED LOW AND LOCKED CALL LIGHT IN REACH
--- NOTE | 2019-06-24 07:57 | NUR ---
IM- progress note O/N no events ROS: no f/c/s/N/V/D/ARANDA/cp/sob/skin rash/back pain v/s revd PE; tired appearing anicteric ns1s2 mod bs soft nt nd no edema; RIGHT DIRECTOR OF DIGITAL PLATFORMS/HYPEREMIC IN APPEARANCE; unable to palpate DP due to tenderness of feet a&ox3; cordova skin dry labs/meds see emr A/P: 78yoF Ischemic limb disease/PAD- asa/heparin DM-hba1c/lipids HTN- treat as needed HLD- check lipids Prop: pepcid on heparin Dispo: monitor closely; cardiology; 06/24 stress negative; cont hep gtt; angio pending; Hba1c 8, check lipids Yoav Beckett MD, PhD.
[2019-06-24] MEDS: ASPIRIN 81 MG ENTERIC COATED PO SCH (09:00)
--- NOTE | 2019-06-24 09:45 | NUR ---
PTT REPORT 89.5 ,DECREASED 100 UNITS NOW RUNNING 8 UNITS
[2019-06-24 10:18] LABS: BASOPHILS % 0.5 % (0.0-1.0); EOSINOPHILS # (AUTO) 0.3 (0.0-0.4); EOSINOPHILS % 4.9 % (0.0-6.0); HEMATOCRIT 29.2 % (34.2-44.1); HEMOGLOBIN 8.8 g/dL (12.0-16.0); LYMPHOCYTES # (AUTO) 1.7 (1.0-3.2); LYMPHOCYTES % 28.3 % (18.0-39.1); MEAN CORPUSCULAR HEMOGLOBIN 24.4 pg (28-32); MEAN CORPUSCULAR HGB CONC 30.1 g/dL (31-35); MEAN CORPUSCULAR VOLUME 81.1 fL (81-99); MONOCYTES # (AUTO) 0.4 (0.2-0.8); MONOCYTES % 6.6 % (4.4-11.3); NEUTROPHILS # (AUTO) 3.5 (2.1-6.9); NEUTROPHILS % 59.4 % (38.7-80.0); PLATELET COUNT 254 x10e3/uL (140-360); RED CELL DISTRIBUTION WIDTH 15.8 % (11.7-14.4)
[2019-06-24 10:38] LABS: ALANINE AMINOTRANSFERASE 20 IU/L (0-55); ALBUMIN 3.3 g/dL (3.5-5.0); ALBUMIN/GLOBULIN RATIO 0.9 (0.8-2.0); ALKALINE PHOSPHATASE 64 IU/L (40-150); ANION GAP 10.8 mmol/L (8-16); BLOOD UREA NITROGEN 9 mg/dL (7-26); BUN/CREATININE RATIO 11 (6-25); CARBON DIOXIDE 24 mmol/L (22-29); CHLORIDE 104 mmol/L (98-107); CHOL/HDL RATIO 6.4 (3.0-3.6); CHOLESTEROL 148 MD/DL (0-199); EST GLOMERULAR FILTRATION RATE > 60 ML/MIN (60-); GLUCOSE 167 mg/dL (74-118); HDL CHOLESTEROL 23 MG/DL (40-60); LDL CHOLESTEROL 64 MG/DL (60-130); POTASSIUM 3.8 mmol/L (3.5-5.1); SODIUM 135 mmol/L (136-145); TRIGLYCERIDES 303 MG/DL (0-149)
[2019-06-24 10:51] LABS: CHOL/HDL RATIO 6.7 (3.0-3.6)
[2019-06-24 11:04] LABS: CREATINE KINASE MB 0.6 ng/mL (0-5.0)
[2019-06-24] MEDS: HEPARIN 25,000 UNIT 25,000 UNIT in DEXTROSE 5% 250ML 250 ML IV SCH (13:51)
[2019-06-24] MEDS ORDERED: HEPARIN 25,000 UNIT 25,000 UNIT in DEXTROSE 5% 250ML 250 ML IV SCH (14:00)
[2019-06-24] MEDS ORDERED: FENOFIBRATE 145 MG TAB PO SCH (15:00)
[2019-06-24] MEDS: ONDANSETRON HCL INJ 2MG/ML 2ML 2 MG/ML VIAL IV PRN (15:00)
[2019-06-24] MEDS: OMEPRAZOLE 20 MG CAP PO SCH (15:00)
[2019-06-24] MEDS: LOSARTAN POTASSIUM 100 MG TAB PO SCH (15:00)
[2019-06-24] MEDS: CLOPIDOGREL BISULFATE 75 MG TAB PO SCH (15:45)
--- NOTE | 2019-06-24 16:00 | NUR ---
PTT REPORT BACK IT 79.6 IN THERAPEUTIC CONTINUE THE SAME AND PTT AFTER 6 HRS
[2019-06-24 16:47] LABS: CREATINE KINASE MB 0.6 ng/mL (0-5.0)
--- NOTE | 2019-06-24 18:30 | Progress Note ---
DATE: 06/24/2019 Cardiology Progress Note SUBJECTIVE: The patient complains of her right foot hurting and also the toes still being purple. Denies any chest pain or shortness of breath. OBJECTIVE: VITAL SIGNS: Temperature 97.5, pulse 71, respiratory rate 17, blood pressure 155/67, and oxygen saturation 93% on room air. GENERAL: Alert and oriented x3. Resting comfortably in bed. Does not appear to be in acute distress. Family at the bedside. NECK: Supple. No JVD noted. LUNGS: Clear to auscultation throughout. No wheezing. No rhonchi or crackles. CARDIOVASCULAR: Normal rate and rhythm. No murmurs. No gallops. ABDOMEN: Soft and nontender. EXTREMITIES: Lower extremity, no edema. Absent pedal pulses on the right foot. Diminished pedal pulses on the left lower extremity. The 1st, 2nd, and 3rd digits on the right foot are purple in color. CARDIOVASCULAR MEDICATIONS: Losartan 50 mg p.o. daily, fenofibrate 160 mg p.o. daily, and aspirin 81 mg p.o. daily. LABORATORY DATA: WBC 5.93, hemoglobin 8.8, hematocrit 29.2, and platelets 254. Sodium 135, potassium 3.5, BUN 9, and creatinine 0.80. Triglycerides 298, total cholesterol 147, and HDL 22. TELEMETRY: Sinus rhythm. IMPRESSION: 1. Critical limb ischemia. 2. Hypertension. 3. Hyperlipidemia. 4. Diabetes mellitus. 5. History of cerebrovascular accident. RECOMMENDATIONS: Home medications have been resumed. She is on heparin drip at this time. Plan for peripheral angiogram this Wednesday. Will need to be n.p.o. on Wednesday night. Nuclear stress test without any evidence of ischemia. Continue to monitor the patient's blood pressure closely. We will continue to follow this patient very closely. Dictated by Polina Ramires, KIARRA MD WILLIAM Breen/RIGOBERTO /[id number]
--- NOTE | 2019-06-24 19:12 | NUR ---
PT RESTING ON BED BED SIDE REPORT GIVEN TO ONCOMING NURSE
--- NOTE | 2019-06-24 19:13 | NUR ---
RECEIVED PT RESTING IN BED WITH NO S/S OF DISTRESS.RESPIRATIONS EVEN/NON LABORED.PT DENIES ANY NEEDS AT THIS TIME.HEPARIN INFUSING AT 800 UNITS/HR(8 ML/HR)AT THIS TIME.FAMILY AT BEDSIDE.BED IN LOWEST/LOCKED POSITION.CALL LIGHT WITHIN EASY REACH.
--- NOTE | 2019-06-24 22:00 | NUR ---
BLOOD DRAWN FOR LAB PTT AND SENT TO LAB.PT TOLERATED WELL.FAMILY AT BEDSIDE.BED IN LOWEST/LOCKED POSITION.CALL LIGHT WITHIN EASY REACH.
--- NOTE | 2019-06-24 23:00 | NUR ---
PTT RESULTS BACK NOTED 79.6,THERAPEUTIC PER HEPARIN PROTOCOL.HEPARIN INFUSING AT 800 UNITS/HR AT THIS TIME.
[2019-06-25] VITALS (7 sets, daily range): BP systolic 116–147; BP diastolic 52–63
[2019-06-25] MEDS: FAMOTIDINE 20 MG/2 ML VIAL IV SCH ×2 (01:26→13:03)
[2019-06-25] MEDS: MORPHINE SULFATE 2 MG/ML SYR 1ML IV PRN ×6 (01:37→22:28)
--- NOTE | 2019-06-25 06:29 | NUR ---
PTT RESULTS BACK NOTED 56.9,THERAPEUTIC PER HEPARIN PROTOCOL.PTT DAILY.
--- NOTE | 2019-06-25 07:40 | NUR ---
REPORT GIVEN TO ONCOMING NURSE.PT RESTING IN BED WITH NO S/S OF DISTRESS.
--- NOTE | 2019-06-25 07:43 | NUR ---
Report rec'd from Placido Dash RN and the patient is sleeping in bed. IVF is infusing and the daughter is at the bedside.
[2019-06-25] MEDS: ASPIRIN 81 MG ENTERIC COATED PO SCH (08:08)
[2019-06-25] MEDS: LOSARTAN POTASSIUM 100 MG TAB PO SCH (08:12)
[2019-06-25] MEDS: OMEPRAZOLE 20 MG CAP PO SCH (08:12)
[2019-06-25] MEDS: CLOPIDOGREL BISULFATE 75 MG TAB PO SCH (08:12)
--- NOTE | 2019-06-25 08:21 | NUR ---
IM- progress note O/N no events ROS: no f/c/s/N/V/D/ARANDA/cp/sob/skin rash/back pain v/s revd PE; tired appearing anicteric ns1s2 mod bs soft nt nd no edema; RIGHT CLINICAL NURSE REVIEWER/HYPEREMIC IN APPEARANCE; unable to palpate DP due to tenderness of feet a&ox3; cordova skin dry labs/meds see emr A/P: 78yoF Ischemic limb disease/PAD- asa/heparin DM-hba1c/lipids HTN- treat as needed HLD- check lipids Prop: pepcid on heparin Dispo: monitor closely; cardiology; 06/24 stress negative; cont hep gtt; angio pending; Hba1c 8, check lipids 06/25 angio pending; Yoav Beckett MD, PhD.
[2019-06-25] MEDS: FENOFIBRATE 145 MG TAB PO SCH (08:32)
--- NOTE | 2019-06-25 10:00 | NUR ---
The patient complained of right foot pain and has been medicated with Morphine. She states her pain is 7/10.
--- NOTE | 2019-06-25 13:30 | NUR ---
Patient is complaining of right foot pain again and is medicated with Morphine 2mg IV
[2019-06-25] MEDS: HEPARIN 25,000 UNIT 25,000 UNIT in DEXTROSE 5% 250ML 250 ML IV SCH (14:00)
--- NOTE | 2019-06-25 15:20 | Progress Note ---
DATE: 06/25/2019 Cardiology Progress Note SUBJECTIVE: The patient is without any new complaints, however, she continues to have some pain in her right lower extremity. OBJECTIVE: VITAL SIGNS: Temperature 98.1, pulse 66, respiratory rate 20, blood pressure 116/55, oxygen saturation 95% on room air. GENERAL: Alert and oriented x3. Resting comfortably in bed. Family at the bedside. NECK: Supple. No JVD noted. LUNGS: Clear to auscultation throughout. No wheezing. No rhonchi or crackles. CARDIOVASCULAR: Normal rate and rhythm. No murmurs, no gallops. ABDOMEN: Soft, nontender. LOWER EXTREMITY: absent pedal pulses on the right foot. Diminished pedal pulses to the left lower extremity. On the right foot, her 1st, 2nd, and 3rd digits are . CARDIOVASCULAR MEDICATIONS: Heparin IV drip, aspirin 81 mg p.o. daily, losartan 50 p.o. daily, Plavix 75 p.o. daily, fenofibrate 145 mg p.o. daily. TELEMETRY: Sinus rhythm. IMPRESSION: 1. Critical limb ischemia. 2. Hypertension. 3. Hyperlipidemia. 4. Diabetes mellitus. 5. History of cerebrovascular accident. RECOMMENDATIONS: Continue with the above-listed cardiac medication. Continue heparin drip. Plan for peripheral angiogram tomorrow. Will need to be n.p.o. after midnight. Once recovered, she will also need ischemic workup and a stress test. This may be done as outpatient. We will continue to monitor patient very closely. Dictated by Polina Ramires, KIARRA MD WILLIAM Breen/RIGOBERTO /[id number]
--- NOTE | 2019-06-25 17:40 | NUR ---
The patient has been complaining of the right foot pain that has been keeping her from comfortably ambulating. She gets up to the bathroom to the bedside commode, she is taking Morphine for the pain which she stated is helping. She signed her consent for tomorrow's angiogram and angioplasty. Information was given to the patient about a peripheral angiogram. The patient verbalized understanding about this procedure.
--- NOTE | 2019-06-25 19:25 | NUR ---
RECEIVED PT RESTING IN BED.RESPIRATIONS EVEN/NON LABORED.HEPARIN INFUSING AT 800 UNITS/HR AT THIS TIME.ORDER NOTED TO STOP HEPARIN AT 0100 FOR PROCEDURE IN THE AM.PT C/O PAIN TO RIGHT FOOT 03/13.PRN PAIN MEDICATION GIVEN PER DEC.PT'S SON AT BEDSIDE.BED POSITIONED IN THE LOWEST/LOCKED.CALL LIGHT WITHIN EASY REACH.
[2019-06-26] VITALS (9 sets, daily range): BP systolic 125–151; BP diastolic 50–65
--- NOTE | 2019-06-26 01:00 | NUR ---
STOPPED HEPARIN INFUSION ORDERED AT THIS TIME.PT RESTING IN BED WITH NO S/S OF DISTRESS.DAUGHTER AT BEDSIDE.CALL LIGHT WITHIN EASY REACH.
[2019-06-26] MEDS: FAMOTIDINE 20 MG/2 ML VIAL IV SCH ×3 (01:10→14:27)
[2019-06-26] MEDS: MORPHINE SULFATE 2 MG/ML SYR 1ML IV PRN ×3 (01:46→16:44)
--- NOTE | 2019-06-26 07:00 | NUR ---
BEDSIDE SHIFT REPORT RECEIVED FROM THE SPRAYING MACHINE OPERATOR RN. EDUCATED PT ABOUT FALL PRECAUTIONS. BED IS LOCKED. SIDE RAILS X2. PT REFUSED BED ALARM. CALL LIGHT IS WITH IN EASY REACH. INSTRUCTED PT TO USE CALL LIGHT FOR ANY NEEDS. PT VERBALIZED UNDERSTANDING. FAMILY AT BEDSIDE. PT DENIES NEEDS AT THIS TIME.
--- NOTE | 2019-06-26 07:21 | NUR ---
REPORT GIVEN TO ONCOMING NURSE.WALKING ROUNDS MADE.PT RESTING IN BED WITH NO S/S OF DISTRESS.
--- NOTE | 2019-06-26 07:30 | NUR ---
IM- progress note O/N no events ROS: no f/c/s/N/V/D/ARANDA/cp/sob/skin rash/back pain v/s revd PE; tired appearing anicteric ns1s2 mod bs soft nt nd no edema; RIGHT ANALYSIS EVALUATOR/HYPEREMIC IN APPEARANCE; unable to palpate DP due to tenderness of feet a&ox3; cordova skin dry labs/meds see emr A/P: 78yoF Ischemic limb disease/PAD- asa/heparin DM-hba1c/lipids HTN- treat as needed HLD- check lipids Prop: pepcid on heparin Dispo: monitor closely; cardiology; 06/24 stress negative; cont hep gtt; angio pending; Hba1c 8, check lipids 06/25 angio pending; 06/26 f/u Yoav Beckett MD, PhD.
[2019-06-26] MEDS ORDERED: MIDAZOLAM HCL 2 MG/2 ML VIAL ONE ×2 (08:44→10:13)
[2019-06-26] MEDS ORDERED: LIDOCAINE HCL 2% LOCAL 20 ML VIAL ONE (08:45)
[2019-06-26] MEDS ORDERED: FENTANYL CITRATE/PF 100MCG/2 ML INJ ONE (08:45)
[2019-06-26] MEDS ORDERED: HEPARIN SOD/SOD CHLORIDE 2,000 ML ONE (08:45)
[2019-06-26] MEDS ORDERED: SODIUM CHLORIDE 0.9% 1000ML 1,000 ML ONE ×2 (08:45→10:03)
[2019-06-26] MEDS ORDERED: IOPAMIDOL 300MG/ML 100 ML INFUS..BTL IV ONE ×2 (08:45→11:07)
[2019-06-26] MEDS: ASPIRIN 81 MG ENTERIC COATED PO SCH (09:00)
[2019-06-26] MEDS: CLOPIDOGREL BISULFATE 75 MG TAB PO SCH (09:00)
--- NOTE | 2019-06-26 09:14 | NUR ---
PT OFF UNIT FOR PROCEDURE.
[2019-06-26] MEDS ORDERED: VERAPAMIL HCL 2.5 MG/ML 2 ML VIAL ONE (10:03)
[2019-06-26] MEDS ORDERED: ASPIRIN 325 MG TAB ONE (11:23)
[2019-06-26] MEDS ORDERED: CLOPIDOGREL BISULFATE 75 MG TAB ONE (11:23)
--- NOTE | 2019-06-26 11:40 | NUR ---
PT RECEIVED FROM FROM EXECUTIVE DIRECTOR OF NURSING. 2 HOUR BEDREST, STOP HEPARIN AND CHANGE DIET FROM NPO TO CARDIAC PER EXECUTIVE DIRECTOR OF NURSING. . BED ALARM IS ON. CALL LIGHT WITH IN EASY REACH. PT VERBALIZED UNDERSTANDING AND DENIES NEEDS AT THIS TIME.
--- NOTE | 2019-06-26 14:00 | NUR ---
PLAVIX AND CLOPIDOGREL ALREADY GIVEN BY SERVICE STATION OPERATOR PER THE NURSE.
[2019-06-26] MEDS: LOSARTAN POTASSIUM 100 MG TAB PO SCH (14:18)
[2019-06-26] MEDS: FENOFIBRATE 145 MG TAB PO SCH (14:18)
[2019-06-26] MEDS: OMEPRAZOLE 20 MG CAP PO SCH (14:18)
--- NOTE | 2019-06-26 16:00 | NUR ---
PT TAKES GLIMEPIRIDE 1 MG DAILY AT HOME. PAGED DR. VAZQUEZ REGARDING THE SAME. NO NEW ORDERS RECEIVED AT THIS TIME.
[2019-06-26] MEDS ORDERED: GLIMEPIRIDE1 MG PO (16:52)
--- NOTE | 2019-06-26 18:04 | Progress Note ---
DATE: 06/26/2019 Cardiology Progress Note SUBJECTIVE: No major events overnight. OBJECTIVE: VITAL SIGNS: Temperature afebrile, pulse 52, respiratory rate 21, blood pressure 130/60, saturating 100% on room air. GENERAL: Elderly female, in no acute distress. CARDIOVASCULAR: Regular rate and rhythm. No murmurs, rubs, or gallops. LUNGS: Clear to auscultation bilaterally. ABDOMEN: Soft, nontender, and nondistended. NEURO AND PSYCH: Alert and oriented to person, place, and time. Normal affect. INPATIENT MEDICATIONS: Reviewed. LABORATORY DATA: Reviewed. TELEMETRY DATA: Reviewed, shows normal sinus rhythm. ASSESSMENT AND PLAN: 1. Critical limb ischemia. 2. Hypertension. 3. Hyperlipidemia. 4. Diabetes. 5. History of cerebrovascular accident. RECOMMENDATIONS: Had peripheral angiogram and intervention done this morning by me. Has severe three-vessel disease with diffuse disease of all three arteries below the level of the alaniz. Underwent angioplasty to the right anterior tibial artery. Attempt to cross the posterior tibial artery was unsuccessful. Residual disease is diffuse and very poor outflow, not amenable to percutaneous intervention. Recommend consult in Podiatry. The patient may require toe amputation, maybe a TMA eventually if the amputation site does not heal. Thank you for this consult. We will continue to follow. MD FARRAH Morlaes/ANNE MARIEL /[id number]
--- NOTE | 2019-06-26 19:00 | NUR ---
BEDSIDE SHIFT REPORT GIVEN TO THE BUS ASSISTANT RN. PT FAMILY AT BEDSIDE. PT DENIED FURTHER NEEDS.
--- NOTE | 2019-06-26 19:23 | NUR ---
Patient received lying in bed. AAO x 3. Family at bedside. Patient had no complaints of pain. No signs of respiratory distress. Dressing to left groin CDI. Fall precautions implemented. Patient instructed to call for assistance when needed. Call light within reach.
--- NOTE | 2019-06-26 21:09 | NUR ---
Patient complained of not having a bowel movement for [address] Sujit hameed. Awaiting call back.
[2019-06-26] MEDS ORDERED: SENNA-S TABLET PO ONE (21:15)
[2019-06-26] MEDS ORDERED: DOCUSATE SODIUM 100 MG CAP PO ONE (21:15)
--- NOTE | 2019-06-26 21:25 | NUR ---
Dr. Beckett returned call. New orders received.
[2019-06-26] MEDS: MAGNESIUM HYDROXIDE 30 ML UDC PO PRN (21:52)
[2019-06-27] VITALS (9 sets, daily range): BP systolic 115–144; BP diastolic 56–62
--- NOTE | 2019-06-27 05:35 | NUR ---
IM- progress note O/N no events ROS: no f/c/s/N/V/D/ARANDA/cp/sob/skin rash/back pain v/s revd PE; tired appearing anicteric ns1s2 mod bs soft nt nd no edema; RIGHT SENIOR OFFICE ASSISTANT/HYPEREMIC IN APPEARANCE; unable to palpate DP due to tenderness of feet a&ox3; cordova skin dry labs/meds see emr A/P: 78yoF Ischemic limb disease/PAD- asa/heparin DM-hba1c/lipids HTN- treat as needed HLD- check lipids Prop: pepcid on heparin Dispo: monitor closely; cardiology; 06/24 stress negative; cont hep gtt; angio pending; Hba1c 8, check lipids 06/25 angio pending; 06/26 f/u 06/27 Severe 3 vessel ds in arteries below level of alaniz s/p angioplasty to right ant tibial a. Diffuse residual ds; Podiatry consult; Yoav Beckett MD, PhD.
--- NOTE | 2019-06-27 06:25 | NUR ---
Dr. Zarina Moran paged regarding "Routine Consult". Reason: Critical foot ischemic disease. Awaiting call back.
--- NOTE | 2019-06-27 07:00 | NUR ---
Walking rounds done. Shift report given to oncoming nurse.
--- NOTE | 2019-06-27 07:00 | NUR ---
BEDSIDE SHIFT REPORT RECEIVED FROM THE METAL SPINNER RN. EDUCATED PT ABOUT FALL PRECAUTIONS. BED IS LOCKED AND BED ALARM IS ON. CALL LIGHT IS WITH IN EASY REACH. INSTRUCTED PT TO USE CALL LIGHT FOR ANY NEEDS. PT VERBALIZED UNDERSTANDING. PT DENIES NEEDS AT THIS TIME.
[2019-06-27] MEDS: ASPIRIN 81 MG ENTERIC COATED PO SCH (08:00)
[2019-06-27] MEDS: OMEPRAZOLE 20 MG CAP PO SCH (08:00)
[2019-06-27] MEDS: CLOPIDOGREL BISULFATE 75 MG TAB PO SCH (08:00)
[2019-06-27] MEDS: DOCUSATE SODIUM 100 MG CAP PO SCH ×2 (08:00→17:13)
[2019-06-27] MEDS: SENNA-S TABLET PO SCH ×2 (08:01→17:13)
[2019-06-27] MEDS: FENOFIBRATE 145 MG TAB PO SCH (08:01)
[2019-06-27] MEDS: LOSARTAN POTASSIUM 100 MG TAB PO SCH (08:02)
--- NOTE | 2019-06-27 12:30 | NUR ---
PAGED DR. VAZQUEZ REGARDING THE D/C PLAN AND REPORTED PT BLOOD SUGAR LEVEL.
[2019-06-27] MEDS: FAMOTIDINE 20 MG/2 ML VIAL IV SCH (13:52)
--- NOTE | 2019-06-27 16:20 | Consultation ---
DATE OF CONSULTATION: 06/27/2019 REASON FOR CONSULTATION: Ischemic right foot with the patient being a cxn-zbhesjo-jselgtjjo diabetic. HISTORY OF PRESENT ILLNESS: This is a pleasant 78-year-old female, who was seen at bedside, accompanied by son having some discomfort to the right lower extremity. She is denying any history of fever, chills, nausea, or vomiting. Since she has been in the hospital, she relates a lot less pain. PAST MEDICAL HISTORY: Remarkable for qdh-vydtfer-aukhlojfs diabetes, hypertension. PAST SURGICAL HISTORY: Remarkable for cholecystectomy and colon surgery. The patient recently had a peripheral angiogram and intervention per Dr. Bernardo. ALLERGIES: THE PATIENT DENIES. SOCIAL HISTORY: Denies any smoking, drinking, or recreational drug use. FAMILY HISTORY: Noncontributory. CURRENT MEDICATIONS: Note listed in chart including aspirin and Plavix. REVIEW OF SYSTEMS: CARDIAC: Denies any palpitations or arrhythmias. RESPIRATORY: Denies any shortness of breath or productive cough. GASTROINTESTINAL: Denies any diarrhea or constipation. PHYSICAL EXAMINATION: VITAL SIGNS: Afebrile. Pulse rate 72, respirations 18, blood pressure 143/62, and O2 saturation 99%. PODIATRIC PHYSICAL EXAMINATION: Reveals the following vasculature; pedal pulses of both the DP and PT are greatly diminished to both lower extremities. Skin temperature between warm and cold to touch, cyanotic toes, 1 through 4 digits of the right lower extremity. No open lesions noted. NEUROLOGICAL: Reveals some loss of protective sensation when utilizing Beaver-Giovanny 5% monofilament wire. Muscle mass is symmetrical. Muscle strength is 4 to 5/5 to all muscle groups. LABORATORY DATA: Show a white blood cell count of 5.9, hemoglobin 8.8 with a platelet count 354. ASSESSMENT: cyanotic toes as described above with peripheral arterial disease, status post angioplasty with 100% blockage from the . PLAN: We will continue conservative care with Plavix and aspirin. Nothing can be done as far as podiatric intervention at this time to the fact that is not warranted. The patient does understand that if her toes start turning black, she may end up needing an amputation level to be determined once that happens if it does. We will treat conservatively with Plavix and aspirin for now. The patient will have a surgical shoe dispensed. KAREN Moody/RIGOBERTO /[id number]
--- NOTE | 2019-06-27 17:00 | Progress Note ---
DATE: 06/27/2019 Cardiology Progress Note SUBJECTIVE: No major events overnight. OBJECTIVE: VITAL SIGNS: Temperature afebrile, pulse 80, respiratory rate 19, blood pressure 124/59, saturating 100% on room air. GENERAL: Elderly female, in no acute distress. CARDIOVASCULAR: Regular rate and rhythm. No murmurs, rubs, or gallops. LUNGS: Clear to auscultation bilaterally. ABDOMEN: Soft, nontender, nondistended. NEURO AND PSYCH: Alert and oriented to person, place, and time. Normal affect. INPATIENT MEDICATIONS: Reviewed. LABORATORY DATA: Reviewed. TELEMETRY DATA: Reviewed. ASSESSMENT: 1. Critical limb ischemia, status post peripheral angiography and intervention. 2. Hypertension. 3. Hyperlipidemia. 4. Diabetes. 5. History of cerebrovascular accident. RECOMMENDATIONS: Peripheral angiogram showed severe three-vessel akimw-dzh-wlsw disease with diffuse disease of the dorsalis pedis and posterior tibial arteries in the foot. Had intervention to this anterior tibial artery. Continues to have pain in the toes with a little purple, may develop gangrene. Given prolonged ischemia and very poor diffuse small vessel disease, defer management to Podiatry for now. Thank you for this consult. We will continue to follow. MD FARRAH Morales/RIGOBERTO /[id number]
--- NOTE | 2019-06-27 18:55 | NUR ---
Got bedside shift report from previous nurse. Call light within reach. Patient in bed. Patient in no pain or distress.
--- NOTE | 2019-06-27 19:00 | NUR ---
BEDSIDE SHIFT REPORT GIVEN TO THE SCHOOL HEALTH AIDE RN. PT DENIED FURTHER NEEDS.
[2019-06-27] MEDS: ONDANSETRON HCL INJ 2MG/ML 2ML 2 MG/ML VIAL IV PRN (20:30)
[2019-06-27] MEDS: MAGNESIUM HYDROXIDE 30 ML UDC PO PRN (20:30)
[2019-06-27] MEDS ORDERED: ATORVASTATIN 20 MG TAB PO SCH (21:00)
[2019-06-28] MEDS: FAMOTIDINE 20 MG/2 ML VIAL IV SCH (00:15)
[2019-06-28 01:01] VITALS: BP 129/51
[2019-06-28] MEDS ORDERED: ASPIRIN EC81 MG PO (06:39)
[2019-06-28] MEDS ORDERED: COLACE100 MG PO (06:39)
[2019-06-28] MEDS ORDERED: LIPITOR20 MG PO (06:39)
[2019-06-28] MEDS ORDERED: OMEPRAZOLE20 MG PO (06:39)
--- NOTE | 2019-06-28 06:44 | NUR ---
D/C summary Principal Dx: Ischemic limb disease/PAD- asa/heparin Severe 3 vessel ds in arteries below level of alaniz s/p angioplasty ot right ant tibial a. Diffucse disease. Secondary Dx: DM-hba1c/lipids HTN- treat as needed HLD- check lipids Prop: pepcid on heparin Dispo: monitor closely; cardiology; 06/24 stress negative; cont hep gtt; angio pending; Hba1c 8, check lipids 06/25 angio pending; 06/26 f/u 06/27 Severe 3 vessel ds in arteries below level of alaniz s/p angioplasty to right ant tibial a. Diffuse residual ds; Podiatry consult; Cleared by podiatry; d/c home f/u pcp 1 week and 1-2 weeks and 2 weeks stable d/c>35mins. Yoav Beckett MD, PhD.
--- NOTE | 2019-06-28 07:09 | NUR ---
Bedside shift report given to oncoming nurse. Call light within reach. Patient in no pain or distress.
--- NOTE | 2019-06-28 07:13 | NUR ---
Received bedside report from night nurse. Patient resting in bed, no signs of distress or c/o pain at this time. All safety measures in place. Will continue to monitor.
[2019-06-28 08:16] VITALS: BP 128/83
[2019-06-28] MEDS: ASPIRIN 81 MG ENTERIC COATED PO SCH (08:47)
[2019-06-28] MEDS: CLOPIDOGREL BISULFATE 75 MG TAB PO SCH (08:47)
[2019-06-28] MEDS: FENOFIBRATE 145 MG TAB PO SCH (08:47)
[2019-06-28] MEDS: DOCUSATE SODIUM 100 MG CAP PO SCH (08:47)
[2019-06-28] MEDS: SENNA-S TABLET PO SCH (08:47)
[2019-06-28] MEDS: LOSARTAN POTASSIUM 100 MG TAB PO SCH (08:47)
[2019-06-28] MEDS: OMEPRAZOLE 20 MG CAP PO SCH (08:47)
[2019-06-28 09:18] VITALS: BP 128/83
--- NOTE | 2019-06-28 10:05 | NUR ---
IMM letter delivered to pt bedside. Pt directed CM to speak with her daughter. CM explained Medicare rights. Daughter verbalized understanding. Wolof copy provided. Signed copy placed in chart. Copy to pt's daughter.
[2019-06-28] MEDS ORDERED: ONDANSETRON HCL 4 MG ORAL DISINTEGRATING TAB PO PRN (10:30)
[2019-06-28] MEDS ORDERED: FAMOTIDINE 20 MG TAB PO SCH (16:30)
--- NOTE | 2019-08-28 14:21 | Operative Report ---
DATE OF PROCEDURE: 06/26/2019 SURGEON: Benjy Bernardo MD INDICATION FOR PROCEDURE: Critical limb ischemia. PREPROCEDURE ASSESSMENT: The risks, benefits, and alternatives of treatment were explained to the patient prior to the procedure. Informed consent was obtained and documented in the medical record. The patient was deemed to be an appropriate candidate for moderate sedation. PROCEDURES PERFORMED: 1. Abdominal aortography. 2. Bilateral lower extremity angiography. 3. Right anterior tibial ENGINEER STEAM. 4. Catheter third-order placement. 5. Vascular closure device. PROCEDURE DETAILS: The patient was brought to the cardiac catheterization laboratory in a fasting state. The left groin was prepped and draped in sterile fashion. Access was obtained to the left common femoral artery using modified Seldinger technique and micropuncture needle under ultrasound fluoroscopic guidance. A 5-Italian sheath was inserted in the left common femoral artery without any difficulty. Abdominal aortography was performed using 5-Italian Omni Flush catheter. Access to the contralateral iliac system was obtained using [employer] Advantage wire through the same Omni Flush catheter. Omni Flush catheter were then advanced into the contralateral common femoral artery and multiple digital substraction angiograms were performed. This demonstrated severe [id number] runoff disease, of the right anterior tibial and a possible posterior tibial artery. A 5-Italian sheath was exchanged for a destination sheath catheter. Balloon angioplasty was performed using Ultraverse 2.5 x 220 mm balloon. This resulted in adequate recannulization of the right anterior tibial artery. We then attempted to recanalize the posterior tibial artery, however, were unsuccessful. Given diffuse disease and very poor . The destination sheath was then exchanged for a short 6-Italian sheath over [employer] Advantage wire and contralateral peripheral angiography was performed. Access site was closed using a Mynx vascular closure device. ACT near 300 was maintained throughout the case using boluses of heparin. The patient tolerated the procedure well. There were no immediate complications. SIGNIFICANT FINDINGS: Bilateral successful ENGINEER STEAM to right anterior tibial artery using GRAFTS AND IMPLANTS: None. SPECIMENS REMOVED: None. ESTIMATED BLOOD LOSS: 20 mL. COMPLICATIONS: None. FINAL RECOMMENDATIONS: 1. Continue aspirin and Plavix for 3 months followed by aspirin 81 mg daily for life. 2. Continue optimal medical therapy and risk factor control. 3. Follow up in 2 weeks post discharge. MD FARRAH Morales/MODL /[id number]
== END 2019-06-28 10:28 | disposition home or self-care (01) | DRG 254 ==
LOC: ER 12:27 → ERHOLD 12:57 → MED/SURG2 15:54
PROVIDERS: ADMIT Internal Medicine; ATTEND Internal Medicine
PROC: 047P3Z1 Dilation of Right Anterior Tibial Artery using Drug-Coated Balloon, Percutaneous Approach (ICD-10-PCS; principal; 2019-06-26)
PROC: B41D1ZZ Fluoroscopy of Aorta and Bilateral Lower Extremity Arteries using Low Osmolar Contrast (ICD-10-PCS; 2019-06-26)
DX: E11.51 Type 2 diabetes mellitus with diabetic peripheral angiopathy without gangrene (principal); I99.8 Other disorder of circulatory system; I10 Essential (primary) hypertension; E78.5 Hyperlipidemia, unspecified; Z86.73 Personal history of transient ischemic attack (TIA), and cerebral infarction without residual deficits; Z79.4 Long term (current) use of insulin; I70.211 Atherosclerosis of native arteries of extremities with intermittent claudication, right leg; I70.221 Atherosclerosis of native arteries of extremities with rest pain, right leg
CPT/HCPCS: 36247; 36415; 37228; 71045; 75625; 75716; 80053; 80061; 82550; 82553; 82948; 83036; 84484; 85025; 85610; 85730; 93005; 99284; C1725; C1760; C1769; C1887; J1644; J2001; J2250; J2270; J2405; J3010; J7030; Q9967

== ENCOUNTER → 2019-06-23 | Outpatient (CLI) | payer MEDICARE ==
[~2019-06-23] MED LIST: CLOPIDOGREL75 MG PO; FENOFIBRATE160 MG PO; GLIMEPIRIDE1 MG PO; LOSARTAN-HCTZ1 EACH PO; OMEPRAZOLE40 MG PO; REGADENOSON 0.4 MG/5 ML SYR IV ONE
--- NOTE | 2019-06-23 14:48 | Myoview Stress Test ---
DATE OF STUDY: 06/23/2019 08:30:00 Stress Test - Treadmill ONLY PROCEDURE TITLE: Rest/stress single isotope SPECT imaging with pharmacologic stress and gated SPECT imaging. INDICATION: Chest pain. PROCEDURE IN DETAIL: Pharmacologic stress testing was performed with regadenoson per protocol. The heart rate was 62 beats per minute at rest and increased to 96 beats per minute during the regadenoson infusion. The rest blood pressure was 147/52 mmHg and increased to 167/60 mmHg, which is a normal response. Resting electrocardiogram demonstrated normal sinus rhythm. There were no ST-segment changes suggestive of myocardial ischemia. Myocardial perfusion imaging was performed at rest following the injection of 11 mCi of tetrofosmin. At peak pharmacologic effect, the patient was injected with 33 mCi of tetrofosmin. Gated post-stress tomographic imaging was performed. FINDINGS: The overall quality of study is fair. Left ventricle cavity is noted to be normal size on the rest and stress studies. SPECT images demonstrate homogeneous tracer distribution throughout the myocardium. Gated SPECT imaging reveals normal myocardial thickening and wall motion. Left ventricular ejection fraction was calculated to be greater than 70%. IMPRESSION: Myocardial perfusion imaging is normal. Overall left ventricular systolic function was normal without regional wall motion abnormalities. Kassie Estrella MD ABS/MODL /[id number]
== END ==
LOC: NM 08:11
PROVIDERS: ATTEND Internal Medicine
DX: R07.9 Chest pain, unspecified (principal)
CPT/HCPCS: 36415; 78452; 82948; 93017; 93306; A9502; J2785

== ENCOUNTER → 2021-05-06 | Outpatient (CLI) | payer MEDICARE ==
[~2021-05-06] MED LIST changes: +ASPIRIN EC81 MG PO; +COLACE100 MG PO; +LIPITOR20 MG PO; +OMEPRAZOLE20 MG PO
== END ==
LOC: NM 09:28
PROVIDERS: ATTEND Internal Medicine
DX: R07.9 Chest pain, unspecified (principal)
CPT/HCPCS: 78452; 93017; 93306; A9502; J2785